=== PATIENT | male | born 1970 | race African-American/Black ===

== ENCOUNTER 2017-04-21 08:50 | Inpatient (IN) | payer OTHER ==
[~2017-04-21] VITALS: Ht 167.6 cm; Wt 125.7 kg
[2017-04-21] VITALS (11 sets, daily range): BP systolic 121–283; BP diastolic 57–145; PULSE 64–102; RESP 15–28; TEMP 98.1–99; O2SAT 95–100
[~2017-04-21 08:50] MED LIST: ERYT1O EACH EYE; GLUCTAB PO; HYDR-2768 PO; LISI-363 PO; LISI-587 PO
[2017-04-21] MEDS ORDERED: HYDR25TA5 PO (09:14)
[2017-04-21] MEDS ORDERED: METF500T PO (09:14)
[2017-04-21] MEDS ORDERED: LISI-515 PO (09:14)
--- NOTE | 2017-04-21 09:20 | PD ---
HPI Chief Complaint: Hypertension Time Seen by Provider: 09:09 Travel History International Travel<30 days: No Contact w/Intl Traveler<30days: No Traveled to known affect area: No History of Present Illness HPI 47 yo M c/o R forehead cephalgia, gradual onset over last 3 hours or so. 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 This morning he had 2 bowel movements, the prior was loose, as such the patient had no appetite, did not eat breakfast and did not take his lisinopril as he normally would every morning. HTN upon arrival noted. No LOC, numbness/tingling/weakness. No neck stiffness. [place] quality is throbbing and of moderate severity. PFSH Past Medical History ADHD: No Arthritis: No Asthma: No Autoimmune Disease: No Blood Disorders: No Anxiety: No Depression: No Heart Rhythm Problems: No Cancer: No Cardiovascular Problems: Yes (HTN/ POSSIBLE [place]) High Cholesterol: No Chemotherapy: No Chest Pain: No Congestive Heart Failure: No COPD: No Cerebrovascular Accident: No Diabetes: Yes Patient Takes Glucophage: Yes Diminished Hearing: No Endocrine: No Gastrointestinal Disorders: No GERD: No Glaucoma: No Genitourinary: No Headaches: No Hepatitis: No Hiatal Hernia: No Hypertension: Yes Immune Disorder: No Kidney Stones: No Musculoskeletal: Yes Neurologic: No Psychiatric: No Reproductive: No Respiratory: Yes Immunizations Current: Yes Migraines: No Myocardial Infarction: No Radiation Therapy: No Renal Failure: No Seizures: No Sickle Cell Disease: No Sleep Apnea: Yes Thyroid Disease: No Ulcer: No Past Surgical History Abdominal Surgery: No AICD: No Appendectomy: No Arteriovenous Shunt: No Cardiac Surgery: No Cholecystectomy: No Ear Surgery: No Endocrine Surgery: No Eye Surgery: No Genitourinary Surgery: No Gynecologic Surgery: No Insulin Pump: No Joint Replacement: No Neurologic Surgery: No Oral Surgery: No Pacemaker: No Thoracic Surgery: No Social History Alcohol Use: No Tobacco Use: No Substance Use: No Allergies-Medications (Allergen,Severity, Reaction): Coded Allergies: No Known Allergies (Verified , 02/21/16) Reported Meds & Prescriptions Reported Meds & Active Scripts Active Reported Lisinopril 20 Mg Tab 20 Mg PO DAILY Hydrochlorothiazide 25 Mg Tab 25 Mg PO DAILY Metformin (Metformin HCl) 500 Mg Tab 500 Mg PO BIDPC With meals Review of Systems Except as stated in HPI: all other systems reviewed are Neg General / Constitutional: No: Fever HENT: Positive: Headaches, No: Vertigo, Lightheadedness Neurologic: Positive: Headache, No: Weakness, Dizziness, Syncope, Focal Abnormalities, Coordination Problem, Change in Mentation, Slurred Speech, Paresthesia, Seizures, Sensory Disturbance Physical Exam Narrative GENERAL: 47 yo M, WNWD, mild distress 2/2 cephalgia SKIN: Warm and dry. HEAD: Atraumatic. Normocephalic. EYES: No scleral icterus. No injection or drainage. Normal ROM with conjugate gaze. PERRL. ENT: No nasal bleeding or discharge. Mucous membranes pink and moist. NECK: Trachea midline. No JVD. CARDIOVASCULAR: Regular rate and rhythm. RESPIRATORY: No accessory muscle use. Clear to auscultation. Breath sounds equal bilaterally. GASTROINTESTINAL: Abdomen soft, non-tender, nondistended. Hepatic and splenic margins not palpable. MUSCULOSKELETAL: Extremities without clubbing, cyanosis, or edema. No obvious deformities. NEUROLOGICAL: Awake and alert. No obvious cranial nerve deficits. Motor grossly within normal limits. Five out of 5 muscle strength in the arms and legs. Normal speech. PSYCHIATRIC: Appropriate mood and affect; insight and judgment normal. Data Data Last Documented VS Vital Signs Date Time Temp Pulse Resp B/P Pulse Ox O2 Delivery O2 Flow Rate FiO2 04/21/17 12:53 79 16 209/93 95 04/21/17 10:18 Room Air 04/21/17 08:58 98.1 VS reviewed Orders Complete Blood Count With Diff (04/21/17 09:18) Basic Metabolic Panel (Bmp) (04/21/17 09:18) Ct Brain W/O Iv Contrast(Rout) (04/21/17 09:18) Ecg Monitoring (04/21/17 09:18) Iv Access Insert/Monitor (04/21/17 09:18) Oximetry (04/21/17 09:18) Sodium Chloride 0.9% Flush (Ns Flush) (04/21/17 09:30) Acetaminophen (Tylenol) (04/21/17 09:30) Prochlorperazine Inj (Compazine Inj) (04/21/17 09:30) Diphenhydramine Inj (Benadryl Inj) (04/21/17 09:30) Lisinopril (Prinivil) (04/21/17 09:30) Mri Brain W&W/O Contrast (04/21/17 ) Nicardipine Inj (Cardene Inj) (04/21/17 11:00) Lorazepam Inj (Ativan Inj) (04/21/17 11:15) Act Partial Throm Time (Ptt) (04/21/17 11:05) Prothrombin Time / Inr (Pt) (04/21/17 11:05) Gadodiamide Pf Inj (Omniscan Pf Inj) (04/21/17 12:00) Cta Brain W Iv Contrast W 3d (04/21/17 13:16) Cta Neck W Iv Contrast W 3d (04/21/17 ) Admit Order (Ed Use Only) (04/21/17 13:50) Labs Laboratory Tests Test 04/21/17 04/21/17 09:25 11:00 White Blood Count 8.1 TH/MM3 Red Blood Count 4.29 MIL/MM3 Hemoglobin 11.9 GM/DL Hematocrit 35.7 % Mean Corpuscular Volume 83.2 FL Mean Corpuscular Hemoglobin 27.7 PG Mean Corpuscular Hemoglobin 33.3 % Concent Red Cell Distribution Width 13.6 % Platelet Count 310 TH/MM3 Mean Platelet Volume 8.8 FL Neutrophils (%) (Auto) 68.2 % Lymphocytes (%) (Auto) 22.2 % Monocytes (%) (Auto) 8.3 % Eosinophils (%) (Auto) 0.7 % Basophils (%) (Auto) 0.6 % Neutrophils # (Auto) 5.5 TH/MM3 Lymphocytes # (Auto) 1.8 TH/MM3 Monocytes # (Auto) 0.7 TH/MM3 Eosinophils # (Auto) 0.1 TH/MM3 Basophils # (Auto) 0.1 TH/MM3 CBC Comment DIFF FINAL Differential Comment Sodium Level 136 MEQ/L Potassium Level 3.8 MEQ/L Chloride Level 102 MEQ/L Carbon Dioxide Level 28.3 MEQ/L Anion Gap 6 MEQ/L Blood Urea Nitrogen 18 MG/DL Creatinine 1.17 MG/DL Estimat Glomerular Filtration 81 ML/MIN Rate Random Glucose 161 MG/DL Calcium Level 8.6 MG/DL Prothrombin Time 10.1 SEC Prothromb Time International 0.9 RATIO Ratio Activated Partial 27.0 SEC Thromboplast Time MDM Medical Decision Making Medical Screen Exam Complete: Yes Emergency Medical Condition: Yes Medical Record Reviewed: Yes Differential Diagnosis aneurysm, ICH, HTN emergency, sinus disease, HTN, hypertensive emergency Narrative Course Last [address] 04/21/17 0918 Signed Impressions: Service Date/Time: Friday, April 21, 2017 09:32 - CONCLUSION: 1. 1 cm rounded hyperdensity in the right para midline frontal region just anterior to the anterior horns of the lateral ventricles. 2. Differential diagnosis is extra-axial mass such as meningioma versus small cortical parenchymal hemorrhage or small extra axial hemorrhage. Recommend MRI brain with and without contrast for further evaluation. Johnny Hitchcock MD CBC & BMP Diagram 04/21/17 09:25 1020AM Pt resting comfortably. BP approx 200/100. No focal neuro deficit. Headache resolved. Cardene drip started. Goal of 140/90. MR added with aneurysm not excluded. D/w Dr Romero for neurosurgery, CTA added, CT techs notified, LUDIVINA Ding notified with CTA results by me. D/w Dr Sosa for rheumatology nurse service, ok for [facility] admission. Ongoing monitoring while in ER. Critical Care Narrative Aggregate critical care time was 40 minutes. Time to perform other separately billable procedures was not included in the critical care time. My time did not include minutes spent treating any other patients simultaneously or on activities that did not directly contribute to the patient's treatment. The services I provided to this patient were to treat and/or prevent clinically significant deterioration that could result in: intracranial hemorrhage, permanent neurologic injury I provided critical care services requiring my management, as noted below: Chart data review, documentation time, medication orders and management, vital sign assessments/reviewing monitor data, ordering and reviewing lab tests, ordering and interpreting/reviewing x-rays and diagnostic studies, care of the patient and discussion of the patient with the admitting physicians. Diagnosis Primary Impression: Headache Qualified Code: R51 - Nonintractable headache, unspecified chronicity pattern , unspecified headache type Additional Impressions: Hypertension Qualified Code: I15.9 - Secondary hypertension Intracranial mass Admitting Information Admitting Physician Requests: Azael Capps MD Apr 21, 2017 09:20
[2017-04-21] MEDS ORDERED: SODIUM CHLORIDE 0.9% FLUSH 10 ML FLUSH IVF PRN (09:30)
[2017-04-21] MEDS ORDERED: diphenhydrAMINE HCL 50 MG/ML VIAL IVP ONE (09:30)
[2017-04-21] MEDS ORDERED: PROCHLORPERAZINE INJ 10 MG/2 ML VIAL IVP ONE (09:30)
[2017-04-21] MEDS ORDERED: ACETAMINOPHEN 325 MG TAB PO ONE (09:30)
[2017-04-21] MEDS ORDERED: LISINOPRIL 20 MG TAB PO ONE (09:30)
[2017-04-21 09:45] LABS: AUTOMATED NEUTROPHIL # 5.5 TH/MM3 (1.8-7.7); BASOPHIL # 0.1 TH/MM3 (0-0.2); BASOPHIL % 0.6 % (0.0-2.0); EOSINOPHIL # 0.1 TH/MM3 (0-0.4); EOSINOPHIL % 0.7 % (0.0-4.0); HEMATOCRIT 35.7 % (39.0-51.0); HEMO FLAGS DIFF FINAL; LYMPH % 22.2 % (9.0-44.0); LYMPHOCYTE # 1.8 TH/MM3 (1.0-4.8); MEAN CELL VOLUME 83.2 FL (80.0-100.0); MEAN CORPUSCULAR HEMOGLOBIN 27.7 PG (27.0-34.0); MEAN CORPUSCULAR HGB CONC 33.3 % (32.0-36.0); MONO % 8.3 % (0.0-8.0); NEUT % 68.2 % (16.0-70.0); PLATELET COUNT 310 TH/MM3 (150-450); RED BLOOD COUNT 4.29 MIL/MM3 (4.50-5.90); RED CELL DISTRIBUTION WIDTH 13.6 % (11.6-17.2); WHITE BLOOD COUNT 8.1 TH/MM3 (4.0-11.0)
--- NOTE | 2017-04-21 09:45 | RADRPT ---
EXAM DATE/TIME: 04/21/2017 09:32 [facility] COMPARISON: No previous studies available for comparison. INDICATIONS : Headaches since this morning. RADIATION DOSE: 50.30 CTDIvol (mGy) MEDICAL HISTORY : Cardiovascular disease. Hypertension. Diabetes mellitus type 2. SURGICAL HISTORY : None. ENCOUNTER: Initial ACUITY: 1 day PAIN SCALE: 3/10 LOCATION: TECHNIQUE: Multiple contiguous axial images were obtained of the head. Using automated exposure control and adj ustment of the mA and/or kV according to patient size, radiation dose was kept as low as reasonably a chievable to obtain optimal diagnostic quality images. FINDINGS: CEREBRUM: 1.0 x 0.5 cm hyperdensity is seen in the right para midline frontal region just anterior to the anter ior horns of the lateral ventricles. No other evidence of mass or hemorrhage. POSTERIOR FOSSA: The cerebellum and brainstem are intact. The 4th ventricle is midline. The cerebellopontine angle i s unremarkable. EXTRACRANIAL: The visualized portion of the orbits is intact. SKULL: The calvaria is intact. No evidence of skull fracture. CONCLUSION: 1. 1 cm rounded hyperdensity in the right para midline frontal region just anterior to the anterior h orns of the lateral ventricles. 2. Differential diagnosis is extra-axial mass such as meningioma versus small cortical parenchymal he morrhage or small extra axial hemorrhage. Recommend MRI brain with and without contrast for further e valuation. Johnny Hitchcock MD on April 21, 2017 at 9:38 Board Certified Radiologist. This report was verified electronically.
[2017-04-21 10:01] LABS: BICARBONATE 28.3 MEQ/L (21.0-32.0); POTASSIUM 3.8 MEQ/L (3.5-5.1)
[2017-04-21] MEDS ORDERED: niCARdipine INJ 25 MG in SODIUM CHLOR 0.9% 250 ML INJ 250 ML IV SCH (11:00)
[2017-04-21] MEDS ORDERED: LORazepam 2 MG/ML VIAL IV PUSH ONE (11:15)
[2017-04-21 11:34] LABS: INTERNATIONAL NORMALIZED RATIO 0.9 RATIO; PROTHROMBIN TIME - PATIENT 10.1 SEC (9.8-11.6)
[2017-04-21] MEDS ORDERED: GADODIAMIDE PF 287 MG/ML 5 ML VIAL (for RAD MRI) IV ONE (12:00)
--- NOTE | 2017-04-21 13:04 | RADRPT ---
EXAM DATE/TIME: 04/21/2017 11:45 [facility] COMPARISON: CT BRAIN W/O CONTRAST, April 21, 2017, 9:32. INDICATIONS : Mass. Headache. CONTRAST: 25 cc Omniscan (gadodiamide) IV MEDICAL HISTORY : Hypertension. Diabetes mellitus type 2. SURGICAL HISTORY : None. ENCOUNTER: Initial ACUITY: 1 day PAIN SCORE: 5/10 LOCATION: Head. TECHNIQUE: Multiplanar, multisequence MRI of the brain was performed both prior to and following the administrat ion of paramagnetic contrast. FINDINGS: CEREBRUM: The ventricles are normal for age. No evidence of midline shift or acute infarction. No extraaxial fluid collections are seen. The pituitary gland and suprasellar cistern are normal in configuration. Centered in the genu of the corpus callosum, there is a focal area that shows central increased T2 flair signal intensity with a rim of diminished attenuation on the same pulse sequence which corre sponds to the area of increased density on the previous CTA. On the T1-weighted images, the area slig htly diminished in signal intensity relative to the adjacent white matter tracts. I do not see defini tive enhancement but there may be a vessel coursing through the center of this lesion and a hemosider in ring is identified on the axial T2-weighted images with marked blooming artifact on the susceptibi lity weighted images characteristic of regional blood. WHITE MATTER: Minimal white matter changes.. POSTERIOR FOSSA: The cerebellum and brainstem are intact. The 4th ventricle is midline. The cerebellopontine angle is unremarkable. The cerebellar tonsils are normal in position. DIFFUSION IMAGING: No focal areas of restricted diffusion are seen. No evidence of acute infarction. EXTRACRANIAL: The visualized portions of the orbits and paranasal sinuses are unremarkable. POST-CONTRAST: No abnormal areas of parenchymal or dural enhancement. No evidence of blood-brain barrier breakdown. Lesion in the genu of the corpus callosum does not enhance but again, there does appear to be a vess el coursing through the center of the same. CONCLUSION: 1. Area of increased density on CT corresponds to a 8-9 mm nonenhancing lesion in the genu of the cor pus callosum which does appear to contain a central vessel. This same lesion shows a ring of hemoside rin on the axial T2-weighted images with marked blooming artifact on the susceptibility weighted imag es characteristic of regional blood. Imaging characteristics are overtly benign and I would consider entities such as a cavernous angioma or other small vascular malformation. I believe a low-grade bobby plasm or aneurysm is much less likely but I would recommend a CTA of the head to exclude the latter. 2. Otherwise, mild, scattered white matter changes. Jas Chavarria MD on April 21, 2017 at 12:23 Board Certified Radiologist. This report was verified electronically.
--- NOTE | 2017-04-21 13:53 | PD.CONS ---
(Miguelito Romero MD) HPI Consult Requested By Primary Care Physician No Primary Care Physician (Miguelito Romero MD) Service NRS Consult Requested By ED Physician Reason for Consult Aneurysm History of Present Illness Mr. Mehta is a 47-year-old male who presents to [facility] ED today with complaints of headaches. The history was obtained with the aid of his at bedside as the patient received pain medication and is drowsy. His reports the patient had complained of headaches located behind the right eye this morning. It was severe enough that he presented to the ED for further evaluation. 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 An MRI of brain was obtained which showed a mass in the right paramidline frontal possible vascular malformation versus cavernous angioma. The patient denies focal weakness, double vision, seizures, nausea, vomiting. He reports no personal history of aneurysm, tumors or cancers. A neurosurgical evaluation was requested. (Yani Ding) Review of Systems Constitutional: DENIES: Fever, Chills Eyes: DENIES: Vision loss, Double Vision Ears, nose, mouth, throat: DENIES: Hearing loss Respiratory: DENIES: Apneas, Hemoptysis, Shortness of breath Cardiovascular: DENIES: Chest pain Genitourinary: DENIES: Urinary incontinence Neurologic: COMPLAINS OF: Headache, DENIES: Paresthesias, Seizures, Speech Problems, Poor Balance (Yani Ding) Past Family Social History Allergies: Coded Allergies: No Known Allergies (Verified , 02/21/16) Past Medical History Hypertension Diabetes Sleep Apnea Past Surgical History No previous surgical history Reported Medications reviewed in EMR Active Ordered Medications Current Medications Medications (Trade) Dose Ordered Sig/Jatin Route PRN Reason Start Time Stop Time Status Last Admin Dose Admin Sodium Chloride (NS 1000 ml Inj) 1,000 ml @ 84 mls/hr [id number] IV 04/21/17 14:30 Sodium Chloride (NS Flush) 2 ml UNSCH PRN IV FLUSH FLUSH AFTER USING IV ACCESS 04/21/17 14:00 Sodium Chloride (NS Flush) 2 ml BID IV FLUSH 04/21/17 21:00 Acetaminophen (Tylenol) 650 mg Q6H PRN PO PAIN 1-10 AND/OR FEVER >101F 04/21/17 14:00 Pantoprazole Sodium (Protonix Inj) 40 mg DAILY IV 04/22/17 09:00 Ondansetron HCl (Zofran Inj) 4 mg Q6H PRN IV NAUSEA OR VOMITING 04/21/17 14:00 Miscellaneous Information 1 [id number] XX 04/21/17 14:00 04/21/17 14:00 Chlorhexidine Gluconate (Chlorhexidine 2% Cloth) 3 pack Taper DAILY@04 TOP 04/22/17 04:00 04/18/18 03:59 Chlorhexidine Gluconate (Chlorhexidine 2% Cloth) 3 pack UNSCH PRN TOP HYGIENIC CARE 04/21/17 14:00 Senna/Docusate Sodium (Ashley-Colace) 1 tab BID PO 04/21/17 21:00 Magnesium Hydroxide (Milk Of Magnesia Liq) 30 ml Q12H PRN PO MILD - MODERATE CONSTIPATION 04/21/17 14:00 Sennosides (Senokot) 17.2 mg Q12H PRN PO MODERATE - SEVERE CONSTIPATION 04/21/17 14:00 Bisacodyl (Dulcolax Supp) 10 mg DAILY PRN RECTAL SEVERE CONSITIPATION 04/21/17 14:00 Lactulose 30 ml 30 ml DAILY PRN PO SEVERE CONSITIPATION 04/21/17 14:00 Nicardipine HCl/ Sodium Chloride (Cardene Inj/NS 250 ml Inj) 260 ml @ 0 mls/hr TITRATE IV 04/21/17 16:00 Insulin Aspart (NovoLOG SUPPLEMENTAL SCALE) 1 Q6HR SQ 04/21/17 18:00 Dextrose (D50w (Vial) Inj) 25 ml UNSCH PRN IV HYPOGLYCEMIA-SEE COMMENTS 04/21/17 14:15 Glucagon (Glucagon Inj) 1 mg UNSCH PRN IM/SQ HYPOGLYCEMIA-SEE COMMENTS 04/21/17 14:15 Labetalol HCl (Trandate Inj) 20 mg Q2HR PRN IV PUSH SBP greater than 180mm Hg 04/21/17 15:30 UNV Family History denies family history of aneurysm, tumors or cancers. has history of heart disease in family Social History denies tobacco, etoh, or illicit drug use. (Yani Ding) Physical Exam Vital Signs Vital Signs Date Time Temp Pulse Resp B/P Pulse Ox O2 Delivery O2 Flow Rate FiO2 04/21/17 12:53 79 16 209/93 95 04/21/17 10:18 64 18 219/114 98 Room Air 04/21/17 09:19 74 18 204/88 100 Room Air 04/21/17 08:58 98.1 86 15 283/145 97 Physical Exam Mr. Mehta is awake, but drowsy due to pain medications. Oriented to time, place and person. Speech is fluent. Follows simple commands. Cranial nerve examination: pupils 2-3 equal, round, and reactive to light. Extra -ocular movements are intact. Facial motor and sensory function are normal and symmetrical. Gross hearing is intact, bilaterally. The uvula is midline and elevates symmetrically with the soft palate. Neck is soft and supple. No meningismus or nuchal rigidity. Motor: moves both upper and lower extremities symmetrically Sensory examination is intact to light touch in both the upper and lower extremities, symmetrically. Deep tendon reflexes are 1+ and symmetrical in the biceps, triceps, and brachioradialis, bilaterally, in the upper extremities. In the lower extremities , the patellar and Achilles are 1+, bilaterally. There is a bilateral plantar flexion response. Hoffmanns sign is negative. Cerebellar examination is intact Laboratory Laboratory Tests Test 04/21/17 04/21/17 09:25 11:00 White Blood Count 8.1 Red Blood Count 4.29 Hemoglobin 11.9 Hematocrit 35.7 Mean Corpuscular Volume 83.2 Mean Corpuscular Hemoglobin 27.7 Mean Corpuscular Hemoglobin 33.3 Concent Red Cell Distribution Width 13.6 Platelet Count 310 Mean Platelet Volume 8.8 Neutrophils (%) (Auto) 68.2 Lymphocytes (%) (Auto) 22.2 Monocytes (%) (Auto) 8.3 Eosinophils (%) (Auto) 0.7 Basophils (%) (Auto) 0.6 Neutrophils # (Auto) 5.5 Lymphocytes # (Auto) 1.8 Monocytes # (Auto) 0.7 Eosinophils # (Auto) 0.1 Basophils # (Auto) 0.1 CBC Comment DIFF FINAL Differential Comment Sodium Level 136 Potassium Level 3.8 Chloride Level 102 Carbon Dioxide Level 28.3 Anion Gap 6 Blood Urea Nitrogen 18 Creatinine 1.17 Estimat Glomerular Filtration 81 Rate Random Glucose 161 Calcium Level 8.6 Prothrombin Time 10.1 Prothromb Time International 0.9 Ratio Activated Partial 27.0 Thromboplast Time (Miguelito Romero MD) Physical Exam Mr. Mehta is awake, but drowsy due to pain medications. Oriented to time, place and person. Speech is fluent. Follows simple commands. Cranial nerve examination: pupils 2-3 equal, round, and reactive to light. Extra -ocular movements are intact. Facial motor and sensory function are normal and symmetrical. Gross hearing is intact, bilaterally. The uvula is midline and elevates symmetrically with the soft palate. Neck is soft and supple. No meningismus or nuchal rigidity. Motor: moves both upper and lower extremities symmetrically Sensory examination is intact to light touch in both the upper and lower extremities, symmetrically. Deep tendon reflexes are 1+ and symmetrical in the biceps, triceps, and brachioradialis, bilaterally, in the upper extremities. In the lower extremities , the patellar and Achilles are 1+, bilaterally. There is a bilateral plantar flexion response. Hoffmanns sign is negative. Cerebellar examination is intact to [id number] test (Yani Ding) Result Diagram: 04/21/1792404/21/17924 Imaging Last Impressions Head CT 04/21/17917 Signed Impressions: Service Date/Time: Friday, April 21, 2017 09:32 - CONCLUSION: 1. 1 cm rounded hyperdensity in the right para midline frontal region just anterior to the anterior horns of the lateral ventricles. 2. Differential diagnosis is extra-axial mass such as meningioma versus small cortical parenchymal hemorrhage or small extra axial hemorrhage. Recommend MRI brain with and without contrast for further evaluation. Johnny Hitchcock MD Chest X-Ray 04/21/17 Signed Impressions: Service Date/Time: Friday, April 21, 2017 14:24 - CONCLUSION: 1. Hypoinflation with no acute infiltrate. 2. Borderline prominent but well compensated heart. Jas Chavarria MD Brain MRI 04/21/17 Signed Impressions: Service Date/Time: Friday, April 21, 2017 11:45 - CONCLUSION: 1. Area of increased density on CT corresponds to a 8-9 mm nonenhancing lesion in the genu of the corpus callosum which does appear to contain a central vessel. This same lesion shows a ring of hemosiderin on the axial T2-weighted images with marked blooming artifact on the susceptibility weighted images characteristic of regional blood. Imaging characteristics are overtly benign and I would consider entities such as a cavernous angioma or other small vascular malformation. I believe a low-grade neoplasm or aneurysm is much less likely but I would recommend a CTA of the head to exclude the latter. 2. Otherwise, mild, scattered white matter changes. Jas Chavarria MD (Yani Ding) Attending Statement Neuro. I have reviewed his clinical and radiological findings. Start neuro checks in a serial fashion. Recommend follow up CT in 24 hrs HTN. Treat with cardene drip and antihypertensives as needed Pulmonary. Wean mechanical ventilation. Continue aggressive pulmonary toilette, nasotracheal suction, and breathing treatments with nebulizers. PT and OT evaluation Nutrition. NPO Renal. monitor closely urine output, BUN and creatinine Endocrine. Monitor serial Acu checks and SSI as needed in detail ID monitor for signs of infection Protonix for stress ulcer prophylaxis Anand hose and SCD's for DVT prophylaxis (Miguelito Romero MD) Miguelito Romero MD Apr 21, 2017 13:53 Yani Ding Apr 21, 2017 15:37
[2017-04-21] MEDS ORDERED: BISACODYL 10 MG SUPP RECTAL PRN (14:00)
[2017-04-21] MEDS ORDERED: ONDANSETRON HCL 4 MG/2 ML VIAL IV PRN (14:00)
[2017-04-21] MEDS ORDERED: RESP: ALBUTEROL 2.5 MG/IPRATROPIUM 0.5 MG NEB (PRN) INH (14:00)
[2017-04-21] MEDS ORDERED: SENNOSIDES 8.6 MG TAB PO PRN (14:00)
[2017-04-21] MEDS ORDERED: MAGNESIUM HYDROXIDE SUSP 30 ML CUP PO PRN (14:00)
[2017-04-21] MEDS ORDERED: MISCELLANEOUS NURSING INFORMATION XX SCH (14:00)
[2017-04-21] MEDS ORDERED: ACETAMINOPHEN 325 MG TAB PO PRN (14:00)
[2017-04-21] MEDS ORDERED: SODIUM CHLORIDE 0.9% FLUSH 10 ML FLUSH IV FLUSH PRN (14:00)
[2017-04-21] MEDS ORDERED: LACTULOSE SYRUP 20 GM/30 ML CUP PO PRN (14:00)
[2017-04-21] MEDS ORDERED: CHLORHEXIDINE GLUCONATE 2 % 1 PACK (2 CLOTHS) TOP PRN (14:00)
[2017-04-21] MEDS ORDERED: GLUCAGON 1 MG/ML VIAL IM/SQ PRN (14:15)
[2017-04-21] MEDS ORDERED: DEXTROSE 50% IN WATER 50 ML VIAL(D50) IV PRN (14:15)
[2017-04-21] MEDS: SODIUM CHLOR 0.9% 1000 ML INJ 1,000 ML IV SCH (14:30)
--- NOTE | 2017-04-21 14:46 | RADRPT ---
EXAM DATE/TIME: 04/21/2017 14:24 [facility] COMPARISON: No previous studies available for comparison. INDICATIONS : Headaches MEDICAL HISTORY : Cardiovascular disease. Hypertension. Diabetes mellitus type 2. SURGICAL HISTORY : None. ENCOUNTER: Initial ACUITY: 1 day PAIN SCORE: 0/10 LOCATION: Bilateral chest FINDINGS: A single view of the chest demonstrates the lungs to be hypoinflated but clear. Accounting for low anthony ng lines, heart size is borderline the well compensated. Osseous structures are intact with some dege nerative spurring of the dorsal spine. CONCLUSION: 1. Hypoinflation with no acute infiltrate. 2. Borderline prominent but well compensated heart. Jas Chavarria MD on April 21, 2017 at 14:40 Board Certified Radiologist. This report was verified electronically.
[2017-04-21] MEDS ORDERED: LABETALOL HCL 100 MG/20 ML VIAL IV PUSH STA (15:22)
[2017-04-21] MEDS ORDERED: LABETALOL HCL 100 MG/20 ML VIAL IV PUSH PRN (15:30)
--- NOTE | 2017-04-21 15:46 | RADRPT ---
EXAM DATE/TIME: 04/21/2017 14:17 [facility] COMPARISON: MRI BRAIN W & W/O CONTRAST, April 21, 2017, 11:45. INDICATIONS : Headaches right side pain. IV CONTRAST: 97 cc Omnipaque 350 (iohexol) IV ; Cumulative dose for multiple exams. RADIATION DOSE: 28.80 CTDIvol (mGy) ; Combined studies MEDICAL HISTORY : Cardiovascular disease. Hypertension. Diabetes mellitus type 2. SURGICAL HISTORY : None. ENCOUNTER: Initial ACUITY: 1 day PAIN SCALE: 7/10 LOCATION: cranial TECHNIQUE: Volumetric scanning was performed using a multi-row detector CT scanner. The data was post processed with a variety of visualization algorithms including full volume maximum intensity pr ojection, multi-planar sliding thin slab reformation, curved planar reformation, and surface renderin g techniques. Using automated exposure control and adjustment of the mA and/or kV according to patie nt size, radiation dose was kept as low as reasonably achievable to obtain optimal diagnostic quality images. FINDINGS: There is excellent visualization of the major intracranial arteries out to the second-order branch ve ssels. There is no evidence for aneurysm, vessel truncation or stenosis, and no evidence for vascula r malformation. CONCLUSION: Negative CTA of the brain. Enhancing lesions involve the corpus callosum, dense whit e matter tracts, include glioblastoma anaplastic astrocytoma and primary STONE FABRICATOR lymphoma. MS can give s imilar appearance but there are no other lesions in the brain to suggest this is the diagnosis. This is an unusual place for an isolated brain metastasis. Ry Preston MD FACR on April 21, 2017 at 15:35 Board Certified Radiologist. This report was verified electronically.
[2017-04-21] MEDS ORDERED: IOHEXOL 350 MG/ML 10 ML VIAL (for RAD DIAG) IV ONE (16:43)
--- NOTE | 2017-04-21 17:11 | RADRPT ---
EXAM DATE/TIME: 04/21/2017 14:17 [facility] COMPARISON: No previous studies available for comparison. TECHNIQUE: Volumetric scanning was performed using a multirow detector CT scanner. The data was post processed with a variety of visualization algorithms including full-volume maximum intensity pro jection, multiplanar sliding thin-slab reformation, curved-planar reformation, and surface-rendering techniques. Using automated exposure control and adjustment of the mA and/or kV according to patient size, radiation dose was kept as low as reasonably achievable to obtain optimal diagnostic quality i mages. FINDINGS: AORTIC ARCH: There is a three-vessel origin of the great vessels from the aorta. No evidence of ostial narrowing. RIGHT CAROTID: The common carotid artery is intact. The carotid bulb has a normal configuration w ithout ulceration or narrowing. Focal calcified plaque at the origin of the internal carotid artery w ith resultant mild, less than 50%, stenosis. No significant ulceration. The internal carotid artery l umen is otherwise smooth without stenosis. The external carotid artery is intact. LEFT CAROTID: The common carotid artery is intact. The carotid bulb has a normal configuration. Calcified plaque extending from the ball of the into the origin of the left internal carotid artery w ith resultant mild, less than 50%, stenosis. No significant ulceration. The internal carotid artery l umen is otherwise smooth without stenosis. The external carotid artery is intact. VERTEBRALS: Asymmetric, left dominant, vertebral arteries. No stenotic lesions are seen. SOFT TISSUES: Borderline level 2, 3, and 4 cervical nodes. CONCLUSION: 1. Very mild calcified plaque involving the origin of the internal carotid arteries bilaterally resul ting in mild, less than 50%, stenosis. 2. Otherwise, unremarkable CTA examination of the neck. Garrett Romero MD on April 21, 2017 at 16:47 Board Certified Radiologist. This report was verified electronically.
--- NOTE | 2017-04-21 17:29 | HHI.HP ---
HPI Service Critical Care Medicine Primary Care Physician No Primary Care Physician Admission Diagnosis Poss Intracranial Aneurysm, HTN, [place]X Diagnosis: Travel History International Travel<30 Days: No Contact w/Intl Traveler <30 Da: No Traveled to Known Affected Are: No History of Present Illness History of Present Illness HPI 47 yo M c/o R forehead cephalgia, gradual onset over 3 hours or so prior to coming to ER. 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 This morning he had 2 bowel movements, the prior was loose, as such the patient had no appetite, did not eat breakfast and did not take his lisinopril as he normally would every morning. HTN upon arrival noted. No LOC, numbness/tingling/ weakness. No neck stiffness. PALAFOX quality is throbbing and of moderate severity. Patient had a systolic blood pressure in the 230s in the ER. He was initiated on a nicardipine drip. Head CT revealed hyperdense lesion in the frontal region pallor midline anterior to anterior horns of the lateral ventricles. MRI brain and CTA ordered for further evaluation and neurosurgery consult requested. Dr. Romero. Patient was accepted for admission by critical care medicine service. When I evaluated the patient in the ER he had just finished his MRI and CTA and was drowsy from Ativan and Benadryl which she had received earlier prior to imaging. He knew he was at the hospital and was following commands appropriately. He still had a headache that this was slightly better. He was on a nicardipine drip at that time at 15 mg/h with systolic blood pressure 160s. He denied any history of similar symptoms previously and stated that he is a known diabetic and hypertensive and is usually compliant with his meds and has a well-controlled blood pressure and fingerstick glucoses runs around 120s to 140s on metformin. History PFSH Past Medical History ADHD: No Arthritis: No Asthma: No Autoimmune Disease: No Blood Disorders: No Anxiety: No Depression: No Heart Rhythm Problems: No Cancer: No Cardiovascular Problems: Yes (HTN/ POSSIBLE NH) High Cholesterol: No Chemotherapy: No Chest Pain: No Congestive Heart Failure: No COPD: No Cerebrovascular Accident: No Diabetes: Yes Patient Takes Glucophage: Yes Diminished Hearing: No Endocrine: No Gastrointestinal Disorders: No GERD: No Glaucoma: No Genitourinary: No Headaches: No Hepatitis: No Hiatal Hernia: No Hypertension: Yes Immune Disorder: No Kidney Stones: No Musculoskeletal: Yes Neurologic: No Psychiatric: No Reproductive: No Respiratory: Yes Immunizations Current: Yes Migraines: No Myocardial Infarction: No Radiation Therapy: No Renal Failure: No Seizures: No Sickle Cell Disease: No Sleep Apnea: Yes Thyroid Disease: No Ulcer: No Past Surgical History Abdominal Surgery: No AICD: No Appendectomy: No Arteriovenous Shunt: No Cardiac Surgery: No Cholecystectomy: No Ear Surgery: No Endocrine Surgery: No Eye Surgery: No Genitourinary Surgery: No Gynecologic Surgery: No Insulin Pump: No Joint Replacement: No Neurologic Surgery: No Oral Surgery: No Pacemaker: No Thoracic Surgery: No Social History Alcohol Use: No Tobacco Use: No Substance Use: No Allergies-Medications Allergies-Medications (Allergen,Severity, Reaction): Coded Allergies: No Known Allergies (Verified , 02/21/16) Reported Meds & Prescriptions Reported Meds & Active Scripts Active Reported Lisinopril 20 Mg Tab 20 Mg PO DAILY Hydrochlorothiazide 25 Mg Tab 25 Mg PO DAILY Metformin (Metformin HCl) 500 Mg Tab 500 Mg PO BIDPC With meals ROS Review of Systems Except as stated in HPI: all other systems reviewed are Neg General / Constitutional: No: Fever HENT: Positive: Headaches, No: Vertigo, Lightheadedness Neurologic: Positive: Headache, No: Weakness, Dizziness, Syncope, Focal Abnormalities, Coordination Problem, Change in Mentation, Slurred Speech, Paresthesia, Seizures, Sensory Disturbance Physical Exam Vital Signs Vital Signs Date Time Temp Pulse Resp B/P Pulse Ox O2 Delivery O2 Flow Rate FiO2 04/21/17 16:25 70 16 156/72 96 04/21/17 16:12 70 16 121/62 96 04/21/17 12:53 79 16 209/93 95 04/21/17 10:18 64 18 219/114 98 Room Air 04/21/17 09:19 74 18 204/88 100 Room Air 04/21/17 08:58 98.1 86 15 283/145 97 Physical Exam Narrative GENERAL: 47 yo female, laying in ER stretcher, drowsy but easily arousable, not in any acute distress. SKIN: Warm and dry. HEAD: Atraumatic. Normocephalic. EYES: No scleral icterus. No injection or drainage. Normal ROM with conjugate gaze. PERRL. ENT: No nasal bleeding or discharge. Mucous membranes pink and moist. NECK: Trachea midline. No JVD. CARDIOVASCULAR: Regular rate and rhythm. RESPIRATORY: No accessory muscle use. Clear to auscultation. Breath sounds equal bilaterally. GASTROINTESTINAL: Abdomen soft, non-tender, nondistended. Hepatic and splenic margins not palpable. MUSCULOSKELETAL: Extremities without clubbing, cyanosis, or edema. No obvious deformities. NEUROLOGICAL: Awake and alert. No obvious cranial nerve deficits. Motor grossly within normal limits. Five out of 5 muscle strength in the arms and legs. Normal speech. PSYCHIATRIC: Appropriate mood and affect; insight and judgment normal. Laboratory Laboratory Tests Test 04/21/17 04/21/17 09:25 11:00 White Blood Count 8.1 Red Blood Count 4.29 Hemoglobin 11.9 Hematocrit 35.7 Mean Corpuscular Volume 83.2 Mean Corpuscular Hemoglobin 27.7 Mean Corpuscular Hemoglobin 33.3 Concent Red Cell Distribution Width 13.6 Platelet Count 310 Mean Platelet Volume 8.8 Neutrophils (%) (Auto) 68.2 Lymphocytes (%) (Auto) 22.2 Monocytes (%) (Auto) 8.3 Eosinophils (%) (Auto) 0.7 Basophils (%) (Auto) 0.6 Neutrophils # (Auto) 5.5 Lymphocytes # (Auto) 1.8 Monocytes # (Auto) 0.7 Eosinophils # (Auto) 0.1 Basophils # (Auto) 0.1 CBC Comment DIFF FINAL Differential Comment Sodium Level 136 Potassium Level 3.8 Chloride Level 102 Carbon Dioxide Level 28.3 Anion Gap 6 Blood Urea Nitrogen 18 Creatinine 1.17 Estimat Glomerular Filtration 81 Rate Random Glucose 161 Calcium Level 8.6 Prothrombin Time 10.1 Prothromb Time International 0.9 Ratio Activated Partial 27.0 Thromboplast Time Result Diagram: 04/21/1792404/21/17924 Imaging Last Impressions Head CTA 04/21/17 1316 Signed Impressions: Service Date/Time: Friday, April 21, 2017 14:17 - CONCLUSION: Negative CTA of the brain. Enhancing lesions involve the corpus callosum, dense white matter tracts, include glioblastoma anaplastic astrocytoma and primary [employer] SPRING [employer]AME BUILDER lymphoma. MS can give similar appearance but there are no other lesions in the brain to suggest this is the diagnosis. This is an unusual place for an isolated brain metastasis. Ry Preston MD FACR Head CT 04/21/1718 Signed Impressions: Service Date/Time: Friday, April 21, 2017 09:32 - CONCLUSION: 1. 1 cm rounded hyperdensity in the right para midline frontal region just anterior to the anterior horns of the lateral ventricles. 2. Differential diagnosis is extra-axial mass such as meningioma versus small cortical parenchymal hemorrhage or small extra axial hemorrhage. Recommend MRI brain with and without contrast for further evaluation. Johnny Hitchcock MD Chest X-Ray 04/21/17 0000 Signed Impressions: Service Date/Time: Friday, April 21, 2017 14:24 - CONCLUSION: 1. Hypoinflation with no acute infiltrate. 2. Borderline prominent but well compensated heart. Jas Chavarria MD Brain MRI 04/21/17 0000 Signed Impressions: Service Date/Time: Friday, April 21, 2017 11:45 - CONCLUSION: 1. Area of increased density on CT corresponds to a 8-9 mm nonenhancing lesion in the genu of the corpus callosum which does appear to contain a central vessel. This same lesion shows a ring of hemosiderin on the axial T2-weighted images with marked blooming artifact on the susceptibility weighted images characteristic of regional blood. Imaging characteristics are overtly benign and I would consider entities such as a cavernous angioma or other small vascular malformation. I believe a low-grade neoplasm or aneurysm is much less likely but I would recommend a CTA of the head to exclude the latter. 2. Otherwise, mild, scattered white matter changes. Jas Chavarria MD Assessment and Plan Assessment and Plan 47-year-old male with: Hypertensive emergency Intracranial lesion in the frontal area (possible mass) Diabetes mellitus Plan: Neuro: Neurosurgery has been consulted and patient has been evaluated by Dr. Romero. Further management for intracranial lesion per Dr. Romero. Continue neuro checks Cardiovascular: On nicardipine drip. Labetalol when necessary added. Will resume by mouth lisinopril and add Norvasc 10 mg by mouth daily for better blood pressure control. Pulmonary: Supplemental O2 as needed. Bronchodilators when necessary GI/liver: Advance by mouth diet if okay with neurosurgery. We will resume by mouth meds. Renal/: Follow intake output, monitor and replete electro lites, follow BUN/ creatinine. IV hydration ID: No indication for antibiotics at this time. Endocrine: SSI for glycemic control. Hold metformin in view of IV contrast exposure and nothing by mouth. Prophylaxis: PPI/SCDs. 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 Condition critical. Time spent on critical care excluding procedures 50 minutes Dennis Sosa MD Apr 21, 2017 17:29
[2017-04-21] MEDS: niCARdipine INJ 25 MG in SODIUM CHLOR 0.9% 250 ML INJ 250 ML IV SCH ×3 (17:38→23:34)
[2017-04-21] MEDS: LISINOPRIL 20 MG TAB PO SCH (18:39)
[2017-04-21] MEDS: HYDROCHLOROTHIAZIDE 25 MG TAB PO SCH (18:39)
[2017-04-21] MEDS: INSULIN ASPART SUPPLEMENTAL SCALE SQ SCH ×2 (18:55→23:48)
[2017-04-21] MEDS: DOCUSATE SODIUM 50 MG/SENNA 8.6 MG TAB PO SCH (19:39)
[2017-04-21] MEDS: SODIUM CHLORIDE 0.9% FLUSH 10 ML FLUSH IV FLUSH SCH (21:47)
[2017-04-22] VITALS (12 sets, daily range): BP systolic 138–158; BP diastolic 58–72; PULSE 67–98; RESP 16–24; TEMP 98.1–98.9; O2SAT 96–99
[2017-04-22] MEDS: niCARdipine INJ 25 MG in SODIUM CHLOR 0.9% 250 ML INJ 250 ML IV SCH ×3 (02:29→11:28)
[2017-04-22] MEDS: SODIUM CHLOR 0.9% 1000 ML INJ 1,000 ML IV SCH (02:30)
[2017-04-22] MEDS: CHLORHEXIDINE GLUCONATE 2 % 1 PACK (2 CLOTHS) TOP SCH (02:30)
[2017-04-22 05:43] LABS: BASOPHIL # 0.1 TH/MM3 (0-0.2); BASOPHIL % 0.8 % (0.0-2.0); EOSINOPHIL # 0.1 TH/MM3 (0-0.4); EOSINOPHIL % 1.1 % (0.0-4.0); HEMATOCRIT 37.2 % (39.0-51.0); HEMO FLAGS DIFF FINAL; LYMPH % 24.5 % (9.0-44.0); LYMPHOCYTE # 2.3 TH/MM3 (1.0-4.8); MEAN CELL VOLUME 83.4 FL (80.0-100.0); MEAN CORPUSCULAR HGB CONC 32.4 % (32.0-36.0); MONO % 8.9 % (0.0-8.0); NEUT % 64.7 % (16.0-70.0); PLATELET COUNT 305 TH/MM3 (150-450); RED BLOOD COUNT 4.47 MIL/MM3 (4.50-5.90); RED CELL DISTRIBUTION WIDTH 13.7 % (11.6-17.2); WHITE BLOOD COUNT 9.2 TH/MM3 (4.0-11.0)
[2017-04-22 05:49] LABS: ANION GAP 8 MEQ/L (5-15); AST (GOT) 16 U/L (15-37); BICARBONATE 28.4 MEQ/L (21.0-32.0); BLOOD UREA NITROGEN 16 MG/DL (7-18); CHLORIDE 100 MEQ/L (98-107); GLOMERULAR FILTRATION RATE 92 ML/MIN (>89); POTASSIUM 3.7 MEQ/L (3.5-5.1); SODIUM (NA) 136 MEQ/L (136-145)
[2017-04-22 05:50] LABS: ALT (GPT) 33 U/L (12-78)
[2017-04-22] MEDS: INSULIN ASPART SUPPLEMENTAL SCALE SQ SCH ×3 (05:51→18:00)
[2017-04-22 05:53] LABS: ALKALINE PHOSPHATASE 64 U/L (45-117); TOTAL BILIRUBIN ADULT 0.4 MG/DL (0.2-1.0)
[2017-04-22] MEDS: SODIUM CHLORIDE 0.9% FLUSH 10 ML FLUSH IV FLUSH SCH ×2 (08:48→21:00)
[2017-04-22] MEDS: PANTOPRAZOLE SODIUM 40 MG VIAL IV SCH (08:48)
[2017-04-22] MEDS: LISINOPRIL 20 MG TAB PO SCH (08:49)
[2017-04-22] MEDS: HYDROCHLOROTHIAZIDE 25 MG TAB PO SCH (08:49)
[2017-04-22] MEDS: DOCUSATE SODIUM 50 MG/SENNA 8.6 MG TAB PO SCH ×2 (08:49→21:00)
--- NOTE | 2017-04-22 13:06 | HHI.NSPN ---
(Yani Ding) Note Status Status: Progress Note (Yani Ding) Interval History Interval History Mr. Mehta is a 47-year-old male who presents to [facility] ED today with complaints of headaches. The history was obtained with the aid of his at bedside as the patient received pain medication and is drowsy. His reports the patient had complained of headaches located behind the right eye this morning. It was severe enough that he presented to the ED for further evaluation. 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 An MRI of brain was obtained which showed a mass in the right paramidline frontal possible vascular malformation versus cavernous angioma. The patient denies focal weakness, double vision, seizures, nausea, vomiting. He reports no personal history of aneurysm, tumors or cancers. A neurosurgical evaluation was requested. 04/22: headaches resolved, denies focal weakness, vomiting, seizures, vision changes (Yani Ding) Labs, Micro, & Vital Signs Results Date Time Temp Pulse Resp B/P Pulse Ox O2 Delivery O2 Flow Rate FiO2 04/22/17 12:00 78 04/22/17 12:00 98.1 78 16 151/69 97 04/22/17 10:00 74 04/22/17 08:00 86 04/22/17 08:00 98.7 86 20 158/72 99 04/22/17 07:00 Room Air 04/22/17 06:00 70 04/22/17 04:00 67 04/22/17 04:00 98.7 67 16 143/64 96 04/22/17 02:00 70 04/22/17 00:00 98.9 78 20 138/58 98 04/22/17 00:00 78 04/21/17 22:00 74 04/21/17 20:00 102 04/21/17 20:00 99.0 102 28 164/75 100 04/21/17 19:00 Room Air 99 04/21/17 17:48 67 04/21/17 17:45 98.7 74 15 147/63 100 04/21/17 17:24 98.3 79 16 147/57 97 04/21/17 16:25 70 16 156/72 96 04/21/17 16:12 70 16 121/62 96 04/22/17 07:00 Intake Total 2735 ml Output Total 1650 ml Balance 1085 ml Constitutional Vital Signs Date Time Temp Pulse Resp B/P Pulse Ox O2 Delivery O2 Flow Rate FiO2 04/22/17 12:00 78 04/22/17 12:00 98.1 78 16 151/69 97 04/22/17 10:00 74 04/22/17 08:00 86 04/22/17 08:00 98.7 86 20 158/72 99 04/22/17 07:00 Room Air 04/22/17 06:00 70 04/22/17 04:00 67 04/22/17 04:00 98.7 67 16 143/64 96 04/22/17 02:00 70 04/22/17 00:00 98.9 78 20 138/58 98 04/22/17 00:00 78 04/21/17 22:00 74 04/21/17 20:00 102 04/21/17 20:00 99.0 102 28 164/75 100 04/21/17 19:00 Room Air 99 04/21/17 17:48 67 04/21/17 17:45 98.7 74 15 147/63 100 04/21/17 17:24 98.3 79 16 147/57 97 04/21/17 16:25 70 16 156/72 96 04/21/17 16:12 70 16 121/62 96 04/22/17 07:00 Intake Total 2735 ml Output Total 1650 ml Balance 1085 ml (Yani Ding) Review of Systems/Exam Exam Mr. Mehta is alert, oriented to time, place and person. Speech is fluent. Follows commands well. Cranial nerve examination: pupils 2-3 equal, round, and reactive to light. Extra -ocular movements are intact. Facial motor and sensory function are normal and symmetrical. Gross hearing is intact, bilaterally. The uvula is midline and elevates symmetrically with the soft palate. Neck is soft and supple. No meningismus or nuchal rigidity. Motor: moves both upper and lower extremities symmetrically Sensory examination is intact to light touch in both the upper and lower extremities, symmetrically. Deep tendon reflexes are 1+ and symmetrical in the biceps, triceps, and brachioradialis, bilaterally, in the upper extremities. In the lower extremities , the patellar and Achilles are 1+, bilaterally. There is a bilateral plantar flexion response. Hoffmanns sign is negative. Cerebellar examination is intact to [id number] test (Yani Ding) Medications Current Medications Current Medications Medications (Trade) Dose Ordered Sig/Jatin Route PRN Reason Start Time Stop Time Status Last Admin Dose Admin Sodium Chloride (NS 1000 ml Inj) 1,000 ml @ 84 mls/hr [id number] IV 04/21/17 14:30 04/22/17 02:30 Sodium Chloride (NS Flush) 2 ml UNSCH PRN IV FLUSH FLUSH AFTER USING IV ACCESS 04/21/17 14:00 Sodium Chloride (NS Flush) 2 ml BID IV FLUSH 04/21/17 21:00 04/21/17 21:47 Acetaminophen (Tylenol) 650 mg Q6H PRN PO PAIN 1-10 AND/OR FEVER >101F 04/21/17 14:00 Pantoprazole Sodium (Protonix Inj) 40 mg DAILY IV 04/22/17 09:00 04/22/17 08:48 Ondansetron HCl (Zofran Inj) 4 mg Q6H PRN IV NAUSEA OR VOMITING 04/21/17 14:00 Miscellaneous Information 1 [id number] XX 04/21/17 14:00 04/21/17 14:00 Chlorhexidine Gluconate (Chlorhexidine 2% Cloth) 3 pack Taper DAILY@04 TOP 04/22/17 04:00 04/18/18 03:59 04/22/17 02:30 Chlorhexidine Gluconate (Chlorhexidine 2% Cloth) 3 pack UNSCH PRN TOP HYGIENIC CARE 04/21/17 14:00 Senna/Docusate Sodium (Ashley-Colace) 1 tab BID PO 04/21/17 21:00 Magnesium Hydroxide (Milk Of Magnesia Liq) 30 ml Q12H PRN PO MILD - MODERATE CONSTIPATION 04/21/17 14:00 Sennosides (Senokot) 17.2 mg Q12H PRN PO MODERATE - SEVERE CONSTIPATION 04/21/17 14:00 Bisacodyl (Dulcolax Supp) 10 mg DAILY PRN RECTAL SEVERE CONSITIPATION 04/21/17 14:00 Lactulose 30 ml 30 ml DAILY PRN PO SEVERE CONSITIPATION 04/21/17 14:00 Nicardipine HCl/ Sodium Chloride (Cardene Inj/NS 250 ml Inj) 260 ml @ 0 mls/hr TITRATE IV 04/21/17 16:00 04/22/17 11:28 Insulin Aspart (NovoLOG SUPPLEMENTAL SCALE) 1 Q6HR SQ 04/21/17 18:00 04/21/17 23:48 Dextrose (D50w (Vial) Inj) 25 ml UNSCH PRN IV HYPOGLYCEMIA-SEE COMMENTS 04/21/17 14:15 Glucagon (Glucagon Inj) 1 mg UNSCH PRN IM/SQ HYPOGLYCEMIA-SEE COMMENTS 04/21/17 14:15 Labetalol HCl (Trandate Inj) 20 mg Q2HR PRN IV PUSH SBP greater than 180mm Hg 04/21/17 15:30 Hydrochlorothiazide (Hydrodiuril) 25 mg DAILY PO 04/21/17 18:00 04/22/17 08:49 Lisinopril (Prinivil) 20 mg DAILY PO 04/21/17 18:00 04/22/17 08:49 Amlodipine Besylate (Norvasc) 10 mg DAILY PO 04/22/17 09:00 04/22/17 08:49 (Yani Ding) Medical Decision Making MDM Remarks 47 y/o male presented with intractable headaches, improved MRI Brain showed right fontal paramidline mass, poss venous malformation or hemangioma CTA Head reports no aneurysm, but possible ASTHMA EDUCATOR lymphoma, glioblastoma (Yani Ding) Plan Plan Remarks dw pt regarding radiological findings consult oncology for evaluation, if recommended can obtain biopsy (Yani Ding) Attending Statement The exam, history, and the medical decision-making described in the above note were completed with the assistance of the mid-level provider. I reviewed and agree with the findings presented. I attest that I had a [id number] encounter with the patient on the same day, and personally performed and documented my assessment and findings in the medical record. (Miguelito Romero MD) Yani Ding Apr 22, 2017 13:05 Miguelito Romero MD Apr 22, 2017 20:28
--- NOTE | 2017-04-22 13:06 | HHI.CCPN ---
Subjective Remarks/Hospital Course 04/21: 47 yo M c/o R forehead cephalgia, gradual onset over 3 hours or so prior to coming to ER. 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 This morning he had 2 bowel movements, the prior was loose, as such the patient had no appetite, did not eat breakfast and did not take his lisinopril as he normally would every morning. HTN upon arrival noted. No LOC, numbness/tingling/ weakness. No neck stiffness. [place] quality is throbbing and of moderate severity. Patient had a systolic blood pressure in the 230s in the ER. He was initiated on a nicardipine drip. Head CT revealed hyperdense lesion in the frontal region pallor midline anterior to anterior horns of the lateral ventricles. MRI brain and CTA ordered for further evaluation and neurosurgery consult requested. Dr. Romero. Patient was accepted for admission by critical care medicine service. When I evaluated the patient in the ER he had just finished his MRI and CTA and was drowsy from Ativan and Benadryl which she had received earlier prior to imaging. He knew he was at the hospital and was following commands appropriately. He still had a headache that this was slightly better. He was on a nicardipine drip at that time at 15 mg/h with systolic blood pressure 160s. He denied any history of similar symptoms previously and stated that he is a known diabetic and hypertensive and is usually compliant with his meds and has a well-controlled blood pressure and fingerstick glucoses runs around 120s to 140s on metformin. 04/22: Sitting up in a chair comfortably. Denies any headache. Denies any focal weakness or visual disturbance. Denies any nausea. Tolerating by mouth diet. Objective Vital Signs Date Time Temp Pulse Resp B/P Pulse Ox O2 Delivery O2 Flow Rate FiO2 04/22/17 12:00 78 04/22/17 12:00 98.1 16 151/69 97 04/22/17 07:00 Room Air 04/21/17 19:00 99 Intake and Output 04/21/17 04/21/17 04/22/17 08:00 16:00 00:00 Intake Total 1147 ml Output Total 500 ml Balance 647 ml Result Diagram: 04/22/17 0520 04/22/17 0520 Imaging Last Impressions Head CTA 04/21/17 1316 Signed Impressions: Service Date/Time: Friday, April 21, 2017 14:17 - CONCLUSION: Negative CTA of the brain. Enhancing lesions involve the corpus callosum, dense white matter tracts, include glioblastoma anaplastic astrocytoma and primary WEED BURNER lymphoma. MS can give similar appearance but there are no other lesions in the brain to suggest this is the diagnosis. This is an unusual place for an isolated brain metastasis. Ry Preston MD FACR Head CT 04/21/17 0918 Signed Impressions: Service Date/Time: Friday, April 21, 2017 09:32 - CONCLUSION: 1. 1 cm rounded hyperdensity in the right para midline frontal region just anterior to the anterior horns of the lateral ventricles. 2. Differential diagnosis is extra-axial mass such as meningioma versus small cortical parenchymal hemorrhage or small extra axial hemorrhage. Recommend MRI brain with and without contrast for further evaluation. Johnny Hitchcock MD Chest X-Ray 04/21/17 0000 Signed Impressions: Service Date/Time: Friday, April 21, 2017 14:24 - CONCLUSION: 1. Hypoinflation with no acute infiltrate. 2. Borderline prominent but well compensated heart. Jas Chavarria MD Brain MRI 04/21/17 0000 Signed Impressions: Service Date/Time: Friday, April 21, 2017 11:45 - CONCLUSION: 1. Area of increased density on CT corresponds to a 8-9 mm nonenhancing lesion in the genu of the corpus callosum which does appear to contain a central vessel. This same lesion shows a ring of hemosiderin on the axial T2-weighted images with marked blooming artifact on the susceptibility weighted images characteristic of regional blood. Imaging characteristics are overtly benign and I would consider entities such as a cavernous angioma or other small vascular malformation. I believe a low-grade neoplasm or aneurysm is much less likely but I would recommend a CTA of the head to exclude the latter. 2. Otherwise, mild, scattered white matter changes. aJs Chavarria MD Objective Remarks Narrative GENERAL: male sitting up in a chair not in any acute distress. SKIN: Warm and dry. HEAD: Atraumatic. Normocephalic. EYES: No scleral icterus. No injection or drainage. Normal ROM with conjugate gaze. PERRL. ENT: No nasal bleeding or discharge. Mucous membranes pink and moist. NECK: Trachea midline. No JVD. CARDIOVASCULAR: Regular rate and rhythm. RESPIRATORY: No accessory muscle use. Clear to auscultation. Breath sounds equal bilaterally. GASTROINTESTINAL: Abdomen soft, non-tender, nondistended. Hepatic and splenic margins not palpable. MUSCULOSKELETAL: Extremities without clubbing, cyanosis, or edema. No obvious deformities. NEUROLOGICAL: Awake and alert. No obvious cranial nerve deficits. Motor grossly within normal limits. Five out of 5 muscle strength in the arms and legs. Normal speech. PSYCHIATRIC: Appropriate mood and affect; insight and judgment normal. A/P Assessment and Plan 47-year-old male with: Hypertensive emergency Intracranial lesion in the frontal area (mass) Diabetes mellitus Plan: Neuro: Neurosurgery has been consulted and patient has been evaluated by Dr. Romero. Further management for intracranial lesion per Dr. Romero. Continue neuro checks. Repeat head CT to follow up. Cardiovascular: On nicardipine drip. Labetalol when necessary added. Resumed by mouth lisinopril and add Norvasc 10 mg by mouth daily for better blood pressure control. Pulmonary: Supplemental O2 as needed. Bronchodilators when necessary GI/liver: Advance by mouth diet if okay with neurosurgery. We will resume by mouth meds. Renal/: Follow intake output, monitor and replete electro lites, follow BUN/ creatinine. IV hydration ID: No indication for antibiotics at this time. Heme-onc: Dr. Galan from [facility] on consulted by Dr. Romero to further evaluate intracranial mass. He is planning on imaging studies to look for primary source. Endocrine: SSI for glycemic control. Hold metformin in view of IV contrast exposure and nothing by mouth. Prophylaxis: PPI/SCDs. Subcutaneous heparin when okay with neurosurgery Discussed with ER physician, discussed with [facility]. Dennis Sosa MD Apr 22, 2017 13:06
[2017-04-22] MEDS ORDERED: IOHEXOL 350 MG/ML 10 ML VIAL (for RAD DIAG) IV ONE (15:10)
--- NOTE | 2017-04-22 16:03 | RADRPT ---
EXAM DATE/TIME: 04/22/2017 14:54 [facility] COMPARISON: CTA BRAIN W 3D RECON, April 21, 2017, 14:17. MRI BRAIN W & W/O CONTRAST, April 21, 2017, 11:45. CT B RAIN W/O CONTRAST, April 21, 2017, 9:32. INDICATIONS : Evaluate for metastatic disease. RADIATION DOSE: 56.35 CTDIvol (mGy) MEDICAL HISTORY : Hypertension. SURGICAL HISTORY : None. ENCOUNTER: Initial ACUITY: 2 days PAIN SCALE: 4/10 LOCATION: cranial TECHNIQUE: Multiple contiguous axial images were obtained of the head. Using automated exposure control and adj ustment of the mA and/or kV according to patient size, radiation dose was kept as low as reasonably a chievable to obtain optimal diagnostic quality images. FINDINGS: CEREBRUM: Oval 1.5 x 0.9 cm hyperdensity in the region of the anterior corpus callosum is unchanged in size fro m prior MRI and CT. No new hemorrhage or mass effect. POSTERIOR FOSSA: The cerebellum and brainstem are intact. The 4th ventricle is midline. The cerebellopontine angle i s unremarkable. EXTRACRANIAL: The visualized portion of the orbits is intact. SKULL: The calvaria is intact. No evidence of skull fracture. CONCLUSION: No significant change. Oval hyperdensity again seen in the region of the corpus callo sum anteriorly. Johnny Hitchcock MD on April 22, 2017 at 15:58 Board Certified Radiologist. This report was verified electronically.
--- NOTE | 2017-04-22 16:07 | RADRPT ---
EXAM DATE/TIME: 04/22/2017 14:59 [facility] COMPARISON: No previous studies available for comparison. INDICATIONS : Evaluate for metastatic disease. IV CONTRAST: 100 cc Omnipaque 350 (iohexol) IV ; Cumulative dose for multiple exams. RADIATION DOSE: 9.96 CTDIvol (mGy) ; Combined studies - Thorax/Abdomen/Pelvis MEDICAL HISTORY : Hypertension. SURGICAL HISTORY : None. ENCOUNTER: Initial ACUITY: 1 day PAIN SCALE: Non-responsive LOCATION: Bilateral chest TECHNIQUE: Volumetric scanning of the chest was performed. Using automated exposure control and adjustment of t he mA and/or kV according to patient size, radiation dose was kept as low as reasonably achievable to obtain optimal diagnostic quality images. FINDINGS: LUNGS: There is no consolidation or pneumothorax. No concerning pulmonary nodule is visualized. PLEURA: There is no pleural thickening or pleural effusion. MEDIASTINUM: The heart and great vessels demonstrate no acute abnormality. There is no mediastinal or hilar lymph adenopathy. AXILLAE: Within normal limits. No lymphadenopathy. SKELETAL: Within normal limits for patient age. MISCELLANEOUS: The visualized upper abdominal organs demonstrate no acute abnormality. CONCLUSION: No acute findings in the chest. Johnny Hitchcock MD on April 22, 2017 at 16:04 Board Certified Radiologist. This report was verified electronically.
--- NOTE | 2017-04-22 16:11 | RADRPT ---
EXAM DATE/TIME: 04/22/2017 14:59 [facility] COMPARISON: CT THORAX W CONTRAST, April 22, 2017, 14:59. INDICATIONS : Evaluate for metastatic disease. IV CONTRAST: 100 cc Omnipaque 350 (iohexol) IV ; Cumulative dose for multiple exams. ORAL CONTRAST: No oral contrast ingested. RADIATION DOSE: 9.96 CTDIvol (mGy) ; Combined studies - Thorax/Abdomen/Pelvis MEDICAL HISTORY : Hypertension. SURGICAL HISTORY : None. ENCOUNTER: Initial ACUITY: 1 day PAIN SCALE: Non-responsive LOCATION: Bilateral abdomen. TECHNIQUE: Volumetric scanning of the abdomen and pelvis was performed. Using automated exposure control and ad justment of the mA and/or kV according to patient size, radiation dose was kept as low as reasonably achievable to obtain optimal diagnostic quality images. FINDINGS: LOWER LUNGS: The visualized lower lungs are clear. LIVER: Diffuse hepatic steatosis. No focal mass identified. Gallbladder are within normal limits. SPLEEN: Normal size without lesion. PANCREAS: Within normal limits. KIDNEYS: 1.5 cm cyst in the lower pole of the left kidney. Kidneys otherwise within normal limits. ADRENAL GLANDS: Within normal limits. VASCULAR: There is no aortic aneurysm. BOWEL/MESENTERY: No evidence of bowel dilatation. No free air or free fluid. Appendix within normal limits. ABDOMINAL WALL: Within normal limits. RETROPERITONEUM: There is no lymphadenopathy. BLADDER: No wall thickening or mass. REPRODUCTIVE: Within normal limits. INGUINAL: There is no lymphadenopathy or hernia. MUSCULOSKELETAL: Degenerative findings of the lumbar spine and arthritic findings of the sacroiliac joints. CONCLUSION: Hepatic steatosis. No acute findings in the abdomen and pelvis. Johnny Hitchcock MD on April 22, 2017 at 16:05 Board Certified Radiologist. This report was verified electronically.
--- NOTE | 2017-04-22 16:42 | MB ---
cc: DANIEL CHOI MD, FEDERICO C. M.D. LATIF, ZAFAR MD DATE OF CONSULTATION: 04/22/2017 HEMATOLOGY/ONCOLOGY CONSULTATION NOTE PRIMARY CARE PHYSICIAN Dr. Daniel Choi. CONSULTATION REQUESTED BY Critical Care Service. REASON FOR CONSULTATION Intracranial brain mass identified on head imaging. The differential diagnosis includes primary malignancy of the brain versus metastatic disease to the brain. CHIEF COMPLAINT 1. Mr. Mehta reports having had a severe headache involving the right side of his head (unlike any headache he has previously had). It started hours prior to presentation to the hospital. 2. Elevated blood pressure. HISTORY OF PRESENT ILLNESS Mr. Mehta is a 47-year-old man with a history of high blood pressure and diabetes. Mr. 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 He had been helping to unload a delivery truck when he felt onset of a severe headache on the right side of the head, he also felt quite fatigued and weak. He stopped working at that time and went to rest however he felt no better after about an hour of rest. He therefore came in to the emergency department for further workup and evaluation. He reports he has symptoms of headaches and fatigue. His blood pressure on intake was noted to be 283/145 mmHg. He was admitted to the Critical Care Unit with hypertensive emergency. He has been initiated on nicardipine drip as well as resumed on his oral antihypertensives. Imaging studies of the head were performed on 04/21/2017 and MRI of the brain indicated an area of increased density corresponding to a 9 mm nonenhancing lesion in the genu of the corpus callosum. A central vessel was apparent within the lesion. This lesion was subsequently worked up with a head CT scan as well as CT angiogram and imaging findings were quite nonspecific, the enhancing lesion was confirmed again in the corpus callosum. Differential diagnosis includes AV malforation, glioblastoma or STEAM TABLE ATTENDANT lymphoma. The patient has been evaluated by Neurosurgery who have asked for Oncology to evaluate the patient as well. Subjectively at this time Mr. Mehta reports feeling improved as far as his headaches are concerned. His blood pressure is now much closer to normal range. PAST MEDICAL HISTORY 1. Hypertension. 2. Diabetes. 3. Obesity. 4. Obstructive sleep apnea. PAST SURGICAL HISTORY None. FAMILY HISTORY Parents are both , they of myocardial infarctions. Sister has a history of throat cancer, she was a smoker. SOCIAL HISTORY The patient lives at home with his tosha james. He reports having had secondhand smoke exposure in his life but he has never smoked himself. He drinks only occasionally. He has one adult daughter. He currently works as a cook at a local restaurant. ALLERGIES NO KNOWN DRUG ALLERGIES. MEDICATIONS Current inpatient medications: 1. Nicardipine drip titrate per protocol. 2. Tylenol 650 mg p.o. q.6 hours as needed for pain. 3. Albuterol/ipratropium one ampule inhaled q.2 hours. 4. Amlodipine 10 mg p.o. daily. 5. Ashley-Colace one tablet p.o. b.i.d. 6. Hydrochlorothiazide 25 mg p.o. daily. 7. Insulin sliding scale every 6 hours per protocol. 8. Labetalol 20 mg IV every 2 hours as needed for uncontrolled hypertension. 9. Lisinopril 20 mg p.o. daily. 10. Milk of Magnesia 13 ounces p.o. q.12 hours. 11. Zofran 4 mg IV q.6 hours as needed for nausea and vomiting. 12. Pantoprazole 40 mcg IV daily. REVIEW OF SYSTEMS A 13-point review of systems were obtained, the following are the pertinent positives and negatives: CONSTITUTIONAL: The patient reports fatigue and weakness. He reports no fevers or chills. Denies weight loss and reports a good appetite. HEENT: Please see HPI, he did have a headache. Denies blurry vision but does report having had redness of his eyes and what he felt to be swelling of his eyes as well. He denies difficulty swallowing or soreness in the throat. RESPIRATORY: Denies difficulty breathing. Denies cough or hemoptysis. Denies pleuritic chest pain. CARDIOVASCULAR: Denies angina-like chest pain, PND or orthopnea. GI: Denies nausea, vomiting, diarrhea, hematochezia or melena. He denies changes in stool caliber. UG: Denies dysuria, hematuria or urinary incontinence. STEAM TABLE ATTENDANT: Denies any focal sensory or motor deficits. SKIN: No complaints. PHYSICAL EXAMINATION VITAL SIGNS: Temperature 98.1 degrees Fahrenheit, heart rate 78 beats per minute, blood pressure is 151/69, O2 sats are 97% on room air, respiratory rate is 16 breaths per minute. GENERAL PHYSICAL APPEARANCE: Mr. Mehta is a middle-aged male, he is tall, obese, sitting up on a chair. He appears to be in no acute distress. HEENT: Head is atraumatic, normocephalic. Conjunctivae are hyperemic, nonicteric. Oral exam - no pharyngeal erythema. NECK EXAM: No palpable cervical or supraclavicular lymphadenopathy. RESPIRATORY EXAM: Good air movement bilaterally, no added breath sounds. CARDIOVASCULAR EXAM: Regular rate and rhythm. S1, S2. No obvious murmurs, rubs or gallops. ABDOMINAL EXAM: Obese belly, soft, no tenderness noted. No palpable organ enlargement specifically no hepatosplenomegaly. LOWER EXTREMITIES: No pretibial edema. No calf tenderness. STEAM TABLE ATTENDANT: No focal sensory or motor deficits. LABORATORY FINDINGS Blood work dated 04/22/2017: Sodium 136, potassium 3.7, chloride 100, bicarbonate 28.4, BUN 16, creatinine 1.04, EGFR 92, random glucose 150, calcium 8.5, total bilirubin 0.4, AST 16, ALT 33, alkaline phosphatase 64, albumin 3. CBC: WBC count 9.2, hemoglobin 12.1 g/dL, hematocrit 37.2%, platelet count 305, absolute neutrophil count is 6. IMAGING STUDIES MRI of the brain dated 04/21/2017: CONCLUSION: 1. Area of increased density on the CT scan corresponding to an 8-9 mm nonenhancing lesion in the genu of the corpus callosum which does appear to contain a central vessel. This same lesion shows a range of hemosiderin on the axial T2-weighted imaging with marked blooming artifact on the susceptibility weighted imaging characteristic of regional blood. Imaging characteristics are overtly benign and I would consider entities such as cavernous angioma or other small vascular malformation. I believe a low grade neoplasm or aneurysm is much less likely but I would recommend CT angiogram of the head to exclude the latter. CT angiogram of the head dated 04/21/2017: 1. Negative CTA of the brain. Enhancing lesion involving the corpus callosum, dense white matter tracts. Differential includes glioblastoma, astrocytoma, primary STEAM TABLE ATTENDANT lymphoma, multiple sclerosis can also give a similar appearance. No other lesions within the brain are identified. ASSESSMENT Mr. Mehta is a 47-year-old man who came in to the emergency department yesterday with complaints of severe headache, generalized weakness and fatigue. He was noted to have a blood pressure of 280 mmHg/145 mmHg at presentation. He was admitted to the Critical Care Unit for a hypertensive emergency and his blood pressure has been titrated down to close to normal range. Imaging studies of the head were performed to evaluate his symptoms of headache and he was noted to have a 9 mm nonspecific lesion involving the anterior portion of the corpus callosum. The Oncology service has been asked to see him because the differential diagnosis for this lesion includes primary STEAM TABLE ATTENDANT lymphoma, primary brain neoplasm such as glioblastoma as well as astrocytomas. The patient has been evaluated by Neurosurgery as well and he has been offered various options including observation with repeat scans in three months versus an open biopsy to definitively evaluate the lesion. RECOMMENDATIONS 1. I would at this point like to obtain CT imaging of the chest, abdomen and pelvis to evaluate for a primary site in the thorax, abdomen or pelvis. I will also defer to Neurosurgery regarding the urgency of a biopsy needed or whether a biopsy is needed at all. I would be happy to see the patient whenever we do have a tissue confirmation of a malignancy to plan further workup and management. I did explain the various approaches to the patient and his fianc e and explained to them that the lesion that we have identified in the corpus callosum may in fact be an incidental finding, his symptoms of headaches may have been related to his extremely high blood pressure when he came in. Also, I explained to them that the lesion that we have seen may in fact represent an AV malformation or even a malignant lesion. If this is a malignant lesion, an open biopsy would be required to prove that and that would require craniotomy with accurate localization and excision. I will defer further discussions regarding biopsy to the neurosurgeons. MD JAMEEL Shepard/BARRY /1:07 PM /3:43 PM
[2017-04-23] VITALS (11 sets, daily range): BP systolic 145–178; BP diastolic 52–92; PULSE 62–98; RESP 15–31; TEMP 97.6–98.3; O2SAT 97–100
[2017-04-23] MEDS: CHLORHEXIDINE GLUCONATE 2 % 1 PACK (2 CLOTHS) TOP SCH (03:50)
[2017-04-23] MEDS: INSULIN ASPART SUPPLEMENTAL SCALE SQ SCH ×4 (06:00→18:00)
[2017-04-23] MEDS: PANTOPRAZOLE SODIUM 40 MG VIAL IV SCH (08:44)
[2017-04-23] MEDS: HYDROCHLOROTHIAZIDE 25 MG TAB PO SCH (08:44)
[2017-04-23] MEDS: DOCUSATE SODIUM 50 MG/SENNA 8.6 MG TAB PO SCH ×2 (08:45→21:00)
[2017-04-23] MEDS: LISINOPRIL 20 MG TAB PO SCH (08:45)
[2017-04-23] MEDS: SODIUM CHLORIDE 0.9% FLUSH 10 ML FLUSH IV FLUSH SCH ×2 (08:45→21:00)
--- NOTE | 2017-04-23 10:03 | PD.ONC.PN ---
Subjective Subjective Remarks Afebrile overnight. "I feel much better" Denies headache or chest pain. OK for plan to wait 2-3 months and repeat MRI. Objective Data Date Time Temp Pulse Resp B/P Pulse Ox O2 Delivery O2 Flow Rate FiO2 04/23/17 07:51 99 21 04/23/17 07:00 100 Room Air 04/23/17 06:00 64 04/23/17 04:00 97.6 62 17 157/52 99 04/23/17 04:00 62 04/23/17 02:00 82 04/23/17 00:00 98.3 82 15 145/65 98 04/23/17 00:00 68 04/22/17 22:00 86 04/22/17 20:00 98.7 82 24 145/70 99 04/22/17 20:00 82 04/22/17 19:00 100 Room Air 04/22/17 18:00 98 04/22/17 16:00 76 04/22/17 16:00 98.5 76 16 145/67 97 04/22/17 14:00 78 04/22/17 12:00 78 04/22/17 12:00 98.1 78 16 151/69 97 04/22/17 10:00 74 04/23/17 04/23/17 04/23/17 07:00 15:00 23:00 Intake Total 240 ml Output Total 1000 ml Balance -760 ml Result Diagram: 04/22/17 0520 04/22/17 0520 Imaging Studies Last [address] 04/22/17 0000 Signed Impressions: Service Date/Time: Saturday, April 22, 2017 14:54 - CONCLUSION: No significant change. Oval hyperdensity again seen in the region of the corpus callosum anteriorly. Johnny Hitchcock MD Chest CT 04/22/17 0000 Signed Impressions: Service Date/Time: Saturday, April 22, 2017 14:59 - CONCLUSION: No acute findings in the chest. Johnny Hitchcock MD Abdomen/Pelvis CT 04/22/17 0000 Signed Impressions: Service Date/Time: Saturday, April 22, 2017 14:59 - CONCLUSION: Hepatic steatosis. No acute findings in the abdomen and pelvis. Johnny Hitchcock MD Head CTA 04/21/17 1316 Signed Impressions: Service Date/Time: Friday, April 21, 2017 14:17 - CONCLUSION: Negative CTA of the brain. Enhancing lesions involve the corpus callosum, dense white matter tracts, include glioblastoma anaplastic astrocytoma and primary PELLET MACHINE OPERATOR lymphoma. MS can give similar appearance but there are no other lesions in the brain to suggest this is the diagnosis. This is an unusual place for an isolated brain metastasis. Ry Preston MD FACR Administered Medications Medications (Trade) Dose Ordered Sig/Jatin Route PRN Reason Start Time Stop Time Status Last Admin Dose Admin Sodium Chloride (NS Flush) 2 ml BID IV FLUSH 04/21/17 21:00 04/23/17 08:45 Acetaminophen (Tylenol) 650 mg Q6H PRN PO PAIN 1-10 AND/OR FEVER >101F 04/21/17 14:00 04/22/17 19:47 Pantoprazole Sodium (Protonix Inj) 40 mg DAILY IV 04/22/17 09:00 04/23/17 08:44 Miscellaneous Information 1 Q361D XX 04/21/17 14:00 04/21/17 14:00 Chlorhexidine Gluconate 3 pack 3 pack Taper DAILY@04 TOP 04/22/17 04:00 04/18/18 03:59 04/23/17 03:50 Nicardipine HCl/ Sodium Chloride (Cardene Inj/NS 250 ml Inj) 260 ml @ 0 mls/hr TITRATE IV 04/21/17 16:00 04/22/17 11:28 Insulin Aspart (NovoLOG SUPPLEMENTAL SCALE) 1 Q6HR SQ 04/21/17 18:00 04/23/17 06:00 Hydrochlorothiazide (Hydrodiuril) 25 mg DAILY PO 04/21/17 18:00 04/23/17 08:44 Lisinopril (Prinivil) 20 mg DAILY PO 04/21/17 18:00 04/23/17 08:45 Amlodipine Besylate (Norvasc) 10 mg DAILY PO 04/22/17 09:00 04/23/17 08:45 Objective Remarks GENERAL: Overweight middle aged male, sitting up in chair at bedside in no distress. He is in good spirits, watching TV with visitor present. SKIN: Warm and dry. HEAD: Normocephalic. EYES: No injection or drainage. NECK: Supple, trachea midline. CARDIOVASCULAR: +S1/S2. RESPIRATORY: Lungs clear to auscultation. Breathing unlabored. GASTROINTESTINAL: Abdomen soft, non-tender, nondistended. EXTREMITIES: No cyanosis. SCD's to BLE. NEUROLOGICAL: A&Ox3. 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 Follows all commands. Normal speech. Assessment/Plan Problem List: (1) Intracranial mass Status: Acute Plan: --MRI showed a 9mm nonenhancing lesion in the genu of the corpus callosum -- Differential incl AV malformation, glioblastoma, or PELLET MACHINE OPERATOR lymphoma. -- CT Chest, Abdomen and Pelvis negative for malignancy. Hx/Workup: Mr Mehta came to the ER with intense headache and was admitted to ICU for hypertensive crisis. Imaging scans on admission showed a lesion in the corpus callosum. Assessment 47 y/o male who presented to the ER with headache and was found to have a lesion in the corpus callosum suspicious for possible malignancy. Plan 1. Pt feeling much better. Hypertension improved. Off Nifedipine gtt. 2. Plan to repeat MRI in 2-3 months. The lesion would be dangerous to biopsy as it is in a central location with in the brain. 3. Discussed with Dr Romero. Attending Statement The exam, history, and the medical decision-making described in the above note were completed with the assistance of the mid-level provider. I reviewed and agree with the findings presented. I attest that I had a [id number] encounter with the patient on the same day, and personally performed and documented my assessment and findings in the medical record. Patient seen and examined, imaging studies ordered yesterday were reviewed; he has no evidence of malignancy in the thorax, abdomen or pelvis. His blood pressure is now closer to normal and his headaches have completely resolved. He has been up out of bed and has walk without assistance and is awaiting transfer out of the critical care unit. I did talk to the patient about his CT scans and explained that there is no evidence to suggest a primary malignancy in the abdomen or pelvis or thorax. I have provided him my office phone number for him to call us should there be any changes on his head scans. Currently the plan is for him to have repeat MRI of the brain in 3 months and follow-up with Dr. Romero in 3 months. Patient is cleared for discharge from an oncology standpoint. Myra Rosado Apr 23, 2017 10:03 Doron Jimenez MD Apr 23, 2017 12:05
[2017-04-23] MEDS ORDERED: LISINOPRIL 20 MG TAB PO ONE (11:00)
--- NOTE | 2017-04-23 11:01 | HHI.CCPN ---
Subjective Remarks/Hospital Course 04/21: 47 yo M c/o R forehead cephalgia, gradual onset over 3 hours or so prior to coming to ER. 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 This morning he had 2 bowel movements, the prior was loose, as such the patient had no appetite, did not eat breakfast and did not take his lisinopril as he normally would every morning. HTN upon arrival noted. No LOC, numbness/tingling/ weakness. No neck stiffness. [place] quality is throbbing and of moderate severity. Patient had a systolic blood pressure in the 230s in the ER. He was initiated on a nicardipine drip. Head CT revealed hyperdense lesion in the frontal region pallor midline anterior to anterior horns of the lateral ventricles. MRI brain and CTA ordered for further evaluation and neurosurgery consult requested. Dr. Romero. Patient was accepted for admission by critical care medicine service. When I evaluated the patient in the ER he had just finished his MRI and CTA and was drowsy from Ativan and Benadryl which she had received earlier prior to imaging. He knew he was at the hospital and was following commands appropriately. He still had a headache that this was slightly better. He was on a nicardipine drip at that time at 15 mg/h with systolic blood pressure 160s. He denied any history of similar symptoms previously and stated that he is a known diabetic and hypertensive and is usually compliant with his meds and has a well-controlled blood pressure and fingerstick glucoses runs around 120s to 140s on metformin. 04/22: Sitting up in a chair comfortably. Denies any headache. Denies any focal weakness or visual disturbance. Denies any nausea. Tolerating by mouth diet. 04/23: Sitting up in chair. Appears comfortable. Denies any headache. Off nicardipine drip since yesterday afternoon. Systolic blood pressure 160s. Patient tells me that he had doubled his lisinopril at home for a few days on his own. CT chest and CT abdomen pelvis unremarkable. Objective Vital Signs Date Time Temp Pulse Resp B/P Pulse Ox O2 Delivery O2 Flow Rate FiO2 04/23/17 10:00 72 04/23/17 07:51 99 21 04/23/17 07:00 Room Air 04/23/17 04:00 97.6 17 157/52 Intake and Output 04/22/17 04/22/17 04/23/17 08:00 16:00 00:00 Intake Total 1588 ml 1367 ml 733 ml Output Total 1150 ml 1000 ml 350 ml Balance 438 ml 367 ml 383 ml Result Diagram: 04/22/17 0520 04/22/17 0520 Imaging Last Impressions Head CTA 04/21/17 1316 Signed Impressions: Service Date/Time: Friday, April 21, 2017 14:17 - CONCLUSION: Negative CTA of the brain. Enhancing lesions involve the corpus callosum, dense white matter tracts, include glioblastoma anaplastic astrocytoma and primary UROGYNAECOLOGIST lymphoma. MS can give similar appearance but there are no other lesions in the brain to suggest this is the diagnosis. This is an unusual place for an isolated brain metastasis. Ry Preston MD FACR Head CT 04/21/17 0918 Signed Impressions: Service Date/Time: Friday, April 21, 2017 09:32 - CONCLUSION: 1. 1 cm rounded hyperdensity in the right para midline frontal region just anterior to the anterior horns of the lateral ventricles. 2. Differential diagnosis is extra-axial mass such as meningioma versus small cortical parenchymal hemorrhage or small extra axial hemorrhage. Recommend MRI brain with and without contrast for further evaluation. Johnny Hitchcock MD Chest X-Ray 04/21/17 0000 Signed Impressions: Service Date/Time: Friday, April 21, 2017 14:24 - CONCLUSION: 1. Hypoinflation with no acute infiltrate. 2. Borderline prominent but well compensated heart. Jas Chavarria MD Brain MRI 04/21/17 0000 Signed Impressions: Service Date/Time: Friday, April 21, 2017 11:45 - CONCLUSION: 1. Area of increased density on CT corresponds to a 8-9 mm nonenhancing lesion in the genu of the corpus callosum which does appear to contain a central vessel. This same lesion shows a ring of hemosiderin on the axial T2-weighted images with marked blooming artifact on the susceptibility weighted images characteristic of regional blood. Imaging characteristics are overtly benign and I would consider entities such as a cavernous angioma or other small vascular malformation. I believe a low-grade neoplasm or aneurysm is much less likely but I would recommend a CTA of the head to exclude the latter. 2. Otherwise, mild, scattered white matter changes. Jas Chavarria MD Objective Remarks Narrative GENERAL: male sitting up in a chair not in any acute distress. SKIN: Warm and dry. HEAD: Atraumatic. Normocephalic. EYES: No scleral icterus. No injection or drainage. Normal ROM with conjugate gaze. PERRL. ENT: No nasal bleeding or discharge. Mucous membranes pink and moist. NECK: Trachea midline. No JVD. CARDIOVASCULAR: Regular rate and rhythm. RESPIRATORY: No accessory muscle use. Clear to auscultation. Breath sounds equal bilaterally. GASTROINTESTINAL: Abdomen soft, non-tender, nondistended. Hepatic and splenic margins not palpable. MUSCULOSKELETAL: Extremities without clubbing, cyanosis, or edema. No obvious deformities. NEUROLOGICAL: Awake and alert. No obvious cranial nerve deficits. Motor grossly within normal limits. Five out of 5 muscle strength in the arms and legs. Normal speech. PSYCHIATRIC: Appropriate mood and affect; insight and judgment normal. A/P Assessment and Plan 47-year-old male with: Hypertensive emergency Intracranial lesion in the frontal area (mass) Diabetes mellitus Left sided sciatica Plan: Neuro: Neurosurgery has been consulted and patient has been evaluated by Dr. Romero. Further management for intracranial lesion per Dr. Romero. Continue neuro checks. Discussed with neurosurgery Dr. Romero. He wants a repeat MRI brain in 3 months, no intervention at this time. Ordered physical therapy for back strengthening exercises for left-sided sciatica and low back pain. Cardiovascular: Off nicardipine drip. Labetalol when necessary added. Resumed by mouth lisinopril and add Norvasc 10 mg by mouth daily for better blood pressure control. Lisinopril dose increased to 40 mg daily on 04/23. Pulmonary: Supplemental O2 as needed. Bronchodilators when necessary GI/liver: Advance by mouth diet Renal/: Follow intake output, monitor and replete electro lites, follow BUN/ creatinine. IV hydration ID: No indication for antibiotics at this time. Heme-onc: Dr. Jimenez from heme on consulted by Dr. Romero to further evaluate intracranial mass. CT chest abdomen pelvis unremarkable. Endocrine: SSI for glycemic control. Hold metformin in view of IV contrast exposure. Resume metformin on discharge Prophylaxis: PPI/SCDs. Subcutaneous heparin when okay with neurosurgery Discussed with Dr. Romero, discussed with Dr. Jimenez. Patient will be transferred out of ICU. Probable discharge tomorrow. Consult and transfer to hospitalist service for further medical management. Critical care signing off at this time, please reconsult if needed. Dennis Sosa MD Apr 23, 2017 11:01
--- NOTE | 2017-04-23 12:51 | HHI.NSPN ---
(Yani Ding) Note Status Status: Progress Note (Yani Ding) Interval History Interval History Mr. Mehta is a 47-year-old male who presents to [facility] ED today with complaints of headaches. The history was obtained with the aid of his at bedside as the patient received pain medication and is drowsy. His reports the patient had complained of headaches located behind the right eye this morning. It was severe enough that he presented to the ED for further evaluation. 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 An MRI of brain was obtained which showed a mass in the right paramidline frontal possible vascular malformation versus cavernous angioma. The patient denies focal weakness, double vision, seizures, nausea, vomiting. He reports no personal history of aneurysm, tumors or cancers. A neurosurgical evaluation was requested. 04/22: headaches resolved, denies focal weakness, vomiting, seizures, vision changes 04/23: stable overnight, Oncology evaluation noted. (Yani Ding) Labs, Micro, & Vital Signs Results Date Time Temp Pulse Resp B/P Pulse Ox O2 Delivery O2 Flow Rate FiO2 04/23/17 12:00 98.1 81 17 176/91 99 04/23/17 12:00 81 04/23/17 10:00 72 04/23/17 08:00 66 04/23/17 08:00 97.6 68 17 162/81 97 04/23/17 07:51 99 21 04/23/17 07:00 100 Room Air 04/23/17 06:00 64 04/23/17 04:00 97.6 62 17 157/52 99 04/23/17 04:00 62 04/23/17 02:00 82 04/23/17 00:00 98.3 82 15 145/65 98 04/23/17 00:00 68 04/22/17 22:00 86 04/22/17 20:00 98.7 82 24 145/70 99 04/22/17 20:00 82 04/22/17 19:00 100 Room Air 04/22/17 18:00 98 04/22/17 16:00 76 04/22/17 16:00 98.5 76 16 145/67 97 04/22/17 14:00 78 04/23/17 07:00 Intake Total 2340 ml Output Total 2350 ml Balance -10 ml Constitutional Vital Signs Date Time Temp Pulse Resp B/P Pulse Ox O2 Delivery O2 Flow Rate FiO2 04/23/17 12:00 98.1 81 17 176/91 99 04/23/17 12:00 81 04/23/17 10:00 72 04/23/17 08:00 66 04/23/17 08:00 97.6 68 17 162/81 97 04/23/17 07:51 99 21 04/23/17 07:00 100 Room Air 04/23/17 06:00 64 04/23/17 04:00 97.6 62 17 157/52 99 04/23/17 04:00 62 04/23/17 02:00 82 04/23/17 00:00 98.3 82 15 145/65 98 04/23/17 00:00 68 04/22/17 22:00 86 04/22/17 20:00 98.7 82 24 145/70 99 04/22/17 20:00 82 04/22/17 19:00 100 Room Air 04/22/17 18:00 98 04/22/17 16:00 76 04/22/17 16:00 98.5 76 16 145/67 97 04/22/17 14:00 78 04/23/17 07:00 Intake Total 2340 ml Output Total 2350 ml Balance -10 ml (Yani Ding) Review of Systems/Exam Exam Mr. Mehta is alert, oriented to time, place and person. Speech is fluent. Follows commands well. Sitting up in chair. Cranial nerve examination: pupils 2-3 equal, round, and reactive to light. Extra -ocular movements are intact. Facial motor and sensory function are normal and symmetrical. Neck is soft and supple. No meningismus or nuchal rigidity. Motor: moves both upper and lower extremities symmetrically Sensory examination is intact to light touch in both the upper and lower extremities, symmetrically. Cerebellar examination is intact to [id number] test (Yani Ding) Medications Current Medications Current Medications Medications (Trade) Dose Ordered Sig/Jatin Route PRN Reason Start Time Stop Time Status Last Admin Dose Admin Sodium Chloride (NS Flush) 2 ml UNSCH PRN IV FLUSH FLUSH AFTER USING IV ACCESS 04/21/17 14:00 Sodium Chloride (NS Flush) 2 ml BID IV FLUSH 04/21/17 21:00 04/23/17 08:45 Acetaminophen (Tylenol) 650 mg Q6H PRN PO PAIN 1-10 AND/OR FEVER >101F 04/21/17 14:00 04/22/17 19:47 Pantoprazole Sodium (Protonix Inj) 40 mg DAILY IV 04/22/17 09:00 04/23/17 08:44 Ondansetron HCl (Zofran Inj) 4 mg Q6H PRN IV NAUSEA OR VOMITING 04/21/17 14:00 Miscellaneous Information 1 Q361D XX 04/21/17 14:00 04/21/17 14:00 Chlorhexidine Gluconate (Chlorhexidine 2% Cloth) 3 pack Taper DAILY@04 TOP 04/22/17 04:00 04/18/18 03:59 04/23/17 03:50 Chlorhexidine Gluconate (Chlorhexidine 2% Cloth) 3 pack UNSCH PRN TOP HYGIENIC CARE 04/21/17 14:00 Senna/Docusate Sodium (Ashley-Colace) 1 tab BID PO 04/21/17 21:00 Magnesium Hydroxide (Milk Of Magnesia Liq) 30 ml Q12H PRN PO MILD - MODERATE CONSTIPATION 04/21/17 14:00 Sennosides (Senokot) 17.2 mg Q12H PRN PO MODERATE - SEVERE CONSTIPATION 04/21/17 14:00 Bisacodyl (Dulcolax Supp) 10 mg DAILY PRN RECTAL SEVERE CONSITIPATION 04/21/17 14:00 Lactulose (Lactulose Liq) 30 ml DAILY PRN PO SEVERE CONSITIPATION 04/21/17 14:00 Insulin Aspart (NovoLOG SUPPLEMENTAL SCALE) 1 Q6HR SQ 04/21/17 18:00 04/23/17 11:56 Dextrose (D50w (Vial) Inj) 25 ml UNSCH PRN IV HYPOGLYCEMIA-SEE COMMENTS 04/21/17 14:15 Glucagon (Glucagon Inj) 1 mg UNSCH PRN IM/SQ HYPOGLYCEMIA-SEE COMMENTS 04/21/17 14:15 Hydrochlorothiazide (Hydrodiuril) 25 mg DAILY PO 04/21/17 18:00 04/23/17 08:44 Amlodipine Besylate (Norvasc) 10 mg DAILY PO 04/22/17 09:00 04/23/17 08:45 Lisinopril (Prinivil) 40 mg DAILY PO 04/24/17 09:00 (Yani Ding) Medical Decision Making MDM Remarks 47 y/o male presented with intractable headaches, improved MRI Brain showed right fontal paramidline mass, poss venous malformation or hemangioma CTA Head reports no aneurysm, but possible REPEAT CHIEF lymphoma, glioblastoma (Yani Ding) Plan Plan Remarks discussed with patient treatment options of brain biopsy vs watching with repeat MRI in 3 months pt requests nonsurgical mgt for now repeat MRI Brain w/wo contrast in 3 months and f/u outpatient (Yani Ding) Attending Statement The exam, history, and the medical decision-making described in the above note were completed with the assistance of the mid-level provider. I reviewed and agree with the findings presented. I attest that I had a [id number] encounter with the patient on the same day, and personally performed and documented my assessment and findings in the medical record. (Miguelito Romero MD) Yani Ding Apr 23, 2017 12:51 Miguelito Romero MD Apr 23, 2017 18:32
[2017-04-24 00:30] VITALS: BP 165/80; PULSE 72; RESP 18; TEMP 98; O2SAT 98
[2017-04-24] MEDS: CHLORHEXIDINE GLUCONATE 2 % 1 PACK (2 CLOTHS) TOP SCH (04:00)
[2017-04-24 05:45] VITALS: BP 154/81; PULSE 75; RESP 19; TEMP 98; O2SAT 98
[2017-04-24] MEDS: INSULIN ASPART SUPPLEMENTAL SCALE SQ SCH ×5 (06:00→21:41)
[2017-04-24 08:00] VITALS: BP 168/81; PULSE 65; RESP 18; TEMP 97.7; O2SAT 97
[2017-04-24] MEDS ORDERED: LISINOPRIL 20 MG TAB PO SCH (09:00)
[2017-04-24] MEDS: DOCUSATE SODIUM 50 MG/SENNA 8.6 MG TAB PO SCH ×2 (09:00→21:00)
[2017-04-24] MEDS: SODIUM CHLORIDE 0.9% FLUSH 10 ML FLUSH IV FLUSH SCH ×2 (09:10→21:22)
[2017-04-24] MEDS: PANTOPRAZOLE SODIUM 40 MG VIAL IV SCH (09:10)
[2017-04-24] MEDS: HYDROCHLOROTHIAZIDE 25 MG TAB PO SCH (09:15)
[2017-04-24 12:32] VITALS: BP 155/78; PULSE 67; RESP 18; TEMP 97.1; O2SAT 99
--- NOTE | 2017-04-24 14:08 | HHI.PR ---
Subjective Remarks No new complaints. Pt reports that his headache has improved. Blood pressure is still running high with systolic in the 150-160s Objective Vitals Vital Signs Date Time Temp Pulse Resp B/P Pulse Ox O2 Delivery O2 Flow Rate FiO2 04/24/17 12:32 97.1 67 18 155/78 99 04/24/17 08:56 21 04/24/17 08:00 97.7 65 18 168/81 97 04/24/17 05:45 98.0 75 19 154/81 98 04/24/17 00:30 98.0 72 18 165/80 98 04/23/17 21:15 98.3 75 16 156/75 98 04/23/17 16:00 98.3 98 31 178/92 100 04/23/17 16:00 98 04/23/17 14:00 92 04/23/17 04/23/17 04/24/17 15:00 23:00 07:00 Intake Total 840 ml 1040 ml 800 ml Output Total 575 ml Balance 265 ml 1040 ml 800 ml Intake Oral 840 ml 1040 ml 800 ml Output Urine Total 575 ml # Voids 5 1 2 # Bowel Movements 2 1 0 Result Diagram: 04/22/17 0520 04/22/17 0520 Imaging Last Impressions Head CT 04/22/17 0000 Signed Impressions: Service Date/Time: Saturday, April 22, 2017 14:54 - CONCLUSION: No significant change. Oval hyperdensity again seen in the region of the corpus callosum anteriorly. Johnny Hitchcock MD Chest CT 04/22/17 0000 Signed Impressions: Service Date/Time: Saturday, April 22, 2017 14:59 - CONCLUSION: No acute findings in the chest. Johnny Hitchcock MD Abdomen/Pelvis CT 04/22/17 0000 Signed Impressions: Service Date/Time: Saturday, April 22, 2017 14:59 - CONCLUSION: Hepatic steatosis. No acute findings in the abdomen and pelvis. Johnny Hitchcock MD Head CTA 04/21/17 1316 Signed Impressions: Service Date/Time: Friday, April 21, 2017 14:17 - CONCLUSION: Negative CTA of the brain. Enhancing lesions involve the corpus callosum, dense white matter tracts, include glioblastoma anaplastic astrocytoma and primary DEPUTY MANAGER lymphoma. MS can give similar appearance but there are no other lesions in the brain to suggest this is the diagnosis. This is an unusual place for an isolated brain metastasis. Ry Preston MD FACR Neck CTA 04/21/17 0000 Signed Impressions: Service Date/Time: Friday, April 21, 2017 14:17 - CONCLUSION: 1. Very mild calcified plaque involving the origin of the internal carotid arteries bilaterally resulting in mild, less than 50%%, stenosis. 2. Otherwise, unremarkable CTA examination of the neck. Garrett Romero MD Chest X-Ray 04/21/17 0000 Signed Impressions: Service Date/Time: Friday, April 21, 2017 14:24 - CONCLUSION: 1. Hypoinflation with no acute infiltrate. 2. Borderline prominent but well compensated heart. Jas Chavarria MD Brain MRI 04/21/17 0000 Signed Impressions: Service Date/Time: Friday, April 21, 2017 11:45 - CONCLUSION: 1. Area of increased density on CT corresponds to a 8-9 mm nonenhancing lesion in the genu of the corpus callosum which does appear to contain a central vessel. This same lesion shows a ring of hemosiderin on the axial T2-weighted images with marked blooming artifact on the susceptibility weighted images characteristic of regional blood. Imaging characteristics are overtly benign and I would consider entities such as a cavernous angioma or other small vascular malformation. I believe a low-grade neoplasm or aneurysm is much less likely but I would recommend a CTA of the head to exclude the latter. 2. Otherwise, mild, scattered white matter changes. Jas Chavarria MD Objective Remarks General: NAD, AAOx3 Chest: CTA bilaterally Cardiac: Regular Abd: +BS, soft ND/NT Ext: No edema A/P Problem List: (1) Headache Status: Acute Plan: - Pt is a 47 y/o male who was admitted on 04/21/17 with complaints of acute right forehead cephalgia. - The pt had a systolic blood pressure in the 230s in the ER and was initiated on a nicardipine drip. - [place] [facility] [place]. - Head CT (04/21/17) --> Hyperdense lesion in the frontal region pallor midline anterior to anterior horns of the lateral ventricles. - MRI brain (04/21/17) --> Area of increased density on CT corresponds to a 8-9 mm nonenhancing lesion in the genu of the corpus callosum which does appear to contain a central vessel. This same lesion shows a ring of hemosiderin on the axial T2-weighted images with marked blooming artifact on the susceptibility weighted images characteristic of regional blood. Imaging characteristics are overtly benign and I would consider entities such as a cavernous angioma or other small vascular malformation. - CTA Brain (04/21) --> Negative CTA of the brain. Enhancing lesions involve the corpus callosum, dense white matter tracts, include glioblastoma anaplastic astrocytoma and primary DEPUTY MANAGER lymphoma. MS can give similar appearance but there are no other lesions in the brain to suggest this is the diagnosis. This is an unusual place for an isolated brain metastasis. - Oncology was consulted. - CT Chest/Abd/pelvis with no evidence to suggest a primary malignancy in the abdomen or pelvis or thorax. - Pt is recommended to repeat MRI w/wo contrast in 2-3 months. The lesion would be dangerous to biopsy as it is in a central location within the brain. - Pt was able to be taken off nicardipine drip on 04/22 and has maintained systolic blood pressure in the 150-160s. - Pt is on Lisinopril 40mg po daily, Norvasc 10mg po daily, HCTZ 25mg po daily. - We will change the Lisinopril to 20mg po BID and stop the Norvasc and start Procardia XL 30mg po daily - Monitor BP and possible d/c tomorrow if BP is stable. (2) Hypertension Status: Chronic Plan: - See above. (3) Intracranial mass Status: Acute Plan: - See above. (4) Diabetes mellitus type 2, noninsulin dependent Status: Chronic Plan: - NovoLog SSI - Diabetic diet Assessment and Plan Patient examined. Assessment and plan formulated with Yue Hyman PA-C. I agree with the above. Problem Qualifiers (1) Headache: Qualified Code: R51 - Nonintractable headache, unspecified chronicity pattern, unspecified headache type (2) Hypertension: Qualified Code: I15.9 - Secondary hypertension Yue Hyman Apr 24, 2017 14:08 Mamadou Andrew DO Apr 25, 2017 15:20
--- NOTE | 2017-04-24 15:27 | HHI.NSPN ---
(Yani Ding) Note Status Status: Progress Note (Yani Ding) Interval History Interval History Mr. Mehta is a 47-year-old male who presents to [place] ED today with complaints of headaches. The history was obtained with the aid of his at bedside as the patient received pain medication and is drowsy. His reports the patient had complained of headaches located behind the right eye this morning. It was severe enough that he presented to the ED for further evaluation. 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 An MRI of brain was obtained which showed a mass in the right paramidline frontal possible vascular malformation versus cavernous angioma. The patient denies focal weakness, double vision, seizures, nausea, vomiting. He reports no personal history of aneurysm, tumors or cancers. A neurosurgical evaluation was requested. 04/22: headaches resolved, denies focal weakness, vomiting, seizures, vision changes 04/23: stable overnight, Oncology evaluation noted. 04/24: no new neurological complaints. (Yani Ding) Labs, Micro, & Vital Signs Results Date Time Temp Pulse Resp B/P Pulse Ox O2 Delivery O2 Flow Rate FiO2 04/24/17 12:32 97.1 67 18 155/78 99 04/24/17 08:56 21 04/24/17 08:00 97.7 65 18 168/81 97 04/24/17 05:45 98.0 75 19 154/81 98 04/24/17 00:30 98.0 72 18 165/80 98 04/23/17 21:15 98.3 75 16 156/75 98 04/23/17 16:00 98.3 98 31 178/92 100 04/23/17 16:00 98 04/24/17 07:00 Intake Total 2680 ml Output Total 575 ml Balance 2105 ml Constitutional Vital Signs Date Time Temp Pulse Resp B/P Pulse Ox O2 Delivery O2 Flow Rate FiO2 04/24/17 12:32 97.1 67 18 155/78 99 04/24/17 08:56 21 04/24/17 08:00 97.7 65 18 168/81 97 04/24/17 05:45 98.0 75 19 154/81 98 04/24/17 00:30 98.0 72 18 165/80 98 04/23/17 21:15 98.3 75 16 156/75 98 04/23/17 16:00 98.3 98 31 178/92 100 04/23/17 16:00 98 04/24/17 07:00 Intake Total 2680 ml Output Total 575 ml Balance 2105 ml (Yani Ding) Review of Systems/Exam Exam Mr. Mehta is alert, oriented to time, place and person. Speech is fluent. Follows commands well. Sitting up in chair. Cranial nerve examination: pupils 2-3 equal, round, and reactive to light. Extra -ocular movements are intact. Facial motor and sensory function are normal and symmetrical. Neck is soft and supple. No meningismus or nuchal rigidity. Motor: moves both upper and lower extremities symmetrically Sensory examination is intact to light touch in both the upper and lower extremities, symmetrically. Cerebellar examination is intact to [id number] test (Yani Ding) Medications Current Medications Current Medications Medications (Trade) Dose Ordered Sig/Jatin Route PRN Reason Start Time Stop Time Status Last Admin Dose Admin Sodium Chloride (NS Flush) 2 ml UNSCH PRN IV FLUSH FLUSH AFTER USING IV ACCESS 04/21/17 14:00 Sodium Chloride (NS Flush) 2 ml BID IV FLUSH 04/21/17 21:00 04/24/17 09:10 Acetaminophen (Tylenol) 650 mg Q6H PRN PO PAIN 1-10 AND/OR FEVER >101F 04/21/17 14:00 04/22/17 19:47 Ondansetron HCl (Zofran Inj) 4 mg Q6H PRN IV NAUSEA OR VOMITING 04/21/17 14:00 Miscellaneous Information 1 Q361D XX 04/21/17 14:00 04/21/17 14:00 Chlorhexidine Gluconate (Chlorhexidine 2% Cloth) 3 pack Taper DAILY@04 TOP 04/22/17 04:00 04/18/18 03:59 04/23/17 03:50 Chlorhexidine Gluconate (Chlorhexidine 2% Cloth) 3 pack UNSCH PRN [facility] 04/21/17 14:00 Senna/Docusate Sodium (Ashley-Colace) 1 tab BID PO 04/21/17 21:00 Magnesium Hydroxide (Milk Of Magnesia Liq) 30 ml Q12H PRN PO MILD - MODERATE CONSTIPATION 04/21/17 14:00 Sennosides (Senokot) 17.2 mg Q12H PRN PO MODERATE - SEVERE CONSTIPATION 04/21/17 14:00 Bisacodyl (Dulcolax Supp) 10 mg DAILY PRN RECTAL SEVERE CONSITIPATION 04/21/17 14:00 Lactulose (Lactulose Liq) 30 ml DAILY PRN PO SEVERE CONSITIPATION 04/21/17 14:00 Insulin Aspart (NovoLOG SUPPLEMENTAL SCALE) 1 Q6HR SQ 04/21/17 18:00 04/24/17 12:00 Dextrose (D50w (Vial) Inj) 25 ml UNSCH PRN IV HYPOGLYCEMIA-SEE COMMENTS 04/21/17 14:15 Glucagon (Glucagon Inj) 1 mg UNSCH PRN IM/SQ HYPOGLYCEMIA-SEE COMMENTS 04/21/17 14:15 Hydrochlorothiazide (Hydrodiuril) 25 mg DAILY PO 04/21/17 18:00 04/24/17 09:15 Pantoprazole Sodium (Protonix) 40 mg DAILY PO 04/25/17 09:00 Lisinopril (Prinivil) 20 mg BID PO 04/24/17 21:00 Nifedipine (Procardia Xl) 30 mg DAILY PO 04/25/17 09:00 (Yani Ding) Medical Decision Making MDM Remarks 47 y/o male presented with intractable headaches, improved MRI Brain showed right fontal paramidline mass, poss venous malformation or hemangioma CTA Head reports no aneurysm, but 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 I reviewed and agree with the findings presented. I attest that I had a [id number] encounter with the patient on the same day, and personally performed and documented my assessment and findings in the medical record. (Miguelito Romero MD) Yani Ding Apr 24, 2017 15:27 Miguelito Romero MD Apr 30, 2017 19:14
[2017-04-24 16:51] VITALS: BP 136/72; PULSE 78; RESP 18; TEMP 97.9; O2SAT 100
[2017-04-24 21:09] VITALS: BP 152/71; PULSE 79; RESP 20; TEMP 97.4; O2SAT 96
[2017-04-24] MEDS: LISINOPRIL 20 MG TAB PO SCH (21:21)
[2017-04-25 00:22] VITALS: BP 137/65; PULSE 73; RESP 20; TEMP 96.9; O2SAT 99
[2017-04-25] MEDS: CHLORHEXIDINE GLUCONATE 2 % 1 PACK (2 CLOTHS) TOP SCH (00:36)
[2017-04-25 04:29] VITALS: BP 147/59; PULSE 71; RESP 20; TEMP 96.4; O2SAT 97
[2017-04-25] MEDS: INSULIN ASPART SUPPLEMENTAL SCALE SQ SCH ×2 (06:31→12:00)
[2017-04-25 07:58] VITALS: BP 125/58; PULSE 65; RESP 18; TEMP 96.9; O2SAT 100
[2017-04-25] MEDS: HYDROCHLOROTHIAZIDE 25 MG TAB PO SCH (08:58)
[2017-04-25] MEDS: LISINOPRIL 20 MG TAB PO SCH (08:59)
[2017-04-25] MEDS ORDERED: NIFEdipine 30 MG SUSTAINED RELEASE TAB PO SCH (09:00)
[2017-04-25] MEDS: DOCUSATE SODIUM 50 MG/SENNA 8.6 MG TAB PO SCH (09:00)
[2017-04-25] MEDS ORDERED: PANTOPRAZOLE SOD 40 MG DELAYED RELEASE TAB PO SCH (09:00)
[2017-04-25] MEDS: SODIUM CHLORIDE 0.9% FLUSH 10 ML FLUSH IV FLUSH SCH (09:03)
[2017-04-25 11:39] VITALS: BP 156/91; PULSE 69; RESP 18; TEMP 96.9; O2SAT 100
--- NOTE | 2017-04-25 12:39 | HHI.NSPN ---
(Yani Ding) Note Status Status: Progress Note (Yani Ding) Interval History Interval History Mr. Mehta is a 47-year-old male who presents to [place] ED today with complaints of headaches. The history was obtained with the aid of his at bedside as the patient received pain medication and is drowsy. His reports the patient had complained of headaches located behind the right eye this morning. It was severe enough that he presented to the ED for further evaluation. 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 An MRI of brain was obtained which showed a mass in the right paramidline frontal possible vascular malformation versus cavernous angioma. The patient denies focal weakness, double vision, seizures, nausea, vomiting. He reports no personal history of aneurysm, tumors or cancers. A neurosurgical evaluation was requested. 04/22: headaches resolved, denies focal weakness, vomiting, seizures, vision changes 04/23: stable overnight, Oncology evaluation noted. 04/24: no new neurological complaints. 04/25: denies headaches, managing bp per medical physician. (Yani Ding) Labs, Micro, & Vital Signs Results Date Time Temp Pulse Resp B/P Pulse Ox O2 Delivery O2 Flow Rate FiO2 04/25/17 11:39 96.9 69 18 156/91 100 04/25/17 07:58 96.9 65 18 125/58 100 04/25/17 04:29 96.4 71 20 147/59 97 04/25/17 00:22 96.9 73 20 137/65 99 04/24/17 21:09 97.4 79 20 152/71 96 04/24/17 16:51 97.9 78 18 136/72 100 04/25/17 07:00 Intake Total 480 ml Balance 480 ml Constitutional Vital Signs Date Time Temp Pulse Resp B/P Pulse Ox O2 Delivery O2 Flow Rate FiO2 04/25/17 11:39 96.9 69 18 156/91 100 04/25/17 07:58 96.9 65 18 125/58 100 04/25/17 04:29 96.4 71 20 147/59 97 04/25/17 00:22 96.9 73 20 137/65 99 04/24/17 21:09 97.4 79 20 152/71 96 04/24/17 16:51 97.9 78 18 136/72 100 04/25/17 07:00 Intake Total 480 ml Balance 480 ml (Yani Ding) Review of Systems/Exam Exam Mr. Mehta is alert, oriented to time, place and person. Speech is fluent. Follows commands well. Sitting up in chair. Cranial nerve examination: pupils 2-3 equal, round, and reactive to light. Extra -ocular movements are intact. Facial motor and sensory function are normal and symmetrical. Neck is soft and supple. No meningismus or nuchal rigidity. Motor: moves both upper and lower extremities symmetrically Sensory examination is intact to light touch in both the upper and lower extremities, symmetrically. Cerebellar examination is intact to [id number] test (Yani Ding) Medications Current Medications Current Medications Medications (Trade) Dose Ordered Sig/Jatin Route PRN Reason Start Time Stop Time Status Last Admin Dose Admin Sodium Chloride (NS Flush) 2 ml UNSCH PRN IV FLUSH FLUSH AFTER USING IV ACCESS 04/21/17 14:00 Sodium Chloride (NS Flush) 2 ml BID IV FLUSH 04/21/17 21:00 04/25/17 09:03 Acetaminophen (Tylenol) 650 mg Q6H PRN PO PAIN 1-10 AND/OR FEVER >101F 04/21/17 14:00 04/22/17 19:47 Ondansetron HCl (Zofran Inj) 4 mg Q6H PRN IV NAUSEA OR VOMITING 04/21/17 14:00 Miscellaneous Information 1 Q361D XX 04/21/17 14:00 04/21/17 14:00 Chlorhexidine Gluconate (Chlorhexidine 2% Cloth) 3 pack Taper DAILY@04 TOP 04/22/17 04:00 04/18/18 03:59 04/23/17 03:50 Chlorhexidine Gluconate (Chlorhexidine 2% Cloth) 3 pack UNSCH PRN [facility]GI[facility] 04/21/17 14:00 Senna/Docusate Sodium (Ashley-Colace) 1 tab BID PO 04/21/17 21:00 Magnesium Hydroxide (Milk Of Magnesia Liq) 30 ml Q12H PRN PO MILD - MODERATE CONSTIPATION 04/21/17 14:00 Sennosides (Senokot) 17.2 mg Q12H PRN PO MODERATE - SEVERE CONSTIPATION 04/21/17 14:00 Bisacodyl (Dulcolax Supp) 10 mg DAILY PRN RECTAL SEVERE CONSITIPATION 04/21/17 14:00 Lactulose (Lactulose Liq) 30 ml DAILY PRN PO SEVERE CONSITIPATION 04/21/17 14:00 Insulin Aspart (NovoLOG SUPPLEMENTAL SCALE) 1 Q6HR SQ 04/21/17 18:00 04/25/17 06:31 Dextrose (D50w (Vial) Inj) 25 ml UNSCH PRN IV HYPOGLYCEMIA-SEE COMMENTS 04/21/17 14:15 Glucagon (Glucagon Inj) 1 mg UNSCH PRN IM/SQ HYPOGLYCEMIA-SEE COMMENTS 04/21/17 14:15 Hydrochlorothiazide (Hydrodiuril) 25 mg DAILY PO 04/21/17 18:00 04/25/17 08:58 Pantoprazole Sodium (Protonix) 40 mg DAILY PO 04/25/17 09:00 04/25/17 08:57 Lisinopril (Prinivil) 20 mg BID PO 04/24/17 21:00 04/25/17 08:59 Nifedipine (Procardia Xl) 30 mg DAILY PO 04/25/17 09:00 04/25/17 08:59 (Yani Ding) Medical Decision Making MDM Remarks 47 y/o male presented with intractable headaches, improved MRI Brain showed right fontal paramidline mass, poss venous malformation or hemangioma CTA Head reports no aneurysm, but 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, glioblastoma (Yani Ding) Plan Plan Remarks discussed with patient treatment options of brain biopsy vs watching with repeat MRI in 3 months pt requests nonsurgical mgt for now repeat MRI Brain w/wo contrast in 3 months and f/u outpatient dw patient again treatment plan, he understands and questions answered clear for dc from NRS standpoint when blood pressure improves cont mgt per hospitalist for hypertension f/u outpatient (Yani Ding) Attending Statement The exam, history, and the medical decision-making described in the above note were completed with the assistance of the mid-level provider. I reviewed and agree with the findings presented. I attest that I had a [id number] encounter with the patient on the same day, and personally performed and documented my assessment and findings in the medical record. (Miguelito Romero MD) Yani Ding Apr 25, 2017 12:39 Miguelito Romero MD Apr 30, 2017 19:16
[2017-04-25] MEDS ORDERED: Lisinopril PO (15:17)
[2017-04-25] MEDS ORDERED: NIFEDIPINE PO (15:17)
--- NOTE | 2017-04-25 15:19 | HHI.DCPOC ---
Discharge Care Plan Diagnosis: (1) Intracranial mass (2) Headache (3) Hypertension (4) Diabetes mellitus type 2, noninsulin dependent Goals to Promote Your Health * To prevent worsening of your condition and complications * To maintain your health at the optimal level Directions to Meet Your Goals Take your medications as prescribed Follow your dietary instruction Follow activity as directed Keep your appointments as scheduled Take your immunizations and boosters as scheduled If your symptoms worsen call your PCP, if no PCP go to Urgent Care Center or Emergency Room Smoking is Dangerous to Your Health. Avoid second hand smoke Call the 24-hour hour crisis hotline for domestic abuse at Mamadou Andrew DO Apr 25, 2017 15:19
--- NOTE | 2017-04-25 15:24 | HHI.DS ---
Discharge Summary Admission Date Apr 21, 2017 at 13:51 Discharge Date: Apr 25, 2017 Admitting Diagnosis Poss Intracranial Aneurysm, HTN, PALAFOX (1) Headache Diagnosis: Principal (2) Hypertension Diagnosis: Principal (3) Intracranial mass Diagnosis: Principal (4) Diabetes mellitus type 2, noninsulin dependent Diagnosis: Secondary Consultants Dr. Romero, Neurosurgery Dr. Doron Jimenez, Oncology Brief History 47 yo M c/o R forehead cephalgia, gradual onset over 3 hours or so prior to coming to ER. 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 This morning he had 2 bowel movements, the prior was loose, as such the patient had no appetite, did not eat breakfast and did not take his lisinopril as he normally would every morning. HTN upon arrival noted. No LOC, numbness/tingling/ weakness. No neck stiffness. PALAFOX quality is throbbing and of moderate severity. Patient had a systolic blood pressure in the 230s in the ER. He was initiated on a nicardipine drip. Head CT revealed hyperdense lesion in the frontal region pallor midline anterior to anterior horns of the lateral ventricles. MRI brain and CTA ordered for further evaluation and neurosurgery consult requested. Dr. Romero. Patient was accepted for admission by critical care medicine service. When I evaluated the patient in the ER he had just finished his MRI and CTA and was drowsy from Ativan and Benadryl which she had received earlier prior to imaging. He knew he was at the hospital and was following commands appropriately. He still had a headache that this was slightly better. He was on a nicardipine drip at that time at 15 mg/h with systolic blood pressure 160s. He denied any history of similar symptoms previously and stated that he is a known diabetic and hypertensive and is usually compliant with his meds and has a well-controlled blood pressure and fingerstick glucoses runs around 120s to 140s on metformin. CBC/BMP: 04/22/17 0520 04/22/17 0520 Imaging Last Impressions Head CT 04/22/17 0000 Signed Impressions: Service Date/Time: Saturday, April 22, 2017 14:54 - CONCLUSION: No significant change. Oval hyperdensity again seen in the region of the corpus callosum anteriorly. Johnny Hitchcock MD Chest CT 04/22/17 0000 Signed Impressions: Service Date/Time: Saturday, April 22, 2017 14:59 - CONCLUSION: No acute findings in the chest. Johnny Hitchcock MD Abdomen/Pelvis CT 04/22/17 0000 Signed Impressions: Service Date/Time: Saturday, April 22, 2017 14:59 - CONCLUSION: Hepatic steatosis. No acute findings in the abdomen and pelvis. Johnny Hitchcock MD Head CTA 04/21/17 1316 Signed Impressions: Service Date/Time: Friday, April 21, 2017 14:17 - CONCLUSION: Negative CTA of the brain. Enhancing lesions involve the corpus callosum, dense white matter tracts, include glioblastoma anaplastic astrocytoma and primary SKIDDER lymphoma. MS can give similar appearance but there are no other lesions in the brain to suggest this is the diagnosis. This is an unusual place for an isolated brain metastasis. Ry Preston MD FACR Neck CTA 04/21/17 0000 Signed Impressions: Service Date/Time: Friday, April 21, 2017 14:17 - CONCLUSION: 1. Very mild calcified plaque involving the origin of the internal carotid arteries bilaterally resulting in mild, less than 50%%, stenosis. 2. Otherwise, unremarkable CTA examination of the neck. Garrett Romero MD Chest X-Ray 04/21/17 0000 Signed Impressions: Service Date/Time: Friday, April 21, 2017 14:24 - CONCLUSION: 1. Hypoinflation with no acute infiltrate. 2. Borderline prominent but well compensated heart. Jas Chavarria MD Brain MRI 04/21/17 0000 Signed Impressions: Service Date/Time: Friday, April 21, 2017 11:45 - CONCLUSION: 1. Area of increased density on CT corresponds to a 8-9 mm nonenhancing lesion in the genu of the corpus callosum which does appear to contain a central vessel. This same lesion shows a ring of hemosiderin on the axial T2-weighted images with marked blooming artifact on the susceptibility weighted images characteristic of regional blood. Imaging characteristics are overtly benign and I would consider entities such as a cavernous angioma or other small vascular malformation. I believe a low-grade neoplasm or aneurysm is much less likely but I would recommend a CTA of the head to exclude the latter. 2. Otherwise, mild, scattered white matter changes. Jas Chavarria MD PE at Discharge General: NAD, AAOx3 Chest: CTA bilaterally Cardiac: Regular Abd: +BS, soft ND/NT Ext: No edema Hospital Course (1) Headache Status: Acute Plan: - Pt is a 47 y/o male who was admitted on 04/21/17 with complaints of acute right forehead cephalgia. - The pt had a systolic blood pressure in the 230s in the ER and was initiated on a nicardipine drip. - Pt was admitted to [facility] [place] with Neurosurgery following. - Head CT (04/21/17) --> Hyperdense lesion in the frontal region pallor midline anterior to anterior horns of the lateral ventricles. - MRI brain (04/21/17) --> Area of increased density on CT corresponds to a 8-9 mm nonenhancing lesion in the genu of the corpus callosum which does appear to contain a central vessel. This same lesion shows a ring of hemosiderin on the axial T2-weighted images with marked blooming artifact on the susceptibility weighted images characteristic of regional blood. Imaging characteristics are overtly benign and I would consider entities such as a cavernous angioma or other small vascular malformation. - CTA Brain (04/21) --> Negative CTA of the brain. Enhancing lesions involve the corpus callosum, dense white matter tracts, include glioblastoma anaplastic astrocytoma and primary SKIDDER lymphoma. MS can give similar appearance but there are no other lesions in the brain to suggest this is the diagnosis. This is an unusual place for an isolated brain metastasis. - Oncology was consulted. - CT Chest/Abd/pelvis with no evidence to suggest a primary malignancy in the abdomen or pelvis or thorax. - Pt is recommended to repeat MRI w/wo contrast in 2-3 months. The lesion would be dangerous to biopsy as it is in a central location within the brain. - Pt was able to be taken off nicardipine drip on 04/22 and has maintained systolic blood pressure in the 150-160s. - Pt is on Lisinopril 40mg po daily, Norvasc 10mg po daily, HCTZ 25mg po daily. - We will change the Lisinopril to 20mg po BID and stop the Norvasc and start Procardia XL 30mg po daily - Blood pressure reviewed on the day of discharge and overall improved with bedside SBP of 147 - will discharge to home on above new regimen - Pt to maintain low salt diet, increase exercise, and work on weight loss. - f/u with PCP, Dr. Choi, in 1 week - f/u with Neurosurgery, Dr. Romero, in 3 months - Pt will need repeat MRI brain in 3 months - see discharge orders (2) Hypertension Status: Chronic Plan: - See above. (3) Intracranial mass Status: Acute Plan: - See above. (4) Diabetes mellitus type 2, noninsulin dependent Status: Chronic Plan: - NovoLog SSI - Diabetic diet - resume outpt dose of metformin upon discharge Pt Condition on Discharge: Stable Discharge Disposition: Discharge Home Discharge Instructions DIET: Follow Instructions for: Heart Healthy Diet Activities you can perform: Regular-No Restrictions Follow up Referrals: Neurosurgery - 3 Months @ Neurosurgical - Dr Romero PCP Follow-up - [address] Dorys Choi New Medications: ([Lisinopril]) 20 MG TAB 20 MG PO BID HTN #60 Ref 0 TAB ([NIFEdipine SR]) 30 MG TABCR 30 MG PO DAILY HTN #30 Ref 0 TAB.SR Continued Medications: Hydrochlorothiazide (Hydrochlorothiazide) 25 Mg Tab 25 MG PO DAILY #30 Ref 0 TAB Metformin (Metformin) 500 Mg Tab 500 MG PO BIDPC With meals Blood Sugar Management #60 Ref 0 TAB Discontinued Medications: Lisinopril (Lisinopril) 20 Mg Tab 20 MG PO DAILY #30 Ref 0 TAB Mamadou Andrew DO Apr 25, 2017 15:24
== END 2017-04-25 19:09 | disposition home or self-care (01) | DRG 71 ==
LOC: NEPE 08:50 → NEDA 13:51 → N03A 17:21 → N05B 04-23 17:25
PROVIDERS: ADMIT Hospitalist; ATTEND Hospitalist
DX: G93.9 Disorder of brain, unspecified (principal); I16.9 Hypertensive crisis, unspecified; I15.9 Secondary hypertension, unspecified; R51 Headache; E11.9 Type 2 diabetes mellitus without complications; Z79.84 Long term (current) use of oral hypoglycemic drugs; G47.33 Obstructive sleep apnea (adult) (pediatric); E66.9 Obesity, unspecified
CPT/HCPCS: 70450; 70496; 70498; 70553; 71010; 71260; 74177; 80048; 80053; 82948; 85025; 85610; 85730; 96365; 96375; A9579; C9113; J0780; J1200; J1815; J2060; J7030; J7050; Q9967

== ENCOUNTER 2017-11-20 23:04 | Inpatient (IN) | payer OTHER ==
[~2017-11-20] VITALS: Ht 167.6 cm; Wt 126.0 kg
[~2017-11-20 23:04] MED LIST changes: -ERYT1O EACH EYE; -GLUCTAB PO; -HYDR-2768 PO; +HYDR25TA5 PO; -LISI-363 PO; -LISI-587 PO; +Lisinopril PO; +METF500T PO; +NIFEDIPINE PO
[2017-11-20 23:06] VITALS: BP 219/105; PULSE 73; RESP 16; TEMP 98.4; O2SAT 98
[2017-11-20 23:38] VITALS: BP 250/111; PULSE 70; RESP 19; O2SAT 99
[2017-11-21] VITALS (14 sets, daily range): BP systolic 136–209; BP diastolic 64–95; PULSE 64–79; RESP 15–20; TEMP 97.6–98.8; O2SAT 98–100
--- NOTE | 2017-11-21 00:04 | PD ---
HPI Chief Complaint: Flank/Kidney Pain Time Seen by Provider: 23:50 Travel History International Travel<30 days: No Contact w/Intl Traveler<30days: No Traveled to known affect area: No History of Present Illness HPI The patient is a 47 year old male who presents to the [facility] emergency department with a history of right shoulder pain and left flank pain that began 2 weeks ago. The pain has been constant. The patient arrives with a bp of 250/ 111. He is taking lisinopril for his bp however he threw it up this morning. He reports that he is taking 20 mg once a day. He reports that in the past he was on multiple other blood pressure medications that he cannot recall the name of, however he currently has no primary care physician. The pain in his shoulder and left flank is worse with movement and sharp in character. The pain is duller with staying still. He denies any trauma or injury. He denies any recent heavy lifting. He reports that he began to have nausea today. He reports that he's vomited twice. He denies having any chest pain. He has chronic shortness of breath and intermittent palpations. On review of systems, he denies having any headache currently, neck pain, fevers or chills, cough, congestion, abdominal pain, or neurologic symptoms. He has chronic diarrhea x5 per day since starting on Metformin for DM years ago. He reports that he has no dysuria or change in color of his urine, however he does have urinary frequency and urgency. PCP: None currently. PFSH Past Medical History Narrative Medical The patient's past medical history is significant for dm, hypertension, according to the electronic medical record a history of a brain mass evaluated and found and the hospital in April 2017. The patient had an oncology evaluation by Dr. Jimenez, neurosurgical evaluation by Dr. Romero while in the hospital. The type of mass was unable to be determined. The mass was deep within the brain, therefore biopsy would be difficult. According to the neurosurgical record it was recommended that he follow-up for repeat MRI imaging in 3 months. He reports that he lost his insurance and never followed up with anyone regarding this. ADHD: No Arthritis: No Asthma: No Autoimmune Disease: No Blood Disorders: No Anxiety: No Depression: No Heart Rhythm Problems: No Cancer: No Cardiovascular Problems: Yes (HTN/ POSSIBLE CA) High Cholesterol: No Chemotherapy: No Chest Pain: No Congestive Heart Failure: No COPD: No Cerebrovascular Accident: No Diabetes: Yes Patient Takes Glucophage: Yes Diminished Hearing: No Endocrine: No Gastrointestinal Disorders: No GERD: No Glaucoma: No Genitourinary: No Headaches: No Hepatitis: No Hiatal Hernia: No Heparin Induced Thrombocytopen: No Hypertension: Yes Immune Disorder: No Implanted Vascular Access Dvce: No Kidney Stones: No Musculoskeletal: No Neurologic: No Psychiatric: No Reproductive: No Respiratory: Yes Immunizations Current: Yes Migraines: No Myocardial Infarction: No Radiation Therapy: No Renal Failure: No Seizures: No Sickle Cell Disease: No Sleep Apnea: Yes Thyroid Disease: No Ulcer: No Past Surgical History Surgical History: No Previous Surgery Abdominal Surgery: No AICD: No Appendectomy: No Arteriovenous Shunt: No Cardiac Surgery: No Cholecystectomy: No Ear Surgery: No Endocrine Surgery: No Eye Surgery: No Genitourinary Surgery: No Gynecologic Surgery: No Insulin Pump: No Joint Replacement: No Neurologic Surgery: No Oral Surgery: No Pacemaker: No Thoracic Surgery: No Other Surgery: No Social History Alcohol Use: No Tobacco Use: No Substance Use: No Allergies-Medications (Allergen,Severity, Reaction): Coded Allergies: No Known Allergies (Verified Allergy, Unknown, 11/21/17) Reported Meds & Prescriptions Reported Meds & Active Scripts Active [NIFEdipine SR] 30 MG Tabcr 30 Mg PO DAILY [Lisinopril] 20 MG Tab 20 Mg PO BID Reported Hydrochlorothiazide 25 Mg Tab 25 Mg PO DAILY Metformin (Metformin HCl) 500 Mg Tab 500 Mg PO BIDPC With meals Review of Systems Except as stated in HPI: all other systems reviewed are Neg General / Constitutional: No: Fever Eyes: No: Visual changes HENT: Positive: Headaches (intermittent headaches, none currently), No: Neck Stiffness, Neck Pain Cardiovascular: Positive: Dyspnea on exertion (chronic), No: Chest Pain or Discomfort Respiratory: Positive: Shortness of Breath (chronic with exertion) Gastrointestinal: Positive: Nausea, Vomiting, No: Abdominal Pain Genitourinary: Positive: Urgency, Frequency, No: Dysuria Musculoskeletal: Positive: Myalgias, Arthralgias, Limited ROM, Pain Skin: No Rash Neurologic: No: Weakness, Change in Mentation, Slurred Speech Psychiatric: No: Depression Endocrine: No: Polydipsia Hematologic/Lymphatic: No: Easy Bruising Physical Exam Narrative General: The patient is a well-developed well-nourished male in no acute distress. Head and Neck exam: Head is normocephalic atraumatic. Eyes: EOMI, pupils are equal round and reactive to light. Nose: Midline septum with pink mucous membranes Mouth: Dentition unremarkable. Moist mucus membranes. Posterior oropharynx is not erythematous. No tonsillar hypertrophy. Uvula midline. Airway patent. Neck: No palpable lymphadenopathy. No nuchal rigidity. No thyromegaly. Negative Brudzinski, negative Kernig sign. Pain in his shoulder or arm with movement of his neck. Cardiovascular: Regular rate and rhythm without murmurs, gallops, or rubs. The patient incidentally also reports that while I am in the room he has a sharp chest pain. He reports that it just began when he arrived in the emergency department. The patient reports that the pain is in the left side of his chest. It does not change with breathing in or out. He has no chest wall tenderness on palpation. Lungs: Clear to auscultation bilaterally. No wheezes, rhonchi, or rales. Abdomen: Soft, without tenderness to palpation in all 4 quadrants of the abdomen. No guarding, rebound, or rigidity. Normal bowel sounds are audible. No tenderness on palpation of McBurney's point. The patient has abdominal distention related to central obesity, no masses are palpable. Extremities: No clubbing or cyanosis. The patient has 1+ edema bilateral lower extremities. He reports that his edema is chronic and actually improved compared to previously. 2+ pulses in all 4 extremities. No calf tenderness on palpation. On examination of the area of interest, the right shoulder, the patient has no deformity noted. The patient has no clavicle tenderness on palpation or trapezius tenderness on palpation. The patient has tenderness on palpation just below the before meals joint and the bicipital groove when the patient's right arm is adducted across his chest. The patient also has pain with abduction past 40 of his shoulder. He is unable to lift her shoulder above his head due to pain Back: No spinous process tenderness to palpation. Left-sided CVA tenderness is noted on palpation. Neurologic Exam: Cranial nerves 2-12 were intact on exam. Strength is 5/5 in all 4 extremities. No sensory deficits noted. No dysdiadochokinesis. Good finger to nose and Heel to ann bilaterally. Skin Exam: No rash noted. Intact skin that is warm and dry. Data Data Last Documented VS Vital Signs Date Time Temp Pulse Resp B/P (MAP) Pulse Ox O2 Delivery O2 Flow Rate FiO2 11/21/17 02:02 66 16 195/88 (123) 99 Room Air 11/20/17 23:06 98.4 Orders Orders Electrocardiogram (11/20/17 23:58) Complete Blood Count With Diff (11/20/17 23:58) Comprehensive Metabolic Panel (11/20/17 23:58) Creatine Kinase (Cpk) (11/20/17 23:58) Ckmb (Isoenzyme) Profile (11/20/17 23:58) Troponin I (11/20/17 23:58) B-Type Natriuretic Peptide (11/20/17 23:58) Prothrombin Time / Inr (Pt) (11/20/17 23:58) Act Partial Throm Time (Ptt) (11/20/17 23:58) C-Reactive Protein (Crp) (11/20/17 23:58) Lipase (11/20/17 23:58) Urinalysis - C+S If Indicated (11/20/17 23:58) Magnesium (Mg) (11/20/17 23:58) Chest, Single Ap (11/20/17 23:58) Iv Access Insert/Monitor (11/20/17 23:58) Ecg Monitoring (11/20/17 23:58) Oximetry (11/20/17 23:58) CKMB (11/20/17 23:50) CKMB% (11/20/17 23:50) Labetalol Inj (Trandate Inj) (11/21/17 00:45) Morphine Inj (Morphine Inj) (11/21/17 00:45) Ondansetron Inj (Zofran Inj) (11/21/17 00:45) Ct Abd/Pel W Iv Contrast(Rout) (11/21/17 00:41) Ct Brain W/O Iv Contrast(Rout) (11/21/17 00:41) Iohexol 350 Inj (Omnipaque 350 Inj) (11/21/17 01:26) Nitroglycerin 2% Oint (Nitroglycerin 2% (11/21/17 02:15) Aspirin Chew (Aspirin Chew) (11/21/17 02:15) Enalaprilat Inj (Vasotec Inj) (11/21/17 02:15) Admit Order (Ed Use Only) (11/21/17 02:17) Labs Laboratory Tests Test 11/20/17 23:50 White Blood Count 7.4 TH/MM3 Red Blood Count 4.44 MIL/MM3 Hemoglobin 12.4 GM/DL Hematocrit 37.5 % Mean Corpuscular Volume 84.3 FL Mean Corpuscular Hemoglobin 27.8 PG Mean Corpuscular Hemoglobin Concent 33.0 % Red Cell Distribution Width 14.0 % Platelet Count 285 TH/MM3 Mean Platelet Volume 9.0 FL Neutrophils (%) (Auto) 56.3 % Lymphocytes (%) (Auto) 33.2 % Monocytes (%) (Auto) 8.9 % Eosinophils (%) (Auto) 1.1 % Basophils (%) (Auto) 0.5 % Neutrophils # (Auto) 4.2 TH/MM3 Lymphocytes # (Auto) 2.5 TH/MM3 Monocytes # (Auto) 0.7 TH/MM3 Eosinophils # (Auto) 0.1 TH/MM3 Basophils # (Auto) 0.0 TH/MM3 CBC Comment DIFF FINAL Differential Comment Prothrombin Time 9.7 SEC Prothromb Time International Ratio 1.0 RATIO Activated Partial Thromboplast Time 24.8 SEC Urine Color LIGHT-YELLOW Urine Turbidity CLEAR Urine pH 6.5 Urine Specific [place] 1.014 Urine Protein 300 mg/dL Urine Glucose (UA) TRACE mg/dL Urine Ketones NEG mg/dL Urine Occult Blood TRACE Urine Nitrite NEG Urine Bilirubin NEG Urine Urobilinogen LESS THAN 2.0 MG/DL Urine Leukocyte Esterase NEG Urine RBC LESS THAN 1 /hpf Urine WBC 1 /hpf Urine Squamous Epithelial Cells <1 /hpf Urine Mucus FEW /lpf Microscopic Urinalysis Comment CULT NOT INDICATED Blood Urea Nitrogen 21 MG/DL Creatinine 1.17 MG/DL Random Glucose 216 MG/DL Total Protein 7.6 GM/DL Albumin 3.0 GM/DL Calcium Level 8.7 MG/DL Magnesium Level 1.6 MG/DL Alkaline Phosphatase 71 U/L Aspartate Amino Transf (AST/SGOT) 26 U/L Alanine Aminotransferase (ALT/SGPT) 44 U/L Total Bilirubin 0.2 MG/DL Sodium Level 141 MEQ/L Potassium Level 4.1 MEQ/L Chloride Level 106 MEQ/L Carbon Dioxide Level 30.5 MEQ/L Anion Gap 5 MEQ/L Estimat Glomerular Filtration Rate 81 ML/MIN Total Creatine Kinase 451 U/L Creatine Kinase MB 4.3 NG/ML Creatine Kinase MB % 1.0 % Troponin I 0.03 NG/ML C-Reactive Protein 0.86 MG/DL B-Type Natriuretic Peptide 7 PG/ML Lipase 223 U/L MDM Medical Decision Making Medical Screen Exam Complete: Yes Emergency Medical Condition: Yes Medical Record Reviewed: Yes Interpretation(s) Last Impressions Head CT 11/21/1740 Signed Impressions: Service Date/Time: Tuesday, November 21, 2017 01:19 - CONCLUSION: 1. Unchanged hyperdense lesion involving anterior corpus callosum previously evaluated with MRI. 2. No acute intracranial abnormality. Yvan Spivey Jr., MD Abdomen/Pelvis CT 11/21/1740 Signed Impressions: Service Date/Time: Tuesday, November 21, 2017 01:22 - CONCLUSION: 1. No acute abnormality. 2. Hepatic steatosis. Yvan Spivey Jr., MD Chest X-Ray 11/20/17 0250 Signed Impressions: Service Date/Time: Tuesday, November 21, 2017 00:05 - CONCLUSION: 1. Mild cardiomegaly. Clear lungs. Yvan Spivey Jr., MD Differential Diagnosis Regarding left flank pain: Aortic dissection, versus kidney stone, versus urinary tract infection, versus musculoskeletal strain. Regarding right shoulder pain: Differential diagnosis includes rotator cuff injury, versus arthritis involving the right shoulder, versus shoulder impingement, versus acute coronary syndrome Narrative Course During the course of the patients emergency department visit, the patients history, examination, and differential diagnosis were reviewed with the patient. The patient was placed on a cardiac cath technologist with oximetry and frequent blood pressure monitoring. The patient had [-] IV access obtained and blood work sent for analysis. The patient had an ECG done on arrival. The patient's ECG reveals a sinus rhythm heart rate of 66, nonspecific T-wave abnormalities, QRS duration is 90 ms, QTC [address] segment elevation is noted. T waves are inverted in lead 3, V5, V6. The patient during my examination reports having sharp chest pain. He reports that he has never had this previously. The patient arrives with a blood pressure of 250/111. The patient was initially provided the patient was given labetalol 10 mg IV, morphine 4 mg IV, Zofran 4 mg IV. Aspirin 324 mg by mouth 1, nitroglycerin 1 inch the chest wall. The patient continued to be hypertensive and was given Vasotec 1.25 mg IV. The patients laboratory studies were reviewed and remarkable for a white count of 7.4, hemoglobin 12.4, platelets 285 with 8.9 monocytes, CMP is remarkable for a BUN of 21, glucose 216, CPK 451, MB percent 1.0, troponin I 0.03, C- reactive protein 0.86, BNP 7, lipase 223. PT 9.7, PTT 24.8, urinalysis shows a protein of 300, trace occult blood, otherwise unremarkable. Radiology studies were reviewed and remarkable for a chest x-ray that shows mild cardiomegaly, clear lungs. CT scan of the brain shows unchanged hyperdense lesion involving the anterior corpus callosum, previously evaluated with MRI. No acute intracranial abnormality. CT scan of the abdomen and pelvis shows no acute abnormality. Hepatic steatosis is noted. The patient will be admitted to the hospital for hypertensive urgency, chest pain rule out serial cardiac enzyme protocol. The patients results were discussed with the patient, including the plan of care. I explained that further testing and/ or monitoring is indicated based on the patients history, examination, and/ or laboratory findings. Therefore, I recommended admission for additional evaluation. The patient expressed understanding and was agreeable with this plan. The patient was admitted to the hospital in guarded condition and sent to a bed under the care of the [facility] service. Physician Communication Physician Communication The patient's case including history, pertinent physical examination findings, and laboratory studies were discussed with Dr. Delong. It was agreed that the patient would be admitted to the [facility] service. Diagnosis Primary Impression: Hypertensive urgency Additional Impressions: Noncompliance with medication regimen Chest pain Qualified Codes: R07.2 - Precordial pain Admitting Information Admitting Physician Requests: Admit Chanel Gill MD Nov 21, 2017 00:04
[2017-11-21 00:16] LABS: AUTOMATED NEUTROPHIL # 4.2 TH/MM3 (1.8-7.7); BASOPHIL % 0.5 % (0.0-2.0); EOSINOPHIL # 0.1 TH/MM3 (0-0.4); EOSINOPHIL % 1.1 % (0.0-4.0); HEMATOCRIT 37.5 % (39.0-51.0); HEMOGLOBIN 12.4 GM/DL (13.0-17.0); LYMPH % 33.2 % (9.0-44.0); LYMPHOCYTE # 2.5 TH/MM3 (1.0-4.8); MEAN CELL VOLUME 84.3 FL (80.0-100.0); MEAN CORPUSCULAR HEMOGLOBIN 27.8 PG (27.0-34.0); MONO % 8.9 % (0.0-8.0); MONOCYTE # 0.7 TH/MM3 (0-0.9); NEUT % 56.3 % (16.0-70.0); PLATELET COUNT 285 TH/MM3 (150-450); RED BLOOD COUNT 4.44 MIL/MM3 (4.50-5.90); WHITE BLOOD COUNT 7.4 TH/MM3 (4.0-11.0)
[2017-11-21 00:18] LABS: BILIRUBIN, URINE NEG (NEG); BLOOD, URINE TRACE (NEG); GLUCOSE,URINE TRACE mg/dL (NEG); KETONE, URINE NEG (NEG); MUCUS URINE FEW /lpf (OCC); NITRITE,URINE NEG (NEG); PH, URINE 6.5 (5.0-8.5); SQUAMOUS EPITHELIAL CELL URINE <1 /hpf (0-5); URINE COLOR LIGHT-YELLOW (YELLW/STRAW); URINE LEUKOCYTE ESTERASE NEG (NEG)
[2017-11-21 00:27] LABS: PROTHROMBIN TIME - PATIENT 9.7 SEC (9.8-11.6)
--- NOTE | 2017-11-21 00:30 | RADRPT ---
EXAM DATE/TIME: 11/21/2017 00:05 [facility] COMPARISON: CHEST SINGLE AP, April 21, 2017, 14:24. INDICATIONS : Left lower chest pain. MEDICAL HISTORY : Hypertension. SURGICAL HISTORY : None. ENCOUNTER: Initial ACUITY: 2 weeks PAIN SCORE: 10/10 LOCATION: Left chest FINDINGS: A single view of the chest demonstrates the lungs to be symmetrically aerated without evidence of mas s, infiltrate or effusion. Stable mild cardiomegaly. No pulmonary vascular engorgement. Osseous struc tures are intact. CONCLUSION: 1. Mild cardiomegaly. Clear lungs. Yvan Spivey Jr., MD on November 21, 2017 at 0:29 Board Certified Radiologist. This report was verified electronically.
[2017-11-21 00:31] LABS: ALT (GPT) 44 U/L (12-78); AST (GOT) 26 U/L (15-37); BICARBONATE 30.5 MEQ/L (21.0-32.0); BLOOD UREA NITROGEN 21 MG/DL (7-18); CALCIUM 8.7 MG/DL (8.5-10.1); CHLORIDE 106 MEQ/L (98-107); CREATININE 1.17 MG/DL (0.60-1.30); GLOMERULAR FILTRATION RATE 81 ML/MIN (>89); GLUCOSE,RANDOM 216 MG/DL (74-106); LIPASE 223 U/L (73-393); MAGNESIUM 1.6 MG/DL (1.5-2.5); SODIUM (NA) 141 MEQ/L (136-145)
[2017-11-21 00:34] LABS: ALKALINE PHOSPHATASE 71 U/L (45-117); C-REACTIVE PROTEIN 0.86 MG/DL (0.00-0.30); TOTAL BILIRUBIN ADULT 0.2 MG/DL (0.2-1.0); TOTAL PROTEIN 7.6 GM/DL (6.4-8.2); TROPONIN I 0.03 NG/ML (0.02-0.05)
[2017-11-21] MEDS ORDERED: ONDANSETRON HCL 4 MG/2 ML VIAL IV PUSH ONE (00:45)
[2017-11-21] MEDS ORDERED: LABETALOL HCL 100 MG/20 ML VIAL IV PUSH ONE (00:45)
[2017-11-21] MEDS ORDERED: MORPHINE SULFATE 2 MG/ML INJ IV PUSH ONE (00:45)
[2017-11-21] MEDS ORDERED: IOHEXOL 350 MG/ML 10 ML VIAL (for RAD DIAG) IVCONTRAST ONE (01:26)
--- NOTE | 2017-11-21 01:45 | RADRPT ---
EXAM DATE/TIME: 11/21/2017 01:19 [facility] COMPARISON: CT BRAIN W/O CONTRAST, April 21, 2017, 9:32. CT BRAIN W/O CONTRAST, April 22, 2017, 14:54. INDICATIONS : Cephalgia. RADIATION DOSE: 54.96 CTDIvol (mGy) ; Tabletop CT Head MEDICAL HISTORY : Hypertension. Myocardial infarction. Diabetes. SURGICAL HISTORY : None. ENCOUNTER: Initial ACUITY: 1 day PAIN SCALE: 2/10 LOCATION: cranial TECHNIQUE: Multiple contiguous axial images were obtained of the head. Using automated exposure control and adj ustment of the mA and/or kV according to patient size, radiation dose was kept as low as reasonably a chievable to obtain optimal diagnostic quality images. DICOM format image data is available electro nically for review and comparison. FINDINGS: CEREBRUM: Again seen is a hyperdense lesion involving the corpus callosum anteriorly. It measures 9 x 8 mm. It is not generally mass effect. The remaining brain parenchyma is unremarkable. The ventricles are norm al for age. No evidence of midline shift, hemorrhage or acute infarction. No extra-axial fluid elias ections are seen. POSTERIOR FOSSA: The cerebellum and brainstem are intact. The 4th ventricle is midline. The cerebellopontine angle i s unremarkable. EXTRACRANIAL: The visualized portion of the orbits is intact. SKULL: The calvaria is intact. No evidence of skull fracture. CONCLUSION: 1. Unchanged hyperdense lesion involving anterior corpus callosum previously evaluated with MRI. 2. No acute intracranial abnormality. Yvan Spivey Jr., MD on November 21, 2017 at 1:39 Board Certified Radiologist. This report was verified electronically.
--- NOTE | 2017-11-21 01:47 | RADRPT ---
EXAM DATE/TIME: 11/21/2017 01:22 [facility] COMPARISON: CT ABDOMEN & PELVIS W CONTRAST, April 22, 2017, 14:59. INDICATIONS : Left flank pain. IV CONTRAST: 100 cc Omnipaque 350 (iohexol) IV ORAL CONTRAST: No oral contrast ingested. RADIATION DOSE: 27.06 CTDIvol (mGy) ; Patient body habitus MEDICAL HISTORY : Hypertension. Myocardial infarction. Diabetes. SURGICAL HISTORY : None. ENCOUNTER: Initial ACUITY: 1 day PAIN SCALE: 6/10 LOCATION: Left flank TECHNIQUE: Volumetric scanning of the abdomen and pelvis was performed. Using automated exposure control and ad justment of the mA and/or kV according to patient size, radiation dose was kept as low as reasonably achievable to obtain optimal diagnostic quality images. DICOM format image data is available electro nically for review and comparison. FINDINGS: LOWER LUNGS: Rdiomegaly. Clear lung bases. LIVER: Homogeneous low in density without lesion. There is no dilation of the biliary tree. No calcified g allstones. SPLEEN: Normal size without lesion. PANCREAS: Within normal limits. KIDNEYS: Normal in size and shape. There is no mass, stone or hydronephrosis. 1.5 cm cyst exophytic from the lower pole left kidney is stable. ADRENAL GLANDS: Within normal limits. VASCULAR: There is no aortic aneurysm. BOWEL/MESENTERY: The stomach, small bowel, and colon demonstrate no acute abnormality. There is no free intraperitone al air or fluid. ABDOMINAL WALL: Within normal limits. RETROPERITONEUM: There is no lymphadenopathy. BLADDER: No wall thickening or mass. REPRODUCTIVE: Within normal limits. INGUINAL: There is no lymphadenopathy or hernia. MUSCULOSKELETAL: Degenerative changes lumbar spine and SI joints. A large bridging osteophyte is seen involving the le ft SI joint and CONCLUSION: 1. No acute abnormality. 2. Hepatic steatosis. Yvan Spivey Jr., MD on November 21, 2017 at 1:43 Board Certified Radiologist. This report was verified electronically.
[2017-11-21] MEDS ORDERED: ASPIRIN 81 MG CHEW TAB CHEW ONE (02:15)
[2017-11-21] MEDS ORDERED: ENALAPRILAT 1.25 MG/ML VIAL IV PUSH ONE (02:15)
[2017-11-21] MEDS ORDERED: NITROGLYCERIN 2% OINT 1 GM PACKET TOPICAL ONE (02:15)
[2017-11-21] MEDS ORDERED: SODIUM CHLORIDE 0.9% FLUSH 10 ML FLUSH IV FLUSH PRN (03:00)
[2017-11-21] MEDS ORDERED: DEXTROSE 50% IN WATER 50 ML VIAL(D50) IV PUSH PRN (03:00)
[2017-11-21] MEDS ORDERED: GLUCAGON 1 MG/ML VIAL OTHER PRN (03:00)
[2017-11-21] MEDS ORDERED: LORazepam 2 MG/ML VIAL IV PUSH ONE (03:00)
[2017-11-21] MEDS ORDERED: cloNIDine HCL 0.1 MG TAB PO PRN (03:00)
--- NOTE | 2017-11-21 03:25 | HHI.HP ---
[facility] Service [facility] Primary Care Physician No Primary Care Physician Admission Diagnosis Hypertensive urgency, chest pain Diagnoses: Travel History International Travel<30 Days: No Contact w/Intl Traveler <30 Da: No Traveled to Known Affected Are: No History of Present Illness 47-year-old male with a past medical history significant for uncontrolled hypertension, type 2 diabetes mellitus and a brain lesion initially diagnosed in April of this year presents to the emergency department complaining of right shoulder and left flank pain. The patient reports he feels as if the pain in his shoulder is "in his joint." He has full range of motion of his shoulder however experiences pain with movement. He also complains of left-sided flank pain. Creatinine 1.1, which is baseline for the patient. CT of the abdomen and pelvis with no acute findings. The patient has a known right frontal per midline mass previously evaluated in April of this year as a possible venous malformation or hemangioma versus [employer] INSPECTOR lymphoma or glioblastoma. The patient elected to not have the mass biopsied at that time and was supposed to follow- up with neurosurgery and a brain MRI 3 months after discharge. He reports he was unable to do this secondary to losing his insurance. He denies any headaches at this time but does state he does have intermittent migraines. Patient was found to be hypertensive in the ED with a blood pressure of 250/ 111. He reports noncompliance with his blood pressure medications secondary to financial restraints and not having a PCP at this time. While being evaluated in the emergency department, the patient started to experience chest pain/ pressure. He states the pain is still present and feels like a squeezing sensation. Initial troponin negative. EKG shows normal sinus rhythm without ST segment elevations or depressions. Review of Systems Denies fever or chills Denies blurry vision, otorrhea, rhinorrhea Denies sore throat and cough Positive chest pain and palpitations, No shortness of breath No abdominal pain Denies constipation/diarrhea/nausea/vomiting Right shoulder and left flank pain No rashes Past Family Social History Past Medical History Hypertensive Diabetes mellitus Brain lesion Past Surgical History None Allergies: Coded Allergies: No Known Allergies (Verified Adverse Reaction, Unknown, 11/20/17) Family History Mother of MD at the age of 38 Social History Denies alcohol, tobacco and illicit drugs Physical Exam Vital Signs Vital Signs Date Time Temp Pulse Resp B/P (MAP) Pulse Ox O2 Delivery O2 Flow Rate FiO2 11/21/17 03:00 65 16 195/88 (123) 100 Room Air 11/21/17 02:30 64 15 208/95 (132) 99 Room Air 11/21/17 02:02 66 16 195/88 (123) 99 Room Air 11/21/17 01:34 68 16 209/95 (133) 99 Room Air 11/21/17 00:09 18 99 Room Air 11/20/17 23:38 70 19 250/111 (157) 99 Room Air 11/20/17 23:06 98.4 73 16 98 Room Air 11/20/17 23:06 219/105 (143) Physical Exam GENERAL: Obese, Rosa male lying in bed SKIN: No rashes, ecchymoses or lesions. Cool and dry. HEAD: Atraumatic. Normocephalic. No temporal or scalp tenderness. EYES: Pupils equal round and reactive. Extraocular motions intact. No scleral icterus. No injection or drainage. ENT: Nose without bleeding, purulent drainage or septal hematoma. Throat without erythema, tonsillar hypertrophy or exudate. Uvula midline. Airway patent. NECK: Trachea midline. No JVD or lymphadenopathy. Supple, nontender, no meningeal signs. CARDIOVASCULAR: Regular rate and rhythm without murmurs, gallops, or rubs. RESPIRATORY: Clear to auscultation. Breath sounds equal bilaterally. No wheezes , rales, or rhonchi. GASTROINTESTINAL: Abdomen soft, non-tender, nondistended. No hepato-splenomegaly , or palpable masses. No guarding. MUSCULOSKELETAL: Extremities without clubbing, cyanosis, or edema. No joint tenderness, effusion, or edema noted. No calf tenderness. NEUROLOGICAL: Awake and alert. Cranial nerves II through XII intact. Motor and sensory grossly within normal limits. Normal speech. Laboratory Laboratory Tests Test 11/20/17 23:50 White Blood Count 7.4 Red Blood Count 4.44 Hemoglobin 12.4 Hematocrit 37.5 Mean Corpuscular Volume 84.3 Mean Corpuscular Hemoglobin 27.8 Mean Corpuscular Hemoglobin Concent 33.0 Red Cell Distribution Width 14.0 Platelet Count 285 Mean Platelet Volume 9.0 Neutrophils (%) (Auto) 56.3 Lymphocytes (%) (Auto) 33.2 Monocytes (%) (Auto) 8.9 Eosinophils (%) (Auto) 1.1 Basophils (%) (Auto) 0.5 Neutrophils # (Auto) 4.2 Lymphocytes # (Auto) 2.5 Monocytes # (Auto) 0.7 Eosinophils # (Auto) 0.1 Basophils # (Auto) 0.0 CBC Comment DIFF FINAL Differential Comment Prothrombin Time 9.7 Prothromb Time International Ratio 1.0 Activated Partial Thromboplast Time 24.8 Urine Color LIGHT-YELLOW Urine Turbidity CLEAR Urine pH 6.5 Urine Specific [place] 1.014 Urine Protein 300 Urine Glucose (UA) TRACE Urine Ketones NEG Urine Occult Blood TRACE Urine Nitrite NEG Urine Bilirubin NEG Urine Urobilinogen LESS THAN 2.0 Urine Leukocyte Esterase NEG Urine RBC LESS THAN 1 Urine WBC 1 Urine Squamous Epithelial Cells <1 Urine Mucus FEW Microscopic Urinalysis Comment CULT NOT INDICATED Blood Urea Nitrogen 21 Creatinine 1.17 Random Glucose 216 Total Protein 7.6 Albumin 3.0 Calcium Level 8.7 Magnesium Level 1.6 Alkaline Phosphatase 71 Aspartate Amino Transf (AST/SGOT) 26 Alanine Aminotransferase (ALT/SGPT) 44 Total Bilirubin 0.2 Sodium Level 141 Potassium Level 4.1 Chloride Level 106 Carbon Dioxide Level 30.5 Anion Gap 5 Estimat Glomerular Filtration Rate 81 Total Creatine Kinase 451 Creatine Kinase MB 4.3 Creatine Kinase MB % 1.0 Troponin I 0.03 C-Reactive Protein 0.86 B-Type Natriuretic Peptide 7 Lipase 223 Result Diagram: 11/20/17234911/20/17 235 Caprini VTE Risk Assessment Caprini VTE Risk Assessment: No/Low Risk (score <= 1) Caprini Risk Assessment Model Point Value = 1 Point Value = 2 Point Value = 3 Point Value = 5 Age 41-60 Minor surgery BMI > 25 kg/m2 Swollen legs Varicose veins or History of unexplained or recurrent spontaneous Oral contraceptives or hormone replacement Sepsis (< 1 month) Serious lung disease, including pneumonia (< 1 month) Abnormal pulmonary function Acute myocardial infarction Congestive heart failure (< 1 month) History of inflammatory bowel disease Medical patient at bed rest Age 61-74 Arthroscopic surgery Major open surgery (> 45 min) Laparoscopic surgery (> 45 min) Malignancy Confined to bed (> 72 hours) Immobilizing plaster cast Central venous access Age >= 75 History of VTE Family history of VTE Factor V Leiden Prothrombin [id number] Lupus anticoagulant Anticardiolipin antibodies Elevated serum homocysteine Heparin-induced thrombocytopenia Other congenital or acquired thrombophilia Stroke (< 1 month) Elective arthroplasty Hip, pelvis, or leg fracture Acute spinal cord injury (< 1 month) Prophylaxis Regimen Total Risk Factor Score Risk Level Prophylaxis Regimen 0-1 Low Early ambulation 2 Moderate Order ONE of the following: *Sequential Compression Device (SCD) *Heparin 5000 units SQ BID 3-4 Higher Order ONE of the following medications: *Heparin 5000 units SQ TID *Enoxaparin/Lovenox 40 mg SQ daily (WT < 150 kg, CrCl > 30 mL/min) *Enoxaparin/Lovenox 30 mg SQ daily (WT < 150 kg, CrCl > 10-29 mL/min) *Enoxaparin/Lovenox 30 mg SQ BID (WT < 150 kg, CrCl > 30 mL/min) AND/OR *Sequential Compression Device (SCD) 5 or more Highest Order ONE of the following medications: *Heparin 5000 units SQ TID (Preferred with Epidurals) *Enoxaparin/Lovenox 40 mg SQ daily (WT < 150 kg, CrCl > 30 mL/min) *Enoxaparin/Lovenox 30 mg SQ daily (WT < 150 kg, CrCl > 10-29 mL/min) *Enoxaparin/Lovenox 30 mg SQ BID (WT < 150 kg, CrCl > 30 mL/min) AND *Sequential Compression Device (SCD) Assessment and Plan Assessment and Plan Assessment/plan: 1. Hypertensive crisis Patient is status post Vasotec and labetalol in the ED IV Hydralazine now x 1 Resume previous home medications of lisinopril, Procardia, hydrochlorothiazide Clonidine when necessary Monitor BP closely 2. Brain lesion Patient with previous evaluation of brain lesion with MRI that showed possible venous malformation or hemangioma and a CTA head that showed possible [employer] INSPECTOR lymphoma versus glioblastoma Patient was noncompliant with follow-up Previously evaluated by neurosurgery who recommended biopsy versus repeat MRI in [address] head showed an unchanged hyperdense lesion MRI pending Neurosurgery consulted, appreciate recommendations 3. Chest pain Initial troponin negative EKG showed normal sinus rhythm without ST segment elevations or depressions, repeat by ks ACS rule out pending; serial troponin/EKGs 4. Type 2 diabetes mellitus Holding home metformin Sliding scale insulin Monitor blood glucose 5. Shoulder and flank pain Likely musculoskeletal in origin CT abdomen/pelvis without evidence of hydronephrosis, UA negative, creatinine 1.17 which is baseline for patient Recommend outpatient f/u FEN Heart healthy diabetic diet Electrolytes: monitor and replete prn SCDs Physician Certification 2 Midnight Certification Type: Admission for Inpatient Services Order for Inpatient Services The services are ordered in accordance with Medicare regulations or non- Medicare payer requirements, as applicable. In the case of services not specified as inpatient-only, they are appropriately provided as inpatient services in accordance with the 2-midnight benchmark. Estimated LOS (days): 2 2 days is the estimated time the patient will need to remain in the hospital, assuming treatment plan goals are met and no additional complications. Post-Hospital Plan: Not yet determined Yue Delong MD Nov 21, 2017 03:25
[2017-11-21] MEDS ORDERED: hydrALAZINE HCL 20 MG/ML VIAL IV PUSH ONE (03:30)
[2017-11-21] MEDS: LISINOPRIL 20 MG TAB PO SCH ×2 (07:43→20:44)
[2017-11-21] MEDS: INSULIN ASPART SUPPLEMENTAL SCALE SQ SCH ×4 (07:44→20:44)
[2017-11-21] MEDS: NIFEdipine 30 MG SUSTAINED RELEASE TAB PO SCH (07:44)
[2017-11-21] MEDS: SODIUM CHLORIDE 0.9% FLUSH 10 ML FLUSH IV FLUSH SCH ×2 (07:44→20:44)
[2017-11-21] MEDS: HYDROCHLOROTHIAZIDE 25 MG TAB PO SCH (07:44)
[2017-11-21 08:23] LABS: TROPONIN I 0.02 NG/ML (0.02-0.05)
[2017-11-21] MEDS ORDERED: LORazepam 2 MG/ML VIAL IV PUSH SCH (09:30)
[2017-11-21] MEDS ORDERED: GADODIAMIDE PF 287 MG/ML 5 ML VIAL (for RAD MRI) IVCONTRAST ONE (11:53)
--- NOTE | 2017-11-21 12:41 | RADRPT ---
EXAM DATE/TIME: 11/21/2017 10:40 [facility] COMPARISON: No previous studies available for comparison. INDICATIONS : Mass. Abnormal CT. CONTRAST: 25 cc Omniscan (gadodiamide) IV MEDICAL HISTORY : Hypertension. Diabetes mellitus type 2. SURGICAL HISTORY : None. ENCOUNTER: Subsequent ACUITY: 2 day PAIN SCORE: 0/10 LOCATION: head. TECHNIQUE: Multiplanar, multisequence MRI of the brain was performed both prior to and following the administrat ion of paramagnetic contrast. FINDINGS: Comparison is April 2017. Again seen is an 8 mm nonenhancing lesion in the genu the corpus callosum. T here is surrounding susceptibility or blooming artifact characteristic of hemosiderin deposition. Radha chavez differential diagnosis is a benign vascular lesion such as cavernous angioma. No significant ken nge in size or appearance since April. Minimal white matter ischemic changes. No mass effect or shift. No hydrocephalus. No abnormal enhancing lesions in the brain. CONCLUSION: 1. 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 No change from April 2017. No mass effect or shift. Too Mckoy MD on November 21, 2017 at 12:34 Board Certified Radiologist. This report was verified electronically.
--- NOTE | 2017-11-21 12:43 | RADRPT ---
EXAM DATE/TIME: 11/21/2017 10:40 [facility] COMPARISON: No previous studies available for comparison. INDICATIONS : Aneurysm. Abnormal CT. MEDICAL HISTORY : Hypertension. Diabetes mellitus type 2. SURGICAL HISTORY : None. ENCOUNTER: Subsequent ACUITY: 2 day PAIN SCORE: 0/10 LOCATION: head. Please note a normal MRA of the brain does not entirely exclude the possibility of a small aneurysm, nor the possibility of distal intracranial vessel disease. TECHNIQUE: 3D time of flight MRA was performed. Source images, multiplanar STS MIP, and 3D volume MIP reconstru ctions were reviewed. FINDINGS: There is excellent visualization of the major intracranial arteries out to the second-order branch ve ssels. There is no evidence for aneurysm, vessel truncation or stenosis, and no evidence for vascula r malformation. CONCLUSION: Normal examination for a patient of this age. Too Mckoy MD on November 21, 2017 at 12:39 Board Certified Radiologist. This report was verified electronically.
--- NOTE | 2017-11-21 12:43 | PD.CONS ---
HPI Service neurosurgery Consult Requested By Dr Vance Reason for Consult Intracranial mass Primary Care Physician No Primary Care Physician History of Present Illness This is a 47-year-old male with a history of uncontrolled hypertension, type 2 diabetes mellitus and a brain lesion initially diagnosed in April of this year. He comes to the emergency department with severe right shoulder and left flank pain. He reports pain in his shoulder is "in his joint." He also complains of left-sided flank pain. He has a known right frontal per midline mass previously evaluated in April of this year as a possible venous malformation or hemangioma versus W[place] GLAZ[place] lymphoma or glioblastoma. The patient elected to not have the mass biopsied at that time and was supposed to follow-up as outpatient 3 months after discharge. He reports he was unable to do this secondary to losing his insurance. He denies any headaches at this time but does state he does have intermittent headaches. Patient was found to be hypertensive in the ED with a blood pressure of 250/ 111. He reports noncompliance with his blood pressure medications secondary to financial restraints and not having a PCP at this time. Neurosurgery consultation was requested Review of Systems Constitutional: DENIES: Diaphoretic episodes, Fatigue, Fever, Weight gain, Weight loss, Chills, Dizziness, Change in appetite, Night Sweats Endocrine: DENIES: Heat/cold intolerance, Polydipsia, Polyuria, Polyphagia Eyes: COMPLAINS OF: Blurred vision, Diplopia, Eye inflammation, Eye pain, Vision loss, Photosensitivity, Double Vision Ears, nose, mouth, throat: DENIES: Tinnitus, Hearing loss, Vertigo, Nasal discharge, Oral lesions, Throat pain, Hoarseness, Ear Pain, Running Nose, Epistaxis, Sinus Pain, Toothache, Odynophagia Respiratory: DENIES: Apneas, Cough, Snoring, Wheezing, Hemoptysis, Sputum production, Shortness of breath Cardiovascular: COMPLAINS OF: Chest pain, DENIES: Palpitations, Syncope, Dyspnea on Exertion, PND, Lower Extremity Edema, Orthopnea, Claudication Gastrointestinal: DENIES: Abdominal pain, Black stools, Bloody stools, Constipation, Diarrhea, Nausea, Vomiting, Difficulty Swallowing, Anorexia Genitourinary: DENIES: Sexual dysfunction, Urinary frequency, Urinary incontinence, Urgency, Hematuria, Dysuria, Nocturia, Penile Discharge, Testicular Pain, Testicular Swelling Musculoskeletal: COMPLAINS OF: Joint pain, Muscle aches, DENIES: Stiffness, Joint Swelling, Back pain, Neck pain Integumentary: DENIES: Abnormal pigmentation, Nail changes, Pruritus, Rash Hematologic/lymphatic: DENIES: Bruising, Lymphadenopathy Immunologic/allergic: DENIES: Eczema, Urticaria Neurologic: COMPLAINS OF: Headache, DENIES: Abnormal gait, Localized weakness, Paresthesias, Seizures, Speech Problems, Tremor, Poor Balance Psychiatric: DENIES: Anxiety, Confusion, Mood changes, Depression, Hallucinations, Agitation, Suicidal Ideation, Homicidal Ideation, Delusions Past Family Social History Allergies: Coded Allergies: No Known Allergies (Verified Allergy, Unknown, 11/21/17) Past Medical History Hypertensive Diabetes mellitus Brain lesion Past Surgical History No prior surgery Active Ordered Medications Current Medications Labetalol HCl (Trandate Inj) 10 mg ONCE ONCE IV PUSH Last administered on at 00:56; Start 11/21/17 at 00:45; Stop 11/21/17 at 00:46; Status DC Morphine Sulfate (Morphine Inj) 4 mg ONCE ONCE IV PUSH Last administered on 11/21/17at 00:56; Start 11/21/17 at 00:45; Stop 11/21/17 at 00:46; Status DC Ondansetron HCl (Zofran Inj) 4 mg ONCE ONCE IV PUSH Last administered on at 00:57; Start 11/21/17 at 00:45; Stop 11/21/17 at 00:46; Status DC Iohexol (Omnipaque 350 Inj) 100 ml STK-MED ONCE IVCONTRAST Last administered on 11/21/17at 01:26; Start 11/21/17 at 01:26; Stop 11/21/17 at 01:27; Status DC Nitroglycerin (Nitroglycerin 2% Oint) 1 inch ONCE ONCE TOPICAL Last administered on 11/21/17at 02:18; Start 11/21/17 at 02:15; Stop 11/21/17 at 02:16; Status DC Aspirin (Aspirin Chew) 324 mg ONCE ONCE CHEW Last administered on 11/21/17at 02: 18; Start 11/21/17 at 02:15; Stop 11/21/17 at 02:16; Status DC Enalaprilat (Vasotec Inj) 1.25 mg ONCE ONCE IV PUSH Last administered on at 02:18; Start 11/21/17 at 02:15; Stop 11/21/17 at 02:16; Status DC Sodium Chloride (NS Flush) 2 ml UNSCH PRN IV FLUSH FLUSH AFTER USING IV ACCESS ; Start 11/21/17 at 03:00 Sodium Chloride (NS Flush) 2 ml BID IV FLUSH Last administered on 11/21/17at 07: 44; Start 11/21/17 at 09:00 Clonidine (Catapres) 0.1 mg Q6H PRN PO SEE LABEL COMMENTS Last administered on 11/21/17at 11:58; Start 11/21/17 at 03:00 Lisinopril (Prinivil) 20 mg Q12HR PO Last administered on 11/21/17at 07:43; Start 11/21/17 at 09:00 Hydrochlorothiazide (Hydrodiuril) 25 mg DAILY PO Last administered on 11/21/17at 07:44; Start 11/21/17 at 09:00 Nifedipine (Procardia Xl) 30 mg DAILY PO Last administered on 11/21/17at 07:44; Start 11/21/17 at 09:00 Lorazepam (Ativan Inj) 1 mg ONCE ONCE IV PUSH Last administered on 11/21/17at 03 :44; Start 11/21/17 at 03:00; Stop 11/21/17 at 03:15; Status DC Dextrose (D50w (Vial) Inj) 50 ml UNSCH PRN IV PUSH HYPOGLYCEMIA-SEE COMMENTS; Start 11/21/17 at 03:00 Glucagon (Glucagon Inj) 1 mg UNSCH PRN OTHER HYPOGLYCEMIA-SEE COMMENTS; Start 11/21/17 at 03:00 Insulin Aspart (NovoLOG SUPPLEMENTAL SCALE) 1 ACHS SLIDING SCALE SQ Last administered on 11/21/17at 11:57; Start 11/21/17 at 08:00 Hydralazine HCl (Apresoline Inj) 10 mg ONCE ONCE IV PUSH Last administered on 11/21/17at 03:44; Start 11/21/17 at 03:30; Stop 11/21/17 at 03:31; Status DC Lorazepam (Ativan Inj) 1 mg ONCE IV PUSH Last administered on 11/21/17at 10:15; Start 11/21/17 at 09:30; Stop 11/21/17 at 12:00; Status DC Gadodiamide (Omniscan Pf Inj) 25 ml STK-MED ONCE IVCONTRAST Last administered on 11/21/17at 11:53; Start 11/21/17 at 11:53; Stop 11/21/17 at 11:54; Status DC Family History Family history was reviewed Mother of AL at the age of 38 Social History Denies alcohol, tobacco and illicit drugs Physical Exam Vital Signs Vital Signs Date Time Temp Pulse Resp B/P (MAP) Pulse Ox O2 Delivery O2 Flow Rate FiO2 11/21/17 12:27 70 11/21/17 12:16 97.7 69 18 182/64 (103) 99 11/21/17 09:12 71 11/21/17 08:14 97.9 76 18 160/76 (104) 99 11/21/17 05:00 98.5 70 20 145/65 (91) 100 11/21/17 04:28 11/21/17 03:45 66 16 181/87 (118) 100 Room Air 11/21/17 03:00 65 16 195/88 (123) 100 Room Air 11/21/17 02:30 64 15 208/95 (132) 99 Room Air 11/21/17 02:02 66 16 195/88 (123) 99 Room Air 11/21/17 01:34 68 16 209/95 (133) 99 Room Air 11/21/17 00:09 18 99 Room Air 11/20/17 23:38 70 19 250/111 (157) 99 Room Air 11/20/17 23:06 98.4 73 16 98 Room Air 11/20/17 23:06 219/105 (143) Physical Exam The patient is alert, awake and oriented to time, place and person. Speech is fluent. Higher cognitive functions are normal. Cranial nerve examination demonstrates the pupils to be equal, round, and reactive to light. Extra-ocular movements are intact. Facial motor and sensory function are normal and symmetrical. Gross hearing is intact, bilaterally. The uvula is midline and elevates symmetrically with the soft palate. Sternocleidomastoid and trapezius muscles have normal and symmetrical strength. Other cranial nerves are intact. Neck is soft and supple. Cervical spine has a full range of motion in anterior flexion, extension, lateral bending, and rotation without pain. There is no tenderness to palpation to the spinous processes or paraspinal muscles. Muscle testing reveals normal bulk and tone overall without rigidity, spasticity , fasciculations, or atrophy. Muscle strength is 5/5 in all muscle groups of both upper extremities including deltoid, biceps, triceps, brachioradialis, wrist extension and emt/dispatcher. In the lower extremities, strength is 5/5 in both iliopsoas, quadriceps, hamstrings, plantar flexion, dorsiflexion, and extensor hallicus longus. Sensory examination is intact to light touch and sharp/dull discrimination in both the upper and lower extremities, symmetrically. Deep tendon reflexes are 2+ and symmetrical in the biceps, triceps, and brachioradialis, bilaterally, in the upper extremities. In the lower extremities , the patellar and Achilles are 2+, bilaterally. There is a bilateral plantar flexion response. Hoffmanns sign is negative. There is no clonus or other abnormal reflexes noted. Cerebellar examination is intact to [id number] test, rapid rhythmic alternating motion. There is no dysmetria, dysdiadochokinesia, truncal ataxia, or tremor. Laboratory Laboratory Tests Test 11/20/17 23:50 11/21/17 07:03 White Blood Count 7.4 Red Blood Count 4.44 Hemoglobin 12.4 Hematocrit 37.5 Mean Corpuscular Volume 84.3 Mean Corpuscular Hemoglobin 27.8 Mean Corpuscular Hemoglobin Concent 33.0 Red Cell Distribution Width 14.0 Platelet Count 285 Mean Platelet Volume 9.0 Neutrophils (%) (Auto) 56.3 Lymphocytes (%) (Auto) 33.2 Monocytes (%) (Auto) 8.9 Eosinophils (%) (Auto) 1.1 Basophils (%) (Auto) 0.5 Neutrophils # (Auto) 4.2 Lymphocytes # (Auto) 2.5 Monocytes # (Auto) 0.7 Eosinophils # (Auto) 0.1 Basophils # (Auto) 0.0 CBC Comment DIFF FINAL Differential Comment Prothrombin Time 9.7 Prothromb Time International Ratio 1.0 Activated Partial Thromboplast Time 24.8 Urine Color LIGHT-YELLOW Urine Turbidity CLEAR Urine pH 6.5 Urine Specific [place] 1.014 Urine Protein 300 Urine Glucose (UA) TRACE Urine Ketones NEG Urine Occult Blood TRACE Urine Nitrite NEG Urine Bilirubin NEG Urine Urobilinogen LESS THAN 2.0 Urine Leukocyte Esterase NEG Urine RBC LESS THAN 1 Urine WBC 1 Urine Squamous Epithelial Cells <1 Urine Mucus FEW Microscopic Urinalysis Comment CULT NOT INDICATED Blood Urea Nitrogen 21 Creatinine 1.17 Random Glucose 216 Total Protein 7.6 Albumin 3.0 Calcium Level 8.7 Magnesium Level 1.6 Alkaline Phosphatase 71 Aspartate Amino Transf (AST/SGOT) 26 Alanine Aminotransferase (ALT/SGPT) 44 Total Bilirubin 0.2 Sodium Level 141 Potassium Level 4.1 Chloride Level 106 Carbon Dioxide Level 30.5 Anion Gap 5 Estimat Glomerular Filtration Rate 81 Total Creatine Kinase 451 296 Creatine Kinase MB 4.3 Creatine Kinase MB % 1.0 Troponin I 0.03 0.02 C-Reactive Protein 0.86 B-Type Natriuretic Peptide 7 Lipase 223 Result Diagram: 11/20/17234911/20/172349 Imaging Last [address] 11/21/1740 Signed Impressions: Service Date/Time: Tuesday, November 21, 2017 01:19 - CONCLUSION: 1. Unchanged hyperdense lesion involving anterior corpus callosum previously evaluated with MRI. 2. No acute intracranial abnormality. Yvan Spivey Jr., MD Abdomen/Pelvis CT 11/21/1740 Signed Impressions: Service Date/Time: Tuesday, November 21, 2017 01:22 - CONCLUSION: 1. No acute abnormality. 2. Hepatic steatosis. Yvan Spivey Jr., MD Chest X-Ray 11/20/172357 Signed Impressions: Service Date/Time: Tuesday, November 21, 2017 00:05 - CONCLUSION: 1. Mild cardiomegaly. Clear lungs. Yvan Spivey Jr., MD Assessment and Plan Assessment and Plan Caprini VTE Risk Assessment Caprini VTE Risk Assessment Caprini VTE Risk Assessment: No/Low Risk (score <= 1) Caprini Risk Assessment Model Point Value = 1 Point Value = 2 Point Value = 3 Point Value = 5 Age 41-60 Minor surgery BMI > 25 kg/m2 Swollen legs Varicose veins or History of unexplained or recurrent spontaneous Oral contraceptives or hormone replacement Sepsis (< 1 month) Serious lung disease, including pneumonia (< 1 month) Abnormal pulmonary function Acute myocardial infarction Congestive heart failure (< 1 month) History of inflammatory bowel disease Medical patient at bed rest Age 61-74 Arthroscopic surgery Major open surgery (> 45 min) Laparoscopic surgery (> 45 min) Malignancy Confined to bed (> 72 hours) Immobilizing plaster cast Central venous access Age >= 75 History of VTE Family history of VTE Factor V Leiden Prothrombin [id number] Lupus anticoagulant Anticardiolipin antibodies Elevated serum homocysteine Heparin-induced thrombocytopenia Other congenital or acquired thrombophilia Stroke (< 1 month) Elective arthroplasty Hip, pelvis, or leg fracture Acute spinal cord injury (< 1 month) Prophylaxis Regimen Total Risk Factor Score Risk Level Prophylaxis Regimen 0-1 Low Early ambulation 2 Moderate Order ONE of the following: *Sequential Compression Device (SCD) *Heparin 5000 units SQ BID 3-4 Higher Order ONE of the following medications: *Heparin 5000 units SQ TID *Enoxaparin/Lovenox 40 mg SQ daily (WT < 150 kg, CrCl > 30 mL/min) *Enoxaparin/Lovenox 30 mg SQ daily (WT < 150 kg, CrCl > 10-29 mL/min) *Enoxaparin/Lovenox 30 mg SQ BID (WT < 150 kg, CrCl > 30 mL/min) AND/OR *Sequential Compression Device (SCD) 5 or more Highest Order ONE of the following medications: *Heparin 5000 units SQ TID (Preferred with Epidurals) *Enoxaparin/Lovenox 40 mg SQ daily (WT < 150 kg, CrCl > 30 mL/min) *Enoxaparin/Lovenox 30 mg SQ daily (WT < 150 kg, CrCl > 10-29 mL/min) *Enoxaparin/Lovenox 30 mg SQ BID (WT < 150 kg, CrCl > 30 mL/min) AND *Sequential Compression Device (SCD) Attending Statement Brain lesion I discussed with him the differential diagnosis as well as the alternatives of treatment, including the possibility of tactic biopsy of the lesion area I recommend to obtain a follow up MRI to be compared with prior MRI of the brain, to determining whether the lesion is growing Mr Mehta was noncompliant with follow-up Hypertensive crisis. he was given Vasotec and labetalol IV Hydralazine now as needed Continue home medications, lisinopril, Procardia, hydrochlorothiazide Clonidine when necessary Monitor BP closely Chest pain. Initial troponin negative EKG showed normal sinus rhythm without ST segment elevations or depressions serial troponin/EKGs to rule out ACS Type 2 diabetes mellitus Hold home metformin Sliding scale insulin subcutaneous Monitor blood glucose Shoulder and flank pain Likely musculoskeletal in origin CT abdomen/pelvis negative Pulmonary. aggressive pulmonary toilette, nasotracheal suction, and breathing treatments with nebulizers. PT and OT eval Nutrition. Tolerating Oral diet Renal. monitor closely urine output, BUN and creatinine ID monitor for signs of infection Protonix for stress ulcer prophylaxis Anand hose and SCD's for DVT prophylaxis Further recommendations will be provided depending on the patient's clinical evaluation and follow up studies. Miguelito Romero MD Nov 21, 2017 12:43
[2017-11-21 13:34] LABS: TROPONIN I 0.02 NG/ML (0.02-0.05)
[2017-11-21] MEDS ORDERED: cloNIDine HCL 0.2 MG TAB PO PRN (17:00)
--- NOTE | 2017-11-21 17:25 | EKG ---
Date Performed: 11/21/2017 Time Performed: 00:16:53 PTAGE: 47 years EKG: Sinus rhythm NONSPECIFIC T-WAVE ABNORMALITY BORDERLINE ECG PREVIOUS TRACING 02/21/16 @ 07.02.18 Compared to prior tracing no significant change DOCTOR: Marylin Barr Interpretating Date/Time 11/21/2017 17:24:07
--- NOTE | 2017-11-21 17:25 | EKG ---
Date Performed: 11/21/2017 Time Performed: 11:26:00 PTAGE: 47 years EKG: Sinus rhythm NONSPECIFIC T-WAVE ABNORMALITY BORDERLINE ECG PREVIOUS TRACING : 11/21/2017 00.16 Compared to prior tracing no significant change DOCTOR: Marylin Barr Interpretating Date/Time 11/21/2017 17:24:41
[2017-11-22] VITALS (11 sets, daily range): BP systolic 134–183; BP diastolic 74–93; PULSE 64–86; RESP 18–20; TEMP 97.3–98.8; O2SAT 95–100
[2017-11-22 06:25] LABS: AUTOMATED NEUTROPHIL # 3.9 TH/MM3 (1.8-7.7); BASOPHIL % 0.4 % (0.0-2.0); EOSINOPHIL # 0.1 TH/MM3 (0-0.4); HEMOGLOBIN 11.8 GM/DL (13.0-17.0); LYMPH % 31.8 % (9.0-44.0); LYMPHOCYTE # 2.2 TH/MM3 (1.0-4.8); MEAN CELL VOLUME 83.6 FL (80.0-100.0); MEAN CORPUSCULAR HEMOGLOBIN 27.5 PG (27.0-34.0); MEAN CORPUSCULAR HGB CONC 32.9 % (32.0-36.0); MEAN PLATELET VOLUME 8.8 FL (7.0-11.0); MONO % 9.5 % (0.0-8.0); MONOCYTE # 0.7 TH/MM3 (0-0.9); NEUT % 56.3 % (16.0-70.0); PLATELET COUNT 260 TH/MM3 (150-450); WHITE BLOOD COUNT 6.9 TH/MM3 (4.0-11.0)
[2017-11-22 06:49] LABS: BICARBONATE 29.5 MEQ/L (21.0-32.0); CALCIUM 8.8 MG/DL (8.5-10.1); CREATININE 1.13 MG/DL (0.60-1.30)
[2017-11-22] MEDS: LISINOPRIL 20 MG TAB PO SCH ×2 (08:38→21:04)
[2017-11-22] MEDS: NIFEdipine 30 MG SUSTAINED RELEASE TAB PO SCH (08:39)
[2017-11-22] MEDS: HYDROCHLOROTHIAZIDE 25 MG TAB PO SCH (08:39)
[2017-11-22] MEDS: INSULIN ASPART SUPPLEMENTAL SCALE SQ SCH ×4 (08:40→21:00)
[2017-11-22] MEDS: SODIUM CHLORIDE 0.9% FLUSH 10 ML FLUSH IV FLUSH SCH ×2 (08:42→21:00)
--- NOTE | 2017-11-22 11:28 | HHI.PR ---
Subjective Remarks The patient says that his left flank has been painful for the past 2 weeks. He says he started to experience that pain at work and it is worse with movement. He also mentioned his right shoulder pain started at that time and is also associated with movement. He says he ran out of blood pressure medications about 30 days ago. Discussed with nursing. Objective Vitals Vital Signs Date Time Temp Pulse Resp B/P (MAP) Pulse Ox O2 Delivery O2 Flow Rate FiO2 11/22/17 08:40 74 11/22/17 08:04 97.8 71 20 182/86 (118) 95 11/22/17 05:12 65 11/22/17 04:00 98.8 75 18 134/83 (100) 95 11/22/17 01:05 67 11/22/17 00:00 97.3 83 18 142/77 (98) 97 11/21/17 20:00 98.8 71 18 166/75 (105) 98 11/21/17 17:00 72 11/21/17 16:52 97.6 79 19 136/66 (89) 99 11/21/17 12:27 70 11/21/17 12:16 97.7 69 18 182/64 (103) 99 I/O 11/21/17 11/21/17 11/21/17 11/22/17 11/22/17 11/22/17 07:00 15:00 23:00 07:00 15:00 23:00 Intake Total 480 ml Balance 480 ml Intake Oral 480 ml # Voids 2 5 # Bowel Movements 0 Result Diagram: 11/22/17 0610 11/22/17 0610 Imaging Last Impressions Head CT 11/21/1740 Signed Impressions: Service Date/Time: Tuesday, November 21, 2017 01:19 - CONCLUSION: 1. Unchanged hyperdense lesion involving anterior corpus callosum previously evaluated with MRI. 2. No acute intracranial abnormality. Yvan Spivey Jr., MD Abdomen/Pelvis CT 11/21/1740 Signed Impressions: Service Date/Time: Tuesday, November 21, 2017 01:22 - CONCLUSION: 1. No acute abnormality. 2. Hepatic steatosis. Yvan Spivey Jr., MD Head Magnetic Resonance Angiography 11/21/17 0000 Signed Impressions: Service Date/Time: Tuesday, November 21, 2017 10:40 - CONCLUSION: Normal examination for a patient of this age. Too Mckoy MD Brain MRI 11/21/17 0000 Signed Impressions: Service Date/Time: Tuesday, November 21, 2017 10:40 - CONCLUSION: 1. 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 No change from April 2017. No mass effect or shift. Too Mckoy MD Chest X-Ray 11/20/17 2971 Signed Impressions: Service Date/Time: Tuesday, November 21, 2017 00:05 - CONCLUSION: 1. Mild cardiomegaly. Clear lungs. Yvan Spivey Jr., MD Objective Remarks GENERAL: Obese male in NAD. SKIN: No rashes, ecchymoses or lesions. Cool and dry. HEAD: Atraumatic. Normocephalic. No temporal or scalp tenderness. EYES: Pupils equal round and reactive. Extraocular motions intact. No scleral icterus. No injection or drainage. ENT: Nose without bleeding, purulent drainage or septal hematoma. Throat without erythema, tonsillar hypertrophy or exudate. Uvula midline. Airway patent. NECK: Trachea midline. No JVD or lymphadenopathy. Supple, nontender, no meningeal signs. CARDIOVASCULAR: Regular rate and rhythm without murmurs, gallops, or rubs. RESPIRATORY: Clear to auscultation. Breath sounds equal bilaterally. No wheezes , rales, or rhonchi. GASTROINTESTINAL: Abdomen soft, non-tender, nondistended. No hepato-splenomegaly , or palpable masses. No guarding. Left sided flank tenderness, no CVA tenderness. MUSCULOSKELETAL: Right shoulder tender to palpation anteriorly. Restricted ROM s /t pain. 1+ edema in the lower extremities. NEUROLOGICAL: Awake and alert. Cranial nerves II through XII intact. Motor and sensory grossly within normal limits. Normal speech. PSYCH: Mood and affect appropriate. Medications and IVs Current Medications Medications (Trade) Dose Ordered Sig/Jatin Route Start Time Stop Time Status Last Admin (NS Flush) 2 ml UNSCH PRN IV FLUSH 11/21/17 03:00 (NS Flush) 2 ml BID IV FLUSH 11/21/17 09:00 11/22/17 08:42 (Prinivil) 20 mg Q12HR PO 11/21/17 09:00 11/22/17 08:38 (Hydrodiuril) 25 mg DAILY PO 11/21/17 09:00 11/22/17 08:39 (Procardia Xl) 30 mg DAILY PO 11/21/17 09:00 11/22/17 08:39 (D50w (Vial) Inj) 50 ml UNSCH PRN IV PUSH 11/21/17 03:00 (Glucagon Inj) 1 mg UNSCH PRN OTHER 11/21/17 03:00 (NovoLOG SUPPLEMENTAL SCALE) 1 ACHS SLIDING SCALE SQ 11/21/17 08:00 11/22/17 08:40 (Catapres) 0.2 mg Q6H PRN PO 11/21/17 17:00 A/P Assessment and Plan Hypertensive crisis Patient is status post Vasotec and labetalol in the ED. He ran out of his home meds 30 days ago. - Resume previous home medications of lisinopril, Procardia. Increase hydrochlorothiazide to 50 mg daily. - Clonidine when necessary. Brain lesion Patient with previous evaluation of brain lesion with MRI that showed possible venous malformation or hemangioma and a CTA head that showed possible [employer] lymphoma versus glioblastoma. Patient was noncompliant with follow-up. Previously evaluated by neurosurgery who recommended biopsy versus repeat MRI in 3 months. Repeat MRI stable. - follow up with neurosurgery. Chest pain He has shoulder pain and flank pain. Not complaining of chest pain. Trops flat. EKG showed normal sinus rhythm without ST segment elevations or depressions. - treat shoulder and flank pain Type 2 diabetes mellitus Well controlled. - Holding home metformin. - Sliding scale insulin. Shoulder and flank pain Likely musculoskeletal in origin as he started to develop them while working and pain is worse with movement. CT abdomen/pelvis negative. - shoulder x ray. - OT for right shoulder pain. - pain control with a bowel regimen. - Flexeril. PPx: Jhon Ivory DO Nov 22, 2017 11:28
[2017-11-22] MEDS ORDERED: CYCLOBENZAPRINE HCL 10 MG TAB PO PRN (11:30)
[2017-11-22] MEDS ORDERED: CYCLOBENZAPRINE HCL 10 MG TAB PO ONE (11:30)
[2017-11-22] MEDS ORDERED: HYDROCHLOROTHIAZIDE 25 MG TAB PO ONE (12:00)
[2017-11-22] MEDS: DOCUSATE SODIUM 50 MG/SENNA 8.6 MG TAB PO SCH ×2 (12:24→21:00)
--- NOTE | 2017-11-22 13:30 | RADRPT ---
EXAM DATE/TIME: 11/22/2017 13:04 [facility] COMPARISON: No previous studies available for comparison. INDICATIONS : Right shoulder pain. MEDICAL HISTORY : Hypertension. Diabetes mellitus type 2. SURGICAL HISTORY : None. ENCOUNTER: Subsequent ACUITY: 4 - 6 days PAIN SCORE: 8/10 LOCATION: Right Shoulder. FINDINGS: There are degenerative changes at the AC joint with marked subacromial spurring. Glenoid intact. No fracture CONCLUSION: Significant subacromial spurring, no fracture Ry Preston MD FACR on November 22, 2017 at 13:26 Board Certified Radiologist. This report was verified electronically.
--- NOTE | 2017-11-22 13:40 | HHI.NSPN ---
Note Status Status: Progress Note Interval History Interval History This is a 47-year-old male with a history of uncontrolled hypertension, type 2 diabetes mellitus and a brain lesion initially diagnosed in April of this year. He comes to the emergency department with severe right shoulder and left flank pain. He reports pain in his shoulder is "in his joint." He also complains of left-sided flank pain. He has a known right frontal per midline mass previously evaluated in April of this year as a possible venous malformation or hemangioma versus SCIENTIFIC SYSTEMS ANALYST lymphoma or glioblastoma. The patient elected to not have the mass biopsied at that time and was supposed to follow-up as outpatient 3 months after discharge. He reports he was unable to do this secondary to losing his insurance. He denies any headaches at this time but does state he does have intermittent headaches. Patient was found to be hypertensive in the ED with a blood pressure of 250/ 111. He reports noncompliance with his blood pressure medications secondary to financial restraints and not having a PCP at this time. Neurosurgery consultation was requested 11/22/17: reports to be doing ok, dw patient regarding f/u MRIs, he requests nonsurgical management. Labs, Micro, & Vital Signs Results Date Time Temp Pulse Resp B/P (MAP) Pulse Ox O2 Delivery O2 Flow Rate FiO2 11/22/17 12:06 97.8 71 20 183/93 (123) 100 11/22/17 11:32 97.8 71 20 183/93 (123) 100 11/22/17 08:40 74 11/22/17 08:04 97.8 71 20 182/86 (118) 95 11/22/17 05:12 65 11/22/17 04:00 98.8 75 18 134/83 (100) 95 11/22/17 01:05 67 11/22/17 00:00 97.3 83 18 142/77 (98) 97 11/21/17 20:00 98.8 71 18 166/75 (105) 98 11/21/17 17:00 72 11/21/17 16:52 97.6 79 19 136/66 (89) 99 Constitutional Vital Signs Date Time Temp Pulse Resp B/P (MAP) Pulse Ox O2 Delivery O2 Flow Rate FiO2 11/22/17 12:06 97.8 71 20 183/93 (123) 100 11/22/17 11:32 97.8 71 20 183/93 (123) 100 11/22/17 08:40 74 11/22/17 08:04 97.8 71 20 182/86 (118) 95 11/22/17 05:12 65 11/22/17 04:00 98.8 75 18 134/83 (100) 95 11/22/17 01:05 67 11/22/17 00:00 97.3 83 18 142/77 (98) 97 11/21/17 20:00 98.8 71 18 166/75 (105) 98 11/21/17 17:00 72 11/21/17 16:52 97.6 79 19 136/66 (89) 99 Physical Exam The patient is alert, awake and oriented to time, place and person. Speech is fluent. Higher cognitive functions are normal. Cranial nerve examination demonstrates the pupils to be equal, round, and reactive to light. Extra-ocular movements are intact. Facial motor and sensory function are normal and symmetrical. Gross hearing is intact, bilaterally. The uvula is midline and elevates symmetrically with the soft palate. Sternocleidomastoid and trapezius muscles have normal and symmetrical strength. Other cranial nerves are intact. Neck is soft and supple. Cervical spine has a full range of motion in anterior flexion, extension, lateral bending, and rotation without pain. There is no tenderness to palpation to the spinous processes or paraspinal muscles. Muscle testing reveals normal bulk and tone overall without rigidity, spasticity , fasciculations, or atrophy. Muscle strength is 5/5 in all muscle groups of both upper extremities including deltoid, biceps, triceps, brachioradialis, wrist extension and fire control officer. In the lower extremities, strength is 5/5 in both iliopsoas, quadriceps, hamstrings, plantar flexion, dorsiflexion, and extensor hallicus longus. Sensory examination is intact to light touch and sharp/dull discrimination in both the upper and lower extremities, symmetrically. Deep tendon reflexes are 2+ and symmetrical in the biceps, triceps, and brachioradialis, bilaterally, in the upper extremities. In the lower extremities , the patellar and Achilles are 2+, bilaterally. There is a bilateral plantar flexion response. Hoffmanns sign is negative. There is no clonus or other abnormal reflexes noted. Cerebellar examination is intact to [id number] test, rapid rhythmic alternating motion. There is no dysmetria, dysdiadochokinesia, truncal ataxia, or tremor. Medications Current Medications Current Medications Medications (Trade) Dose Ordered Sig/Jatin Route PRN Reason Start Time Stop Time Status Last Admin Dose Admin Sodium Chloride (NS Flush) 2 ml UNSCH PRN IV FLUSH FLUSH AFTER USING IV ACCESS 11/21/17 03:00 Sodium Chloride (NS Flush) 2 ml BID IV FLUSH 11/21/17 09:00 11/22/17 08:42 Lisinopril (Prinivil) 20 mg Q12HR PO 11/21/17 09:00 11/22/17 08:38 Nifedipine (Procardia Xl) 30 mg DAILY PO 11/21/17 09:00 11/22/17 08:39 Dextrose (D50w (Vial) Inj) 50 ml UNSCH PRN IV PUSH HYPOGLYCEMIA-SEE COMMENTS 11/21/17 03:00 Glucagon (Glucagon Inj) 1 mg UNSCH PRN OTHER HYPOGLYCEMIA-SEE COMMENTS 11/21/17 03:00 Insulin Aspart (NovoLOG SUPPLEMENTAL SCALE) 1 ACHS SLIDING SCALE SQ 11/21/17 08:00 11/22/17 12:31 Clonidine (Catapres) 0.2 mg Q6H PRN PO SBP>180, DBP>110 11/21/17 17:00 Hydrochlorothiazide (Hydrodiuril) 50 mg DAILY PO 11/23/17 09:00 Oxycodone HCl (Roxicodone) 5 mg Q4H PRN PO pain 3-5 11/22/17 11:30 Oxycodone HCl (Roxicodone) 10 mg Q4H PRN PO PAIN 6-10 11/22/17 12:00 11/22/17 12:24 Cyclobenzaprine HCl (Flexeril) 10 mg Q8H PRN PO muscle spasm 11/22/17 11:30 Pantoprazole Sodium (Protonix) 40 mg DAILY PO 11/22/17 12:00 Senna/Docusate Sodium (Ashley-Colace) 1 tab BID PO 11/22/17 12:00 11/22/17 12:24 Medical Decision Making MDM Remarks 47 y/o male with brain mass follow up MRI Brain with stable 8 mm nonenhancing lesion, prob hemosiderin deposition, MRA head and previous CTA Head negative for aneurysm or AVMs Hypertensive crisis Plan Plan Remarks MRI Brain reviewed to be nonenhancing lesion, no evidence of aneurysm or AVM on MRA again discussed with Mr. Mehta the alternatives of treatment, including the possibility of stereotactic biopsy of the lesion vs nonsurgical management, patient requests nonsurgical management at this time cont medical management Yani Ding Nov 22, 2017 13:40
[2017-11-22] MEDS: PANTOPRAZOLE SOD 40 MG DELAYED RELEASE TAB PO SCH (13:58)
[2017-11-23] VITALS (10 sets, daily range): BP systolic 132–187; BP diastolic 70–88; PULSE 60–114; RESP 16–20; TEMP 97.3–98.3; O2SAT 97–99
[2017-11-23] MEDS: NIFEdipine 30 MG SUSTAINED RELEASE TAB PO SCH (07:44)
[2017-11-23] MEDS: LISINOPRIL 20 MG TAB PO SCH ×2 (07:44→22:01)
[2017-11-23] MEDS: HYDROCHLOROTHIAZIDE 50 MG TAB PO SCH (07:44)
[2017-11-23] MEDS: PANTOPRAZOLE SOD 40 MG DELAYED RELEASE TAB PO SCH (07:45)
[2017-11-23] MEDS: DOCUSATE SODIUM 50 MG/SENNA 8.6 MG TAB PO SCH ×2 (07:45→21:00)
[2017-11-23] MEDS: INSULIN ASPART SUPPLEMENTAL SCALE SQ SCH ×4 (08:00→21:00)
[2017-11-23] MEDS: SODIUM CHLORIDE 0.9% FLUSH 10 ML FLUSH IV FLUSH SCH ×2 (09:00→21:00)
[2017-11-23] MEDS ORDERED: NIFEdipine 30 MG SUSTAINED RELEASE TAB PO ONE (09:30)
--- NOTE | 2017-11-23 09:44 | HHI.PR ---
Subjective Remarks The patient requested antibiotics for his left flank pain. He denies any blood in the urine or stool. He says the pain in his right shoulder is improved. He says the pain in his left flank gets worse with movement. Discussed with nursing at the bedside. Objective Vitals Vital Signs Date Time Temp Pulse Resp B/P (MAP) Pulse Ox O2 Delivery O2 Flow Rate FiO2 11/23/17 07:35 97.8 66 20 187/86 (119) 99 11/23/17 05:40 65 11/23/17 04:00 97.4 72 16 170/74 (106) 98 11/23/17 03:04 60 11/23/17 01:14 66 11/23/17 00:12 98.2 65 20 181/80 (113) 99 11/22/17 20:00 97.3 64 18 177/74 (108) 99 11/22/17 17:20 20 11/22/17 16:31 97.7 65 20 152/88 (109) 98 11/22/17 12:06 97.8 71 20 183/93 (123) 100 11/22/17 12:00 86 11/22/17 11:32 97.8 71 20 183/93 (123) 100 I/O 11/22/17 11/22/17 11/22/17 11/23/17 11/23/17 11/23/17 07:00 15:00 23:00 07:00 15:00 23:00 Intake Total 960 ml Balance 960 ml Intake Oral 960 ml # Voids 5 3 4 # Bowel Movements 1 Result Diagram: 11/22/17 0610 11/22/17 0610 Imaging Last Impressions Shoulder X-Ray 11/22/17 0000 Signed Impressions: Service Date/Time: Wednesday, November 22, 2017 13:04 - CONCLUSION: Significant subacromial spurring, no fracture Ry Preston MD FACR Head CT 11/21/1740 Signed Impressions: Service Date/Time: Tuesday, November 21, 2017 01:19 - CONCLUSION: 1. Unchanged hyperdense lesion involving anterior corpus callosum previously evaluated with MRI. 2. No acute intracranial abnormality. vYan Spivey Jr., MD Abdomen/Pelvis CT 11/21/1740 Signed Impressions: Service Date/Time: Tuesday, November 21, 2017 01:22 - CONCLUSION: 1. No acute abnormality. 2. Hepatic steatosis. Yvan Spivey Jr., MD Head Magnetic Resonance Angiography 11/21/17 0000 Signed Impressions: Service Date/Time: Tuesday, November 21, 2017 10:40 - CONCLUSION: Normal examination for a patient of this age. Too Mckoy MD Brain MRI 11/21/17 0000 Signed Impressions: Service Date/Time: Tuesday, November 21, 2017 10:40 - CONCLUSION: 1. 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 No change from April 2017. No mass effect or shift. Too Mckoy MD Chest X-Ray 11/20/17 3300 Signed Impressions: Service Date/Time: Tuesday, November 21, 2017 00:05 - CONCLUSION: 1. Mild cardiomegaly. Clear lungs. Yvan Spivey Jr., MD Objective Remarks GENERAL: Obese male in NAD. SKIN: No rashes, ecchymoses or lesions. Cool and dry. HEAD: Atraumatic. Normocephalic. No temporal or scalp tenderness. EYES: Pupils equal round and reactive. Extraocular motions intact. No scleral icterus. No injection or drainage. ENT: Nose without bleeding, purulent drainage or septal hematoma. Throat without erythema, tonsillar hypertrophy or exudate. Uvula midline. Airway patent. NECK: Trachea midline. No JVD or lymphadenopathy. Supple, nontender, no meningeal signs. CARDIOVASCULAR: Regular rate and rhythm without murmurs, gallops, or rubs. RESPIRATORY: Clear to auscultation. Breath sounds equal bilaterally. No wheezes , rales, or rhonchi. GASTROINTESTINAL: Abdomen soft, non-tender, nondistended. No hepato-splenomegaly , or palpable masses. No guarding. Left sided flank tenderness, no CVA tenderness. MUSCULOSKELETAL: Right shoulder tender to palpation anteriorly. Restricted ROM s /t pain. 1+ edema in the lower extremities. Tenderness to palpation of left lower back. NEUROLOGICAL: Awake and alert. Cranial nerves II through XII intact. Motor and sensory grossly within normal limits. Normal speech. PSYCH: Mood and affect appropriate. Medications and IVs Current Medications Medications (Trade) Dose Ordered Sig/Jatin Route Start Time Stop Time Status Last Admin (NS Flush) 2 ml UNSCH PRN IV FLUSH 11/21/17 03:00 (NS Flush) 2 ml BID IV FLUSH 11/21/17 09:00 11/23/17 09:00 (Prinivil) 20 mg Q12HR PO 11/21/17 09:00 11/23/17 07:44 (D50w (Vial) Inj) 50 ml UNSCH PRN IV PUSH 11/21/17 03:00 (Glucagon Inj) 1 mg UNSCH PRN OTHER 11/21/17 03:00 (NovoLOG SUPPLEMENTAL SCALE) 1 ACHS SLIDING SCALE SQ 11/21/17 08:00 11/22/17 21:00 (Catapres) 0.2 mg Q6H PRN PO 11/21/17 17:00 (Hydrodiuril) 50 mg DAILY PO 11/23/17 09:00 11/23/17 07:44 (Roxicodone) 5 mg Q4H PRN PO 11/22/17 11:30 (Roxicodone) 10 mg Q4H PRN PO 11/22/17 12:00 11/23/17 06:47 (Flexeril) 10 mg Q8H PRN PO 11/22/17 11:30 (Protonix) 40 mg DAILY PO 11/22/17 12:00 11/23/17 07:45 (Ashley-Colace) 1 tab BID PO 11/22/17 12:00 11/23/17 07:45 (Procardia Xl) 60 mg DAILY PO 11/24/17 09:00 A/P Assessment and Plan Hypertensive crisis Patient is status post Vasotec and labetalol in the ED. He ran out of his home meds 30 days ago. - Resume previous home medications of lisinopril, Procardia. Increase hydrochlorothiazide to 50 mg daily. Increase Procardia to 60 mg daily. - Clonidine when necessary. 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 Patient was noncompliant with follow-up. Previously evaluated by neurosurgery who recommended biopsy versus repeat MRI in 3 months. Repeat MRI stable. - follow up with neurosurgery. The pt prefers nonoperative management. Chest pain He has shoulder pain and flank pain. Not complaining of chest pain. Trops flat. EKG showed normal sinus rhythm without ST segment elevations or depressions. - treat shoulder and flank pain Type 2 diabetes mellitus Well controlled. - Holding home metformin. - Sliding scale insulin. Shoulder and flank pain Likely musculoskeletal in origin as he started to develop them while working and pain is worse with movement. CT abdomen/pelvis negative. Shoulder x ray with significant subacromial spurring. Shoulder pain is improved. The pt has lower left back pain on exam, negative SLR on that side. - OT for right shoulder pain. - physical therapy. - pain control with a bowel regimen. - standing Valium and Toradol for now. PPx: SCDs Jhon Vance DO Nov 23, 2017 09:44
[2017-11-23] MEDS: DIAZEPAM 5 MG TAB PO SCH ×3 (10:22→17:46)
[2017-11-23] MEDS: KETOROLAC TROMETHAMINE 30 MG/ML (IVP) VIAL IV PUSH SCH ×3 (10:23→22:06)
--- NOTE | 2017-11-23 14:34 | HHI.NSPN ---
(Yani Ding) Note Status Status: Progress Note (Yani Ding) Interval History Interval History This is a 47-year-old male with a history of uncontrolled hypertension, type 2 diabetes mellitus and a brain lesion initially diagnosed in April of this year. He comes to the emergency department with severe right shoulder and left flank pain. He reports pain in his shoulder is "in his joint." He also complains of left-sided flank pain. He has a known right frontal per midline mass previously evaluated in April of this year as a possible venous malformation or hemangioma versus MOOSE HUNTER lymphoma or glioblastoma. The patient elected to not have the mass biopsied at that time and was supposed to follow-up as outpatient 3 months after discharge. He reports he was unable to do this secondary to losing his insurance. He denies any headaches at this time but does state he does have intermittent headaches. Patient was found to be hypertensive in the ED with a blood pressure of 250/ 111. He reports noncompliance with his blood pressure medications secondary to financial restraints and not having a PCP at this time. Neurosurgery consultation was requested 11/22/17: reports to be doing ok, dw patient regarding f/u MRIs, he requests nonsurgical management. 11/23/17: no neurological changes, overall states to be feeling better (Yani Ding) Labs, Micro, & Vital Signs Results Date Time Temp Pulse Resp B/P (MAP) Pulse Ox O2 Delivery O2 Flow Rate FiO2 11/23/17 12:04 97.3 62 20 153/70 (97) 98 11/23/17 07:35 97.8 66 20 187/86 (119) 99 11/23/17 05:40 65 11/23/17 04:00 97.4 72 16 170/74 (106) 98 11/23/17 03:04 60 11/23/17 01:14 66 11/23/17 00:12 98.2 65 20 181/80 (113) 99 11/22/17 20:00 97.3 64 18 177/74 (108) 99 11/22/17 17:20 20 11/22/17 16:31 97.7 65 20 152/88 (109) 98 Constitutional Vital Signs Date Time Temp Pulse Resp B/P (MAP) Pulse Ox O2 Delivery O2 Flow Rate FiO2 11/23/17 12:04 97.3 62 20 153/70 (97) 98 11/23/17 07:35 97.8 66 20 187/86 (119) 99 11/23/17 05:40 65 11/23/17 04:00 97.4 72 16 170/74 (106) 98 11/23/17 03:04 60 11/23/17 01:14 66 11/23/17 00:12 98.2 65 20 181/80 (113) 99 11/22/17 20:00 97.3 64 18 177/74 (108) 99 11/22/17 17:20 20 11/22/17 16:31 97.7 65 20 152/88 (109) 98 (Yani Ding) Review of Systems Constitutional: DENIES: Fever, Chills Neurologic: DENIES: Localized weakness (Yani Ding) Physical Exam Mr. Mehta is alert, awake and oriented to time, place and person. Speech is fluent. Cranial nerve examination: pupils equal, round, and reactive to light. EOMs are intact. Facial motor are normal and symmetrical Neck is soft and supple. Muscle strength is 5/5 in all muscle groups of both upper and lower extremities Sensory examination is intact to light touch in both the upper and lower extremities, symmetrically. Deep tendon reflexes are 2+ in the upper and lower extremities. (Yani Ding) Mr. Mehta is alert, awake and oriented to time, place and person. Speech is fluent. Cranial nerve examination: pupils equal, round, and reactive to light. EOMs are intact. Facial motor are normal and symmetrical Neck is soft and supple. Muscle strength is 5/5 in all muscle groups of both upper and lower extremities Sensory examination is intact to light touch in both the upper and lower extremities, symmetrically. Deep tendon reflexes are 2+ in the upper and lower extremities. (Miguelito Romero MD) Medications Current Medications Current Medications Medications (Trade) Dose Ordered Sig/Jatin Route PRN Reason Start Time Stop Time Status Last Admin Dose Admin Sodium Chloride (NS Flush) 2 ml UNSCH PRN IV FLUSH FLUSH AFTER USING IV ACCESS 1/2/18 03:00 Sodium Chloride (NS Flush) 2 ml BID IV FLUSH 11/21/17 09:00 11/23/17 09:00 Lisinopril (Prinivil) 20 mg Q12HR PO 11/21/17 09:00 11/23/17 07:44 Dextrose (D50w (Vial) Inj) 50 ml UNSCH PRN IV PUSH HYPOGLYCEMIA-SEE COMMENTS 11/21/17 03:00 Glucagon (Glucagon Inj) 1 mg UNSCH PRN OTHER HYPOGLYCEMIA-SEE COMMENTS 11/21/17 03:00 Insulin Aspart (NovoLOG SUPPLEMENTAL SCALE) 1 ACHS SLIDING SCALE SQ 11/21/17 08:00 11/23/17 13:03 Clonidine (Catapres) 0.2 mg Q6H PRN PO SBP>180, DBP>110 11/21/17 17:00 Hydrochlorothiazide (Hydrodiuril) 50 mg DAILY PO 11/23/17 09:00 11/23/17 07:44 Oxycodone HCl (Roxicodone) 5 mg Q4H PRN PO pain 3-5 11/22/17 11:30 Oxycodone HCl (Roxicodone) 10 mg Q4H PRN PO PAIN 6-10 11/22/17 12:00 11/23/17 06:47 Pantoprazole Sodium (Protonix) 40 mg DAILY PO 11/22/17 12:00 11/23/17 07:45 Senna/Docusate Sodium (Ashley-Colace) 1 tab BID PO 11/22/17 12:00 11/23/17 07:45 Nifedipine (Procardia Xl) 60 mg DAILY PO 11/24/17 09:00 Diazepam (Valium) 5 mg TID PO 11/23/17 09:45 11/23/17 13:03 Ketorolac Tromethamine (Toradol Inj) 30 mg Q8HR IV PUSH 11/23/17 09:45 11/28/17 09:44 11/23/17 14:21 (Yani Ding) Medical Decision Making MDM Remarks 47 y/o male with brain mass follow up MRI Brain with stable 8 mm nonenhancing lesion, prob hemosiderin deposition, MRA head and previous CTA Head negative for aneurysm or AVMs Hypertensive crisis (Yani Ding) Plan Plan Remarks MRI Brain reviewed to be nonenhancing lesion, no evidence of aneurysm or AVM on MRA again discussed with Mr. Mehta the alternatives of treatment, including the possibility of stereotactic biopsy of the lesion vs nonsurgical management, patient continues to requests nonsurgical management at this time cont medical management (Yani Ding) Attending Statement Continue neuro checks MRI Brain reviewed to be nonenhancing lesion, no evidence of aneurysm or AVM on MRA again discussed with Mr. Mehta the alternatives of treatment, including the possibility of stereotactic biopsy of the lesion vs nonsurgical management, patient continues to requests nonsurgical management Pulmonary.. Continue aggressive pulmonary toilette, nasotracheal suction, and breathing treatments with nebulizers. Nutrition. NPO Renal. monitor closely urine output, BUN and creatinine Endocrine. Monitor serial Acu checks and SSI as needed in detail ID monitor for signs of infection Protonix for stress ulcer prophylaxis Anand hose and SCD's for DVT prophylaxis. The exam, history, and the medical decision-making described in the above note were completed with the assistance of the mid-level provider. I reviewed and agree with the findings presented. I attest that I had a [id number] encounter with the patient on the same day, and personally performed and documented my assessment and findings in the medical record. (Miguelito Romero MD) Yani Ding Nov 23, 2017 14:34 Miguelito Romero MD Nov 25, 2017 14:13
[2017-11-24] VITALS (9 sets, daily range): BP systolic 133–177; BP diastolic 63–84; PULSE 66–95; RESP 18–19; TEMP 97.4–98.1; O2SAT 95–98
[2017-11-24] MEDS: KETOROLAC TROMETHAMINE 30 MG/ML (IVP) VIAL IV PUSH SCH (05:57)
[2017-11-24] MEDS: INSULIN ASPART SUPPLEMENTAL SCALE SQ SCH ×4 (08:33→21:30)
[2017-11-24] MEDS: PANTOPRAZOLE SOD 40 MG DELAYED RELEASE TAB PO SCH (08:34)
[2017-11-24] MEDS: HYDROCHLOROTHIAZIDE 50 MG TAB PO SCH (08:34)
[2017-11-24] MEDS: DIAZEPAM 5 MG TAB PO SCH ×3 (08:34→17:31)
[2017-11-24] MEDS: NIFEdipine 60 MG SUSTAINED RELEASE TAB PO SCH (08:34)
[2017-11-24] MEDS: DOCUSATE SODIUM 50 MG/SENNA 8.6 MG TAB PO SCH ×2 (08:34→21:25)
[2017-11-24] MEDS: LISINOPRIL 20 MG TAB PO SCH (08:34)
[2017-11-24] MEDS: SODIUM CHLORIDE 0.9% FLUSH 10 ML FLUSH IV FLUSH SCH ×2 (08:34→21:26)
[2017-11-24 08:42] LABS: HEMATOCRIT 41.7 % (39.0-51.0); HEMOGLOBIN 13.9 GM/DL (13.0-17.0); MEAN CELL VOLUME 83.6 FL (80.0-100.0); MEAN CORPUSCULAR HGB CONC 33.5 % (32.0-36.0); MEAN PLATELET VOLUME 9.4 FL (7.0-11.0); PLATELET COUNT 362 TH/MM3 (150-450); RED BLOOD COUNT 4.98 MIL/MM3 (4.50-5.90); RED CELL DISTRIBUTION WIDTH 13.8 % (11.6-17.2); WHITE BLOOD COUNT 6.1 TH/MM3 (4.0-11.0)
[2017-11-24 09:14] LABS: ALBUMIN 3.4 GM/DL (3.4-5.0); BICARBONATE 28.2 MEQ/L (21.0-32.0); CREATININE 1.65 MG/DL (0.60-1.30); DIRECT BILIRUBIN ADULT 0.1 MG/DL (0.0-0.2); INDIRECT BILIRUBIN 0.4 MG/DL (0.0-0.8); MAGNESIUM 2.1 MG/DL (1.5-2.5); TOTAL BILIRUBIN ADULT 0.5 MG/DL (0.2-1.0)
--- NOTE | 2017-11-24 10:23 | HHI.NSPN ---
(Yani Ding) Note Status Status: Progress Note (Yani Ding) Status: Progress Note (Miguelito Romero MD) Interval History Interval History This is a 47-year-old male with a history of uncontrolled hypertension, type 2 diabetes mellitus and a brain lesion initially diagnosed in April of this year. He comes to the emergency department with severe right shoulder and left flank pain. He reports pain in his shoulder is "in his joint." He also complains of left-sided flank pain. He has a known right frontal per midline mass previously evaluated in April of this year as a possible venous malformation or hemangioma versus PROGRAM DIRECTOR/AIR PERSONALITY lymphoma or glioblastoma. The patient elected to not have the mass biopsied at that time and was supposed to follow-up as outpatient 3 months after discharge. He reports he was unable to do this secondary to losing his insurance. He denies any headaches at this time but does state he does have intermittent headaches. Patient was found to be hypertensive in the ED with a blood pressure of 250/ 111. He reports noncompliance with his blood pressure medications secondary to financial restraints and not having a PCP at this time. Neurosurgery consultation was requested 11/22/17: reports to be doing ok, dw patient regarding f/u MRIs, he requests nonsurgical management. 11/23/17: no neurological changes, overall states to be feeling better 11/24/17: stable neurological exam, eager for discharge home (Yani Ding) Labs, Micro, & Vital Signs Results Date Time Temp Pulse Resp B/P (MAP) Pulse Ox O2 Delivery O2 Flow Rate FiO2 11/24/17 08:14 97.6 71 18 133/71 (91) 95 11/24/17 04:00 97.6 66 18 140/63 (88) 98 11/24/17 00:00 97.6 73 19 161/80 (107) 98 11/23/17 20:44 114 11/23/17 20:00 98.3 82 20 147/88 (107) 97 11/23/17 16:33 97.9 72 20 132/74 (93) 97 11/23/17 12:04 97.3 62 20 153/70 (97) 98 11/23/17 11:23 19 Constitutional Vital Signs Date Time Temp Pulse Resp B/P (MAP) Pulse Ox O2 Delivery O2 Flow Rate FiO2 11/24/17 08:14 97.6 71 18 133/71 (91) 95 11/24/17 04:00 97.6 66 18 140/63 (88) 98 11/24/17 00:00 97.6 73 19 161/80 (107) 98 11/23/17 20:44 114 11/23/17 20:00 98.3 82 20 147/88 (107) 97 11/23/17 16:33 97.9 72 20 132/74 (93) 97 11/23/17 12:04 97.3 62 20 153/70 (97) 98 11/23/17 11:23 19 (Yani Ding) Physical Exam Mr. Mehta is alert, awake and oriented to time, place and person. Speech is fluent. Cranial nerve examination: pupils equal, round, and reactive to light. EOMs are intact. Facial motor are normal and symmetrical Neck is soft and supple. No meningismus or nuchal rigidity Muscle strength is 5/5 in all muscle groups of both upper and lower extremities Sensory examination is intact to light touch in both the upper and lower extremities, symmetrically. Deep tendon reflexes are 2+ in the upper and lower extremities. (Yani Ding) Mr. Mehta is alert, awake and oriented to time, place and person. Speech is fluent. Cranial nerve examination: pupils equal, round, and reactive to light. EOMs are intact. Facial motor are normal and symmetrical Neck is soft and supple. No meningismus or nuchal rigidity Muscle strength is 5/5 in all muscle groups of both upper and lower extremities Sensory examination is intact to light touch in both the upper and lower extremities, symmetrically. Deep tendon reflexes are 2+ in the upper and lower extremities. (Miguelito Romero MD) Medications Current Medications Current Medications Medications (Trade) Dose Ordered Sig/Jatin Route PRN Reason Start Time Stop Time Status Last Admin Dose Admin Sodium Chloride (NS Flush) 2 ml UNSCH PRN IV FLUSH FLUSH AFTER USING IV ACCESS 11/21/17 03:00 Sodium Chloride (NS Flush) 2 ml BID IV FLUSH 11/21/17 09:00 11/24/17 08:34 Lisinopril (Prinivil) 20 mg Q12HR PO 11/21/17 09:00 11/24/17 08:34 Dextrose (D50w (Vial) Inj) 50 ml UNSCH PRN IV PUSH HYPOGLYCEMIA-SEE COMMENTS 11/21/17 03:00 Glucagon (Glucagon Inj) 1 mg UNSCH PRN OTHER HYPOGLYCEMIA-SEE COMMENTS 11/21/17 03:00 Insulin Aspart (NovoLOG SUPPLEMENTAL SCALE) 1 ACHS SLIDING SCALE SQ 11/21/17 08:00 11/24/17 08:33 Clonidine (Catapres) 0.2 mg Q6H PRN PO SBP>180, DBP>110 11/21/17 17:00 Hydrochlorothiazide (Hydrodiuril) 50 mg DAILY PO 11/23/17 09:00 11/24/17 08:34 Oxycodone HCl (Roxicodone) 5 mg Q4H PRN PO pain 3-5 11/22/17 11:30 Oxycodone HCl (Roxicodone) 10 mg Q4H PRN PO PAIN 6-10 11/22/17 12:00 11/23/17 20:12 Pantoprazole Sodium (Protonix) 40 mg DAILY PO 11/22/17 12:00 11/24/17 08:34 Senna/Docusate Sodium (Ashley-Colace) 1 tab BID PO 11/22/17 12:00 11/24/17 08:34 Nifedipine (Procardia Xl) 60 mg DAILY PO 11/24/17 09:00 11/24/17 08:34 Diazepam (Valium) 5 mg TID PO 11/23/17 09:45 11/24/17 08:34 Ketorolac Tromethamine (Toradol Inj) 30 mg Q8HR IV PUSH 11/23/17 09:45 11/28/17 09:44 11/24/17 05:57 (Yani Ding) Current Medications Current Medications Labetalol HCl (Trandate Inj) 10 mg ONCE ONCE IV PUSH Last administered on at 00:56; Start 11/21/17 at 00:45; Stop 11/21/17 at 00:46; Status DC Morphine Sulfate (Morphine Inj) 4 mg ONCE ONCE IV PUSH Last administered on 11/21/17at 00:56; Start 11/21/17 at 00:45; Stop 11/21/17 at 00:46; Status DC Ondansetron HCl (Zofran Inj) 4 mg ONCE ONCE IV PUSH Last administered on at 00:57; Start 11/21/17 at 00:45; Stop 11/21/17 at 00:46; Status DC Iohexol (Omnipaque 350 Inj) 100 ml STK-MED ONCE IVCONTRAST Last administered on 11/21/17at 01:26; Start 11/21/17 at 01:26; Stop 11/21/17 at 01:27; Status DC Nitroglycerin (Nitroglycerin 2% Oint) 1 inch ONCE ONCE TOPICAL Last administered on 11/21/17at 02:18; Start 11/21/17 at 02:15; Stop 11/21/17 at 02:16; Status DC Aspirin (Aspirin Chew) 324 mg ONCE ONCE CHEW Last administered on 11/21/17at 02: 18; Start 11/21/17 at 02:15; Stop 11/21/17 at 02:16; Status DC Enalaprilat (Vasotec Inj) 1.25 mg ONCE ONCE IV PUSH Last administered on at 02:18; Start 11/21/17 at 02:15; Stop 11/21/17 at 02:16; Status DC Sodium Chloride (NS Flush) 2 ml UNSCH PRN IV FLUSH FLUSH AFTER USING IV ACCESS ; Start 11/21/17 at 03:00; Stop 11/25/17 at 11:12; Status DC Sodium Chloride (NS Flush) 2 ml BID IV FLUSH Last administered on 11/24/17at 21: 26; Start 11/21/17 at 09:00; Stop 11/25/17 at 11:12; Status DC Clonidine (Catapres) 0.1 mg Q6H PRN PO SEE LABEL COMMENTS Last administered on 11/21/17at 11:58; Start 11/21/17 at 03:00; Stop 11/21/17 at 16:47; Status DC Lisinopril (Prinivil) 20 mg Q12HR PO Last administered on 11/24/17at 08:34; Start 11/21/17 at 09:00; Stop 11/24/17 at 11:01; Status DC Hydrochlorothiazide (Hydrodiuril) 25 mg DAILY PO Last administered on 11/22/17at 08:39; Start 11/21/17 at 09:00; Stop 11/22/17 at 11:18; Status DC Nifedipine (Procardia Xl) 30 mg DAILY PO Last administered on 11/23/17at 07:44; Start 11/21/17 at 09:00; Stop 11/23/17 at 09:20; Status DC Lorazepam (Ativan Inj) 1 mg ONCE ONCE IV PUSH Last administered on 11/21/17at 03 :44; Start 11/21/17 at 03:00; Stop 11/21/17 at 03:15; Status DC Dextrose (D50w (Vial) Inj) 50 ml UNSCH PRN IV PUSH HYPOGLYCEMIA-SEE COMMENTS; Start 11/21/17 at 03:00; Stop 11/25/17 at 11:12; Status DC Glucagon (Glucagon Inj) 1 mg UNSCH PRN OTHER HYPOGLYCEMIA-SEE COMMENTS; Start 11/21/17 at 03:00; Stop 11/25/17 at 11:12; Status DC Insulin Aspart (NovoLOG SUPPLEMENTAL SCALE) 1 ACHS SLIDING SCALE SQ Last administered on 11/24/17at 21:30; Start 11/21/17 at 08:00; Stop 11/25/17 at 11:12; Status DC Hydralazine HCl (Apresoline Inj) 10 mg ONCE ONCE IV PUSH Last administered on 11/21/17at 03:44; Start 11/21/17 at 03:30; Stop 11/21/17 at 03:31; Status DC Lorazepam (Ativan Inj) 1 mg ONCE IV PUSH Last administered on 11/21/17at 10:15; Start 11/21/17 at 09:30; Stop 11/21/17 at 12:00; Status DC Gadodiamide (Omniscan Pf Inj) 25 ml STK-MED ONCE IVCONTRAST Last administered on 11/21/17at 11:53; Start 11/21/17 at 11:53; Stop 11/21/17 at 11:54; Status DC Clonidine (Catapres) 0.2 mg Q6H PRN PO SBP>180, DBP>110; Start 11/21/17 at 17:00 ; Stop 11/25/17 at 11:12; Status DC Hydrochlorothiazide (Hydrodiuril) 50 mg DAILY PO Last administered on 11/24/17at 08:34; Start 11/23/17 at 09:00; Stop 11/24/17 at 10:56; Status DC Hydrochlorothiazide (Hydrodiuril) 25 mg ONCE ONCE PO Last administered on at 12:24; Start 11/22/17 at 12:00; Stop 11/22/17 at 12:01; Status DC Oxycodone HCl (Roxicodone) 5 mg Q4H PRN PO pain 3-5; Start 11/22/17 at 11:30; Stop 11/25/17 at 11:12; Status DC Oxycodone HCl (Roxicodone) 10 mg Q4H PRN PO PAIN 6-10 Last administered on at 20:12; Start 11/22/17 at 12:00; Stop 11/25/17 at 11:12; Status DC Cyclobenzaprine HCl (Flexeril) 10 mg ONCE ONCE PO Last administered on at 12:25; Start 11/22/17 at 11:30; Stop 11/22/17 at 11:31; Status DC Cyclobenzaprine HCl (Flexeril) 10 mg Q8H PRN PO muscle spasm; Start 11/22/17 at 11:30; Stop 11/23/17 at 09:40; Status DC Pantoprazole Sodium (Protonix) 40 mg DAILY PO Last administered on 11/25/17at 07: 41; Start 11/22/17 at 12:00; Stop 11/25/17 at 11:12; Status DC Senna/Docusate Sodium (Ashley-Colace) 1 tab BID PO Last administered on 11/25/17at 07:41; Start 11/22/17 at 12:00; Stop 11/25/17 at 11:12; Status DC Nifedipine (Procardia Xl) 60 mg DAILY PO Last administered on 11/25/17at 07:41; Start 11/24/17 at 09:00; Stop 11/25/17 at 11:12; Status DC Nifedipine (Procardia Xl) 30 mg ONCE ONCE PO Last administered on 11/23/17at 10: 22; Start 11/23/17 at 09:30; Stop 11/23/17 at 09:31; Status DC Diazepam (Valium) 5 mg TID PO Last administered on 11/25/17at 07:41; Start at 09:45; Stop 11/25/17 at 11:12; Status DC Ketorolac Tromethamine (Toradol Inj) 30 mg Q8HR IV PUSH Last administered on 11/24/17at 05:57; Start 11/23/17 at 09:45; Stop 11/24/17 at 10:56; Status DC Sodium Chloride 1,000 ml @ 999 mls/hr BOLUS ONCE IV Last administered on at 11:49; Start 11/24/17 at 11:00; Stop 11/24/17 at 12:00; Status DC Sodium Chloride 1,000 ml @ 75 mls/hr [id number] IV Last administered on 11/25/17at 02:37; Start 11/24/17 at 12:00; Stop 11/25/17 at 11:12; Status DC Hydralazine HCl (Apresoline) 25 mg Q8HR PO Last administered on 11/25/17at 05:50 ; Start 11/24/17 at 14:00; Stop 11/25/17 at 11:12; Status DC Insulin Detemir (Levemir Inj) 15 units DAILY SQ Last administered on 11/25/17at 07:41; Start 11/24/17 at 11:15; Stop 11/25/17 at 11:12; Status DC (Miguelito Romero MD) Medical Decision Making MDM Remarks 47 y/o male with brain mass follow up MRI Brain with stable 8 mm nonenhancing lesion, prob hemosiderin deposition, MRA head and previous CTA Head negative for aneurysm or AVMs Hypertensive crisis (Yani Ding) Plan Plan Remarks MRI Brain reviewed to be nonenhancing lesion, no evidence of aneurysm or AVM on MRA again discussed with MrNatalie Bright the alternatives of treatment, including the possibility of stereotactic biopsy of the lesion vs nonsurgical management, patient continues to requests nonsurgical management at this time cont medical management clear for dc from NRS standpoint (Yani Ding) Attending Statement Continue neuro checks Continue nonoperative conservative follow-up Cleared for discharge The exam, history, and the medical decision-making described in the above note were completed with the assistance of the mid-level provider. I reviewed and agree with the findings presented. I attest that I had a [id number] encounter with the patient on the same day, and personally performed and documented my assessment and findings in the medical record. (Miguelito Romero MD) Yani Ding Nov 24, 2017 10:23 Miguelito Romero MD Nov 26, 2017 14:11
[2017-11-24] MEDS ORDERED: SODIUM CHLOR 0.9% 1000 ML INJ 1,000 ML IV ONE (11:00)
--- NOTE | 2017-11-24 11:08 | HHI.PR ---
Subjective Remarks The patient said that he feels a lot better and was looking forward to going home. He has been ambulatory. Pain in his shoulder and flank were improved. Objective Vitals Vital Signs Date Time Temp Pulse Resp B/P (MAP) Pulse Ox O2 Delivery O2 Flow Rate FiO2 11/24/17 08:14 97.6 71 18 133/71 (91) 95 11/24/17 08:00 95 11/24/17 04:00 97.6 66 18 140/63 (88) 98 11/24/17 00:00 97.6 73 19 161/80 (107) 98 11/23/17 20:44 114 11/23/17 20:00 98.3 82 20 147/88 (107) 97 11/23/17 16:33 97.9 72 20 132/74 (93) 97 11/23/17 12:04 97.3 62 20 153/70 (97) 98 11/23/17 11:23 19 I/O 11/23/17 11/23/17 11/23/17 11/24/17 11/24/17 11/24/17 07:00 15:00 23:00 07:00 15:00 23:00 Intake Total 1440 ml Balance 1440 ml Intake Oral 1440 ml # Voids 4 4 4 # Bowel Movements 1 1 0 Result Diagram: 11/24/17 0740 11/24/17 0740 Imaging Last Impressions Shoulder X-Ray 11/22/17 0000 Signed Impressions: Service Date/Time: Wednesday, November 22, 2017 13:04 - CONCLUSION: Significant subacromial spurring, no fracture Ry Preston MD FACR Head CT 11/21/17 004 Signed Impressions: Service Date/Time: Tuesday, November 21, 2017 01:19 - CONCLUSION: 1. Unchanged hyperdense lesion involving anterior corpus callosum previously evaluated with MRI. 2. No acute intracranial abnormality. Yvan Spivey Jr., MD Abdomen/Pelvis CT 11/21/17 004 Signed Impressions: Service Date/Time: Tuesday, November 21, 2017 01:22 - CONCLUSION: 1. No acute abnormality. 2. Hepatic steatosis. Yvan Spivey Jr., MD Head Magnetic Resonance Angiography 11/21/17 0000 Signed Impressions: Service Date/Time: Tuesday, November 21, 2017 10:40 - CONCLUSION: Normal examination for a patient of this age. Too Mckoy MD Brain MRI 11/21/17 0000 Signed Impressions: Service Date/Time: Tuesday, November 21, 2017 10:40 - CONCLUSION: 1. 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 No change from April 2017. No mass effect or shift. Too Mckoy MD Chest X-Ray 11/20/17 1588 Signed Impressions: Service Date/Time: Tuesday, November 21, 2017 00:05 - CONCLUSION: 1. Mild cardiomegaly. Clear lungs. Yvan Spivey Jr., MD Objective Remarks GENERAL: Obese male in NAD. SKIN: No rashes, ecchymoses or lesions. Cool and dry. HEAD: Atraumatic. Normocephalic. No temporal or scalp tenderness. EYES: Pupils equal round and reactive. Extraocular motions intact. No scleral icterus. No injection or drainage. ENT: Nose without bleeding, purulent drainage or septal hematoma. Throat without erythema, tonsillar hypertrophy or exudate. Uvula midline. Airway patent. NECK: Trachea midline. No JVD or lymphadenopathy. Supple, nontender, no meningeal signs. CARDIOVASCULAR: Regular rate and rhythm without murmurs, gallops, or rubs. RESPIRATORY: Clear to auscultation. Breath sounds equal bilaterally. No wheezes , rales, or rhonchi. GASTROINTESTINAL: Abdomen soft, non-tender, nondistended. No hepato-splenomegaly , or palpable masses. No guarding. Left sided flank tenderness, no CVA tenderness. MUSCULOSKELETAL: Right shoulder tender to palpation anteriorly. Restricted ROM s /t pain. 1+ edema in the lower extremities. Tenderness to palpation of left lower back. NEUROLOGICAL: Awake and alert. Cranial nerves II through XII intact. Motor and sensory grossly within normal limits. Normal speech. PSYCH: Mood and affect appropriate. Medications and IVs Current Medications Medications (Trade) Dose Ordered Sig/Jatin Route Start Time Stop Time Status Last Admin (NS Flush) 2 ml UNSCH PRN IV FLUSH 11/21/17 03:00 (NS Flush) 2 ml BID IV FLUSH 11/21/17 09:00 11/24/17 08:34 (D50w (Vial) Inj) 50 ml UNSCH PRN IV PUSH 11/21/17 03:00 (Glucagon Inj) 1 mg UNSCH PRN OTHER 11/21/17 03:00 (NovoLOG SUPPLEMENTAL SCALE) 1 ACHS SLIDING SCALE SQ 11/21/17 08:00 11/24/17 08:33 (Catapres) 0.2 mg Q6H PRN PO 11/21/17 17:00 (Roxicodone) 5 mg Q4H PRN PO 11/22/17 11:30 (Roxicodone) 10 mg Q4H PRN PO 11/22/17 12:00 11/23/17 20:12 (Protonix) 40 mg DAILY PO 11/22/17 12:00 11/24/17 08:34 (Ashley-Colace) 1 tab BID PO 11/22/17 12:00 11/24/17 08:34 (Procardia Xl) 60 mg DAILY PO 11/24/17 09:00 11/24/17 08:34 (Valium) 5 mg TID PO 11/23/17 09:45 11/24/17 08:34 Sodium Chloride 1,000 ml @ 999 mls/hr BOLUS ONCE IV 11/24/17 11:00 11/24/17 12:00 Sodium Chloride 1,000 ml @ 75 mls/hr [id number] IV 11/24/17 11:15 11/25/17 00:34 UNV (Apresoline) 25 mg Q8HR PO 11/24/17 14:00 UNV A/P Assessment and Plan Hypertensive crisis Patient is status post Vasotec and labetalol in the ED. He ran out of his home meds 30 days ago. Blood pressure improved. - Increased Procardia to 60 mg daily. DC hydrochlorothiazide and lisinopril in the setting of renal failure. Start hydralazine 25 mg every 8 hours. - Clonidine when necessary. Brain lesion Patient with previous evaluation of brain lesion with MRI that showed possible venous malformation or hemangioma and a CTA head that showed possible TOWER OBSERVER lymphoma versus glioblastoma. Patient was noncompliant with follow-up. Previously evaluated by neurosurgery who recommended biopsy versus repeat MRI in 3 months. Repeat MRI stable. - follow up with neurosurgery. The pt prefers nonoperative management. Cleared for discharge by neurosurgery. Chest pain He has shoulder pain and flank pain. Not complaining of chest pain. Trops flat. EKG showed normal sinus rhythm without ST segment elevations or depressions. - treat shoulder and flank pain Type 2 diabetes mellitus Well controlled. - Holding home metformin. - Sliding scale insulin. - Levemir 15 units daily. Shoulder and flank pain Likely musculoskeletal in origin as he started to develop them while working and pain is worse with movement. CT abdomen/pelvis negative. Shoulder x ray with significant subacromial spurring. The pt has lower left back pain on exam, negative SLR on that side. Improved. - OT for right shoulder pain. - physical therapy. - pain control with a bowel regimen. - standing Valium. DC Toradol in the setting of renal failure. Acute renal failure Possibly secondary to use of Toradol, chlorothiazide and lisinopril. - Discontinue above medications. - IV fluid bolus followed by infusion. - Follow BMP in the morning. PPx: SCDs Discharge Planning Discharge home tomorrow if creatinine is improved and blood pressure remains controlled on new regimen Jhon Vance DO Nov 24, 2017 11:08
[2017-11-24] MEDS: INSULIN DETEMIR 100 UNITS/ML VIAL SQ SCH (12:08)
--- NOTE | 2017-11-24 12:17 | RADRPT ---
EXAM DATE/TIME: 11/24/2017 11:25 [facility] COMPARISON: No previous studies available for comparison. INDICATIONS : Abnormal labs. MEDICAL HISTORY : Diplopia. Headaches. Hypertension. Sleep apnea. Diabetes. Brain lesion. Acute renal failure. SURGICAL HISTORY : None. ENCOUNTER: Initial ACUITY: 1 day PAIN SCORE: 0/10 LOCATION: Bilateral flank MEASUREMENTS: RIGHT KIDNEY: 8.9 x 4.3 x 4.8 cm LEFT KIDNEY: 11.2 x 5.7 x 4.1 cm FINDINGS: RIGHT KIDNEY: Renal cortex is normal in thickness and echotexture. No hydronephrosis, stone, or mass. LEFT KIDNEY: Renal cortex is normal in thickness and echotexture. No hydronephrosis, stone, or mass. 1.7 cm cyst lower pole BLADDER: Within normal limits given the degree of distension. CONCLUSION: 1. No acute findings. No hydronephrosis. 1.7 cm left renal cyst. Too Mckoy MD on November 24, 2017 at 12:15 Board Certified Radiologist. This report was verified electronically.
[2017-11-24] MEDS: SODIUM CHLOR 0.9% 1000 ML INJ 1,000 ML IV SCH (12:46)
[2017-11-24] MEDS: hydrALAZINE HCL 25 MG TAB PO SCH ×2 (14:39→21:25)
[2017-11-25] VITALS: BP 157/82; PULSE 78; RESP 18; TEMP 97.8; O2SAT 97
[2017-11-25 01:07] VITALS: PULSE 88
[2017-11-25] MEDS: SODIUM CHLOR 0.9% 1000 ML INJ 1,000 ML IV SCH ×2 (01:20→02:37)
[2017-11-25 04:00] VITALS: BP 133/72; PULSE 77; RESP 18; TEMP 98; O2SAT 100
[2017-11-25] MEDS: hydrALAZINE HCL 25 MG TAB PO SCH (05:50)
[2017-11-25] MEDS: SODIUM CHLORIDE 0.9% FLUSH 10 ML FLUSH IV FLUSH SCH (07:40)
[2017-11-25] MEDS: INSULIN ASPART SUPPLEMENTAL SCALE SQ SCH (07:40)
[2017-11-25] MEDS: DIAZEPAM 5 MG TAB PO SCH (07:41)
[2017-11-25] MEDS: INSULIN DETEMIR 100 UNITS/ML VIAL SQ SCH (07:41)
[2017-11-25] MEDS: DOCUSATE SODIUM 50 MG/SENNA 8.6 MG TAB PO SCH (07:41)
[2017-11-25] MEDS: PANTOPRAZOLE SOD 40 MG DELAYED RELEASE TAB PO SCH (07:41)
[2017-11-25] MEDS: NIFEdipine 60 MG SUSTAINED RELEASE TAB PO SCH (07:41)
[2017-11-25 07:46] VITALS: BP 147/73; PULSE 76; RESP 20; TEMP 97.5; O2SAT 100
[2017-11-25 08:00] VITALS: PULSE 87
[2017-11-25 08:59] LABS: BICARBONATE 29.7 MEQ/L (21.0-32.0); CALCIUM 8.6 MG/DL (8.5-10.1); CREATININE 1.29 MG/DL (0.60-1.30)
--- NOTE | 2017-11-25 09:09 | HHI.DCPOC ---
Discharge Care Plan Diagnosis: (1) Acute renal failure (2) Muscle spasm (3) Bone spur (4) Hypertensive urgency (5) Intracranial mass Goals to Promote Your Health * To prevent worsening of your condition and complications * To maintain your health at the optimal level Directions to Meet Your Goals Take your medications as prescribed Follow your dietary instruction Follow activity as directed Keep your appointments as scheduled Take your immunizations and boosters as scheduled If your symptoms worsen call your PCP, if no PCP go to Urgent Care Center or Emergency Room Smoking is Dangerous to Your Health. Avoid second hand smoke Call the 24-hour hour crisis hotline for domestic abuse at Jhon Vance DO Nov 25, 2017 09:09
[2017-11-25] MEDS ORDERED: HYDR-3799 PO (09:21)
[2017-11-25] MEDS ORDERED: OXYC-392 PO (09:21)
[2017-11-25] MEDS ORDERED: DIAZ5 PO (09:21)
[2017-11-25] MEDS ORDERED: NIFE60TA8 PO (09:21)
--- NOTE | 2017-11-25 09:32 | HHI.DS ---
Discharge Summary Admission Date Nov 23, 2017 at 13:27 Discharge Date: Nov 25, 2017 Admitting Diagnosis Hypertensive urgency, chest pain (1) Bone spur ICD Code: M77.9 - Enthesopathy, unspecified Diagnosis: Principal (2) Acute renal failure ICD Code: N17.9 - Acute kidney failure, unspecified Diagnosis: Principal (3) Muscle spasm ICD Code: M62.838 - Other muscle spasm Diagnosis: Principal (4) Intracranial mass ICD Code: R90.0 - Intracranial mass Status: Acute (5) Hypertensive urgency ICD Code: I16.0 - Hypertensive urgency Diagnosis: Principal Status: Acute (6) Chest pain ICD Code: R07.9 - Chest pain, unspecified Diagnosis: Principal Status: Acute Procedures None Brief History - From Admission 47-year-old male with a past medical history significant for uncontrolled hypertension, type 2 diabetes mellitus and a brain lesion initially diagnosed in April of this year presents to the emergency department complaining of right shoulder and left flank pain. The patient reports he feels as if the pain in his shoulder is "in his joint." He has full range of motion of his shoulder however experiences pain with movement. He also complains of left-sided flank pain. Creatinine 1.1, which is baseline for the patient. CT of the abdomen and pelvis with no acute findings. The patient has a known right frontal per midline mass previously evaluated in April of this year as a possible venous malformation or hemangioma versus WAIST PLEATER lymphoma or glioblastoma. The patient elected to not have the mass biopsied at that time and was supposed to follow- up with neurosurgery and a brain MRI 3 months after discharge. He reports he was unable to do this secondary to losing his insurance. He denies any headaches at this time but does state he does have intermittent migraines. Patient was found to be hypertensive in the ED with a blood pressure of 250/ 111. He reports noncompliance with his blood pressure medications secondary to financial restraints and not having a PCP at this time. While being evaluated in the emergency department, the patient started to experience chest pain/ pressure. He states the pain is still present and feels like a squeezing sensation. Initial troponin negative. EKG shows normal sinus rhythm without ST segment elevations or depressions. CBC/BMP: 11/24/17 0740 11/25/17 0721 Significant Findings Laboratory Tests Test 11/24/17 07:40 11/25/17 07:21 Blood Urea Nitrogen 38 MG/DL (7-18) 31 MG/DL (7-18) Creatinine 1.65 MG/DL (0.60-1.30) Random Glucose 161 MG/DL (74-106) 166 MG/DL (74-106) Sodium Level 131 MEQ/L (136-145) Chloride Level 94 MEQ/L (98-107) Estimat Glomerular Filtration Rate 54 ML/MIN (>89) 72 ML/MIN (>89) Imaging Last Impressions Renal Ultrasound 11/24/17 0000 Signed Impressions: Service Date/Time: Friday, November 24, 2017 11:25 - CONCLUSION: 1. No acute findings. No hydronephrosis. 1.7 cm left renal cyst. Too Mckoy MD Shoulder X-Ray 11/22/17 0000 Signed Impressions: Service Date/Time: Wednesday, November 22, 2017 13:04 - CONCLUSION: Significant subacromial spurring, no fracture Ry Preston MD FACR Head CT 11/21/1740 Signed Impressions: Service Date/Time: Tuesday, November 21, 2017 01:19 - CONCLUSION: 1. Unchanged hyperdense lesion involving anterior corpus callosum previously evaluated with MRI. 2. No acute intracranial abnormality. Yvan Spivey Jr., MD Abdomen/Pelvis CT 11/21/1740 Signed Impressions: Service Date/Time: Tuesday, November 21, 2017 01:22 - CONCLUSION: 1. No acute abnormality. 2. Hepatic steatosis. Yvan Spivey Jr., MD Head Magnetic Resonance Angiography 11/21/17 0000 Signed Impressions: Service Date/Time: Tuesday, November 21, 2017 10:40 - CONCLUSION: Normal examination for a patient of this age. Too Mckoy MD Brain MRI 11/21/17 0000 Signed Impressions: Service Date/Time: Tuesday, November 21, 2017 10:40 - CONCLUSION: 1. 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 No change from April 2017. No mass effect or shift. Too Mckoy MD Chest X-Ray 11/20/17 4005 Signed Impressions: Service Date/Time: Tuesday, November 21, 2017 00:05 - CONCLUSION: 1. Mild cardiomegaly. Clear lungs. Yvan Spivey Jr., MD PE at Discharge GENERAL: Obese male in NAD. SKIN: No rashes, ecchymoses or lesions. Cool and dry. HEAD: Atraumatic. Normocephalic. No temporal or scalp tenderness. EYES: Pupils equal round and reactive. Extraocular motions intact. No scleral icterus. No injection or drainage. ENT: Nose without bleeding, purulent drainage or septal hematoma. Throat without erythema, tonsillar hypertrophy or exudate. Uvula midline. Airway patent. NECK: Trachea midline. No JVD or lymphadenopathy. Supple, nontender, no meningeal signs. CARDIOVASCULAR: Regular rate and rhythm without murmurs, gallops, or rubs. RESPIRATORY: Clear to auscultation. Breath sounds equal bilaterally. No wheezes , rales, or rhonchi. GASTROINTESTINAL: Abdomen soft, non-tender, nondistended. No hepato-splenomegaly , or palpable masses. No guarding. Left sided flank tenderness, no CVA tenderness. MUSCULOSKELETAL: Right shoulder slightly tender to palpation anteriorly. Restricted ROM s/t pain. 1+ edema in the lower extremities. NEUROLOGICAL: Awake and alert. Cranial nerves II through XII intact. Motor and sensory grossly within normal limits. Normal speech. PSYCH: Mood and affect appropriate. Pt update on day of discharge The patient was feeling well and stated that he wanted to go back to work soon. He said that his pain was well-controlled. He has been tolerating a diet. Hospital Course Hypertensive crisis/ chest pain Troponins were flat. EKG showed normal sinus rhythm without ST segment elevations or depressions. Chest x-ray significant for mild cardiomegaly. The patient received IV Vasotec and labetalol in the ED. He ran out of his home meds 30 days ago. We continued hydrochlorothiazide and lisinopril. We increased Procardia to 60 mg daily. We increased hydrochlorothiazide to 50 mg daily. Chest pain resolved. Hydrochlorothiazide and lisinopril were then discontinued secondary to renal failure. We started hydralazine 25 mg every 8 hours. The patient received clonidine when necessary. The patient's blood pressure improved. He will be discharged on hydralazine and the increased dose of Procardia. Brain lesion Patient with previous evaluation of brain lesion with MRI that showed possible venous malformation or hemangioma and a CTA head that showed possible WAIST PLEATER lymphoma versus glioblastoma. Patient was noncompliant with follow-up. Previously evaluated by neurosurgery who recommended biopsy versus repeat MRI in 3 months. Repeat MRI on this hospitalization was stable. Neurosurgery was consulted and cleared the patient for discharge. He will follow-up with neurosurgery as an outpatient. Type 2 diabetes mellitus We held the patient's home metformin and started a sliding scale along with Levemir 15 units daily. He will resume his home regimen upon discharge. Shoulder and flank pain Likely musculoskeletal in origin as he started to develop them while working and pain is worse with movement. CT abdomen/pelvis negative. Shoulder x ray with significant subacromial spurring. The pt has lower left back pain on exam, negative SLR on that side. He received occupational therapy for the right shoulder pain. We also had the patient work with physical therapy. The patient received pain control with a bowel regimen. He was started on standing Toradol and standing Valium. We discontinued Toradol in the setting of renal failure. His symptoms improved. He was given a note from work. He will be discharged with oxycodone and Valium. Acute renal failure We discontinued Toradol, lisinopril and hydrochlorothiazide. Renal ultrasound was significant only for a 1.7 cm renal cyst on the left. He received an IV fluid bolus followed by infusion. His creatinine improved. He will have a repeat BMP in one week. Pt Condition on Discharge: Good Discharge Disposition: Discharge Home Discharge Time: > 30 minutes Discharge Instructions DIET: Follow Instructions for: Heart Healthy Diet Activities you can perform: Weight Bearing as Henry Follow up Referrals: Neurosurgery - 2 Weeks with Miguelito Romero MD PCP Follow-up - 1 Week New Orders: BASIC METABOLIC PROF - 1 Week New Medications: Diazepam (Valium) 5 Mg Tab 5 MG PO TID PRN for muscle spasm, #20 TAB Hydralazine HCl (Hydralazine HCl) 25 Mg Tablet 25 MG PO Q8HR for Blood Pressure Management, #90 TAB 1 Refill Nifedipine ER 24 HR (Nifedipine ER 24 HR) 60 Mg Tab 60 MG PO DAILY for Blood Pressure Management, #30 TAB 1 Refill Oxycodone (Oxycodone) 5 Mg Tab 5 MG PO Q6HR PRN for PAIN SCALE 1 TO 10, #20 TAB Continued Medications: Metformin (Metformin) 500 Mg Tab 500 MG PO BIDPC for Blood Sugar Management, #60 TAB 0 Refills With meals Discontinued Medications: Hydrochlorothiazide (Hydrochlorothiazide) 25 Mg Tab 25 MG PO DAILY, #30 TAB 0 Refills [Lisinopril] () 20 MG TAB 20 MG PO BID for HTN, #60 TAB 0 Refills [NIFEdipine SR] () 30 MG TABCR 30 MG PO DAILY for HTN, #30 TAB.SR 0 Refills Jhon Vance DO Nov 25, 2017 09:32
== END 2017-11-25 10:45 | disposition home or self-care (01) | DRG 305 ==
LOC: NEPE 23:04 → INTOOBSV 11-21 02:18 → NEDA 11-21 02:18 → N05A 11-21 04:04 → OBSVTOIN 11-23 13:27
PROVIDERS: ADMIT Family Medicine; ATTEND Hospitalist
DX: I16.0 Hypertensive urgency (principal); N17.9 Acute kidney failure, unspecified; G93.89 Other specified disorders of brain; E11.9 Type 2 diabetes mellitus without complications; R10.9 Unspecified abdominal pain; M25.511 Pain in right shoulder; R07.89 Other chest pain; M75.81 Other shoulder lesions, right shoulder; M62.838 Other muscle spasm; Z91.14 Patient's other noncompliance with medication regimen; Z91.19 Patient's noncompliance with other medical treatment and regimen; Z79.84 Long term (current) use of oral hypoglycemic drugs
CPT/HCPCS: 70450; 70544; 70553; 71045; 73030; 74177; 76775; 80048; 80053; 80076; 81001; 82550; 82552; 82948; 83690; 83735; 83880; 84484; 85025; 85027; 85610; 85730; 86140; 93005; 96374; 96375; A9579; G8987-GO; G8988-GO; J0360; J1815; J1885; J2060; J2270; J2405; J7030; Q9967